=== PATIENT | female | born 1980 | race Two or more races ===

== ENCOUNTER 2021-03-03 12:47 | Outpatient (REF) | payer MEDICAID, SELFPAY ==
--- NOTE | ~2021-03-03 | US_ITS ---
EXAMINATION: US PELVIS CLINICAL INFORMATION: Frequent menses COMPARISON: None TECHNIQUE: Ultrasound of the pelvis is performed using both transabdominal and transvaginal transducers along with Doppler. Transvaginal imaging is performed due to inadequate visualization transabdominally. FINDINGS: The uterus is anteverted and measures 11 x 5.8 x 7.7 cm in dimension. The uterine echotexture is heterogeneous. There is a small hypoechoic lesion in the posterior uterine fundus measuring 1.6 x 1.2 x 1.4 cm suggestive of a fibroid or adenomyoma. No other focal uterine lesion is seen. The endometrium is not well defined. The endometrium does not appear thickened measuring approximately 1.2 cm. There are small nabothian cysts in the cervix. The ovaries are normal. The right ovary measures 2.9 x 2.3 x 1.1 cm. Left ovary measures 2.4 x 2.3 x 1.5 cm. There is no fluid in the pelvis. US/US pelvic and transvaginal IMPRESSION: Prominent heterogeneous uterus with ill-defined endometrium. Findings are questionable for adenomyomatosis. 1.6 x 1.2 x 1.4 cm focal hypoechoic lesion in the posterior uterine fundus questionable for small fibroid versus adenomyoma.
--- NOTE | ~2021-03-03 | MM_ITS ---
EXAMINATION: MM SCREENING DIGITAL BREAST TOMOSYNTHESIS, BILATERAL CLINICAL INFORMATION: Screening. Asymptomatic. The lifetime risk of breast cancer based on the Tyrer-Cuzick Model is 9%. COMPARISON: Mammography: None TECHNIQUE: Digital breast tomosynthesis is performed in both the craniocaudal and mediolateral oblique views along with computer-aided detection (CAD). Synthesized 2D images are generated from the tomosynthesis. Exaggerated right craniocaudal view also performed. FINDINGS: There are scattered areas of fibroglandular density (ACR BI-RADS breast composition Category b). There are no significant masses, abnormal calcifications, or other abnormalities. MM/MM tomosynthesis screening BI IMPRESSION: There are no significant changes from prior study. ASSESSMENT: BI-RADS 1: Negative RECOMMENDATION: Routine annual mammography screening. This patient's information was entered into a reminder system with a target due date for their next mammogram.
== END 2021-03-03 12:48 | disposition home or self-care (01) ==
LOC: HO.MAMMO 12:47
PROVIDERS: Visit Provider Advanced Practice Midwife
DX: Z12.31 Encounter for screening mammogram for malignant neoplasm of breast (principal); N92.0 Excessive and frequent menstruation with regular cycle
CPT/HCPCS: 76830; 76856; 77063; 77067

== ENCOUNTER 2022-01-12 09:55 | Outpatient (REF) | payer MEDICAID, SELFPAY ==
--- NOTE | ~2022-01-12 | XR_ITS ---
EXAMINATION: XR LUMBOSACRAL SPINE WITH OBLIQUES CLINICAL INFORMATION: Low back pain COMPARISON: None TECHNIQUE: AP, both oblique, and lateral views of the lumbar spine. Lateral view of the lumbosacral junction. FINDINGS: There is normal lumbar lordosis. The vertebral heights and alignment is normal. There is mild loss of L4-L5 and L5/S1 disc heights is normal. Rest of the disc heights are normal. No acute fracture, lytic or sclerotic process seen. SI joints are symmetrical. XR/XR lumbar spine 4V min IMPRESSION: Mild degenerative disc changes L4-L5 and L5-S1 disc levels.
[2022-01-12 10:42] LABS: MANUAL DIFF FLAG NO
[2022-01-12 11:32] LABS: Basophils Percent Auto 0.8 % (0-2); Eosinophils Absolute Auto 0.3 X10*3/uL (0.0-0.4); Hematocrit 40.9 % (37.0-47.0); Hemoglobin 13.3 g/dl (12.0-16.0); Imm Gran Abs Auto 0.01 X10*3/uL (0.00-0.03); Imm Gran Pct Auto 0.2 % (0.0-0.4); Lymphocytes Absolute Auto 1.1 X10*3/uL (1.2-4.9); Lymphocytes Percent Auto 22.4 % (20-40); Mean Corpuscular HGB Conc 32.5 g/dl (31.0-35.0); Mean Corpuscular Hemoglobin 26.2 pg (27.0-33.0); Mean Corpuscular Volume 80.5 fL (80.0-98.0); Mean Platelet Volume 11.5 fL (9.4-12.3); Monocytes Absolute Auto 0.4 X10*3/uL (0.1-1.2); Monocytes Percent Auto 6.9 % (2-11); Neutrophils Absolute Auto 3.3 x10*3/uL (2.0-8.3); Neutrophils Percent Auto 64.7 % (45-73); Platelet Count 169 X10*3/uL (160-400); Red Blood Count 5.08 X10*6/uL (4.20-5.50); Red Cell Distribution Width 13.2 % (11.0-16.0)
== END 2022-01-12 09:56 | disposition home or self-care (01) ==
LOC: HO.XRAY 09:55
PROVIDERS: Absent Provider Internal Medicine; PCP Internal Medicine; Visit Provider Internal Medicine Pulmonary Disease
DX: J44.9 Chronic obstructive pulmonary disease, unspecified (principal); M54.50 Low back pain, unspecified; G47.33 Obstructive sleep apnea (adult) (pediatric); Z01.82 Encounter for allergy testing; Z79.899 Other long term (current) drug therapy
CPT/HCPCS: 36415; 72110; 82785; 85025; 86003; 99202

== ENCOUNTER 2022-01-27 08:48 | Outpatient (REF) | payer MEDICAID, SELFPAY ==
--- NOTE | 2022-01-27 14:28 | PFT_ITS ---
FLOWS: FEV1 of 46% of predicted at 1.53 L. FVC 89% of predicted at 3.55 L. FEV1 to FVC ratio of 0.43. Bronchodilator testing was not performed. Patient has used albuterol right before the test. LUNG VOLUMES: Total lung capacity 103% of predicted at 5.68 L. Residual volume 118% of predicted at 2.10 L. Slow vital capacity 96% of predicted at 3.58 L. Expiratory reserve volume 40% of predicted at 0.53 L. Diffusion capacity is normal. In comparison to pulmonary function test from March of 2018, FEV1 has decreased by 0.67 L; FVC has decreased by 0.57 L; total lung capacity has been without significant changes; residual volume has decreased by 1.01 L; slow vital capacity has increased by 0.97 L; expiratory reserve volume has been without significant changes; diffusion capacity has improved by 3.07 mL/minutes per mmHg. IMPRESSION: Severe obstructive ventilatory defect. Bronchodilator testing was not performed as patient used albuterol just prior to testing. Decreased expiratory reserve volume suggests extrathoracic restriction likely secondary to abdominal obesity. MD CEASAR Muller/MODL / [id number]
== END 2022-01-27 08:49 | disposition home or self-care (01) ==
LOC: HO.RESP 08:48
PROVIDERS: PCP Internal Medicine; Visit Provider Internal Medicine Pulmonary Disease
DX: R06.09 Other forms of dyspnea (principal)
CPT/HCPCS: 94010; 94727; 94729

== ENCOUNTER 2022-02-03 08:06 | Outpatient (REF) | payer MEDICAID, SELFPAY | END 2022-02-03 08:07 | disposition home or self-care (01) | LOC: HO.MDS 08:06 | PROVIDERS: Visit Provider Internal Medicine Pulmonary Disease | DX: J45.50 Severe persistent asthma, uncomplicated (principal) | CPT/HCPCS: 96372; J2357 ==

== ENCOUNTER → 2022-02-09 09:54 | Outpatient (REF) | payer MEDICAID, SELFPAY ==
--- NOTE | 2022-02-09 10:08 | CA_ITS ---
Transthoracic Echocardiogram Patient (Last, First, Middle): Christina Gonzalez, Gender: Female Date of : 1980 Age: 41 Procedure Date: 02/09/2022 Procedure Type: Transthoracic Echocardiogram Location: OP Height: 170.18 cm Weight: 93.9 kg BSA: 2.05 m2 Heart Rate: bpm BP: 125 / 90 mmHg Reel Worker: LIZ Referring MD: Yang Dillon MD Symptoms: R06.09 - Other forms of dyspnea Study Quality: Adequate ECG Rhythm: Sinus Conclusions: - The left ventricular systolic function is normal. The calculated ejection fraction is 61% by biplane method. - There is mild tricuspid valve regurgitation. - There is no evidence of pulmonary hypertension. - The inferior vena cava is mildly dilated and collapses less than 50% with inspiration. Findings Left Ventricle Normal left ventricular cavity size. There is normal left ventricular wall thickness. The left ventricular systolic function is normal. The calculated ejection fraction is 61% by biplane method. There is no evidence of regional wall motion abnormalities. Diastolic function is normal for age. LV peak GLS -21.7% (normal). Right Ventricle Normal right ventricular cavity size and systolic function. Atria Both atria are normal in size. Aortic Valve There is a normal trileaflet aortic valve. There is no aortic valve stenosis. There is no aortic valve regurgitation. Mitral Valve The mitral valve appears normal. There is trace mitral valve regurgitation. There is no mitral valve stenosis. Pulmonic Valve The pulmonic valve is likely normal. Tricuspid Valve Normal tricuspid valve structure. There is mild tricuspid valve regurgitation. There is no evidence of pulmonary hypertension. Great Vessels The aortic annulus, sinuses of valsalva, and asc aorta are normal in size. Venous The inferior vena cava is mildly dilated and collapses less than 50% with inspiration. Pericardium/Pleural There is no evidence of pericardial effusion. Prior Study Comparison No prior study available for comparison. Measurements 2D Linear Measurements IVSd: 0.90 0.6-0.9/0.6-1.0 cm LVIDd: 4.46 3.9-5.3/4.2-5.9 cm LVIDd Index: 2.18 2.4-3.2/2.2-3.1 cm/m2 LVIDs: 2.54 2.0-3.6 cm LVPWd: 0.89 0.7-1.1 cm LA Diam: 3.70 2.7-3.8/3.0-4.0 cm LAIDs Index: 1.80 1.5-2.3 cm/m2 LV Mass: 161.40 67-162/88-224 g LV Mass Index: 78.73 43-95/49-115 g/m2 LVOT Diam: 1.90 3.0+(-)1.3 cm 2D Systolic Function EF 4C: 60.20 >55% EF 2C: 58.50 >55% EF BiP: 60.60 >55% Mitral Valve MV Pk E: 0.76 MV PK A: 0.73 MV Decel Time: 283.00 E/A: 1.00 E'Lateral: 10.10 E'Medial: 9.79 E/E' Med: 7.80 E/E' Lat: 7.60 PHT: 83.00 MVA PHT: 2.65 Decel [place]: 2.69 Aortic Valve AoV Pk Ameya: 1.21 AoV Mn Ameya: 0.87 AoV VTI: 0.29 AoV Pk Grad: 6.00 Aov Mn Grad: 3.00 MARGARITO Cont.VTI: 2.46 LVOT LVOT Pk Maeya: 1.17 LVOT Mn Ameya: 0.73 LVOT VTI: 0.25 LVOT Pk Grad: 5.00 LVOT Mn Grad: 3.00 LVOT Diam: 1.90 LVOT Area: 2.84 Diastolic Function MV Pk E: 0.76 MV Pk A: 0.73 E/A: 1.00 E'Medial: 9.79 E/E' Med: 7.80 E' Laterial: 10.10 E/E' Lat: 7.60 Right Ventricle TAPSE (mm): 25.20 TVS' Ameya: 12.30 Tricuspid Valve TR Pk Ameya: 2.42 TR Pk Grad: 23.00 RA Press: 15.00 RVSP: 38.00 Great Vessels Aorta Sinus of Valsalva: 2.92 2.0-3.[address] [place]: 2.54 1.7-3.4 cm Ao Asc: 2.90 2.1-3.4 cm Ao Arch: 2.90 Updated in Other Vendor System with Status of Final Doug Hines MD electronically signed on 02/10/2022 11:53:20 AM with status of Final
== END ==
LOC: HO.SL 09:54
PROVIDERS: PCP Internal Medicine; Visit Provider Internal Medicine Pulmonary Disease
DX: G47.33 Obstructive sleep apnea (adult) (pediatric) (principal); R06.09 Other forms of dyspnea
CPT/HCPCS: 93306; 93356; 95806

== ENCOUNTER 2022-02-17 12:29 | Outpatient (REF) | payer MEDICAID, SELFPAY | END 2022-02-17 12:30 | disposition home or self-care (01) | LOC: HO.MDS 12:29 | PROVIDERS: Visit Provider Internal Medicine Pulmonary Disease | DX: J45.50 Severe persistent asthma, uncomplicated (principal) | CPT/HCPCS: 96372; J2357 ==

== ENCOUNTER → 2022-02-23 11:28 | Outpatient (BNVA) | payer MEDICAID, SELFPAY | PROVIDERS: PCP Internal Medicine; Visit Provider Internal Medicine Pulmonary Disease | DX: J44.9 Chronic obstructive pulmonary disease, unspecified (principal); Z91.09 Other allergy status, other than to drugs and biological substances; R06.09 Other forms of dyspnea; G47.33 Obstructive sleep apnea (adult) (pediatric) | CPT/HCPCS: 99212 ==

== ENCOUNTER 2022-03-03 08:02 | Outpatient (REF) | payer MEDICAID, SELFPAY | END 2022-03-03 08:03 | disposition home or self-care (01) | LOC: HO.MDS 08:02 | PROVIDERS: Visit Provider Internal Medicine Pulmonary Disease | DX: J45.50 Severe persistent asthma, uncomplicated (principal) | CPT/HCPCS: 96372; J2357 ==

== ENCOUNTER 2022-03-16 12:57 | Outpatient (REF) | payer MEDICAID, SELFPAY ==
--- NOTE | ~2022-03-16 | US_ITS ---
EXAMINATION: US PELVIS CLINICAL INFORMATION: Excessive and frequent menses. COMPARISON: Previous pelvic ultrasound February 2021. TECHNIQUE: Ultrasound of the pelvis is performed using both transabdominal and transvaginal transducers along with Doppler. Transvaginal imaging is performed due to inadequate visualization transabdominally. FINDINGS: The uterus is anteverted and measures 9.5 x 5.7 x 7.9 cm in dimension. There is a 2.3 x 2 x 2.5 cm hypoechoic lesion in the uterine fundus. This is increased from 1.6 x 1.2 x 1.4 cm on previous exam. No other focal uterine lesion. Uterine echotexture is heterogeneous in the endometrium is difficult to define and again question for adenomyomatosis. Endometrial thickness is normal appearing 0.7 cm. There are nabothian cysts in the cervix. The ovaries are normal. The right ovary measures 2 x 2.1 x 2.2 cm. Left ovary measures 2.3 x 1.5 x 2 cm. There is no fluid in the pelvis. US/US pelvic and transvaginal IMPRESSION: Heterogeneous uterus and ill-defined endometrium questionable for adenomyosis. Endometrium is normal in thickness measuring 0.7 cm. Interval increase in now 2.3 x 2 x 2.5 cm hypoechoic lesion in the uterine fundus questionable for fibroid versus adenomyoma.
== END 2022-03-16 12:58 | disposition home or self-care (01) ==
LOC: HO.HMGCX 12:57
PROVIDERS: Visit Provider Advanced Practice Midwife
DX: N92.1 Excessive and frequent menstruation with irregular cycle (principal)
CPT/HCPCS: 76830; 76856

== ENCOUNTER 2022-03-17 07:48 | Outpatient (REF) | payer MEDICAID, SELFPAY | END 2022-03-17 07:49 | disposition home or self-care (01) | LOC: HO.MDS 07:48 | PROVIDERS: Visit Provider Internal Medicine Pulmonary Disease | DX: J45.50 Severe persistent asthma, uncomplicated (principal) | CPT/HCPCS: 96372; J2357 ==

== ENCOUNTER 2022-03-30 08:48 | Outpatient (REF) | payer MEDICAID, SELFPAY ==
--- NOTE | ~2022-03-30 | MM_ITS ---
EXAMINATION: MM SCREENING DIGITAL BREAST TOMOSYNTHESIS, BILATERAL CLINICAL INFORMATION: Screening. Asymptomatic. The lifetime risk of breast cancer based on the Tyrer-Cuzick Model is 8.8%. COMPARISON: Mammography: March 03, 2021 TECHNIQUE: Digital breast tomosynthesis is performed in both the craniocaudal and mediolateral oblique views along with computer-aided detection (CAD). Synthesized 2D images are generated from the tomosynthesis. FINDINGS: The breasts are heterogeneously dense, which may obscure small masses (ACR BI-RADS breast composition Category c). There are no significant masses, abnormal calcifications, or other abnormalities. MM/MM tomosynthesis screening BI IMPRESSION: No significant changes from prior exam. ASSESSMENT: BI-RADS 1: Negative RECOMMENDATION: Routine annual mammography screening. This patient's information was entered into a reminder system with a target due date for their next mammogram.
== END 2022-03-30 08:49 | disposition home or self-care (01) ==
LOC: HO.MAMMO 08:48
PROVIDERS: PCP Internal Medicine; Visit Provider Internal Medicine
DX: Z12.31 Encounter for screening mammogram for malignant neoplasm of breast (principal)
CPT/HCPCS: 77063; 77067

== ENCOUNTER 2022-03-31 07:58 | Outpatient (REF) | payer MEDICAID, SELFPAY | END 2022-03-31 07:59 | disposition home or self-care (01) | LOC: HO.MDS 07:58 | PROVIDERS: Visit Provider Internal Medicine Pulmonary Disease | DX: J45.50 Severe persistent asthma, uncomplicated (principal) | CPT/HCPCS: 96372; J2357 ==

== ENCOUNTER 2022-04-14 07:34 | Outpatient (REF) | payer MEDICAID, SELFPAY | END 2022-04-14 07:35 | disposition home or self-care (01) | LOC: HO.MDS 07:34 | PROVIDERS: PCP Internal Medicine; Visit Provider Internal Medicine Pulmonary Disease | DX: J45.50 Severe persistent asthma, uncomplicated (principal) | CPT/HCPCS: 96372; J2357 ==

== ENCOUNTER 2022-04-28 07:57 | Outpatient (REF) | payer MEDICAID, SELFPAY | END 2022-04-28 07:58 | disposition home or self-care (01) | LOC: HO.MDS 07:57 | PROVIDERS: Visit Provider Internal Medicine Pulmonary Disease | DX: J45.50 Severe persistent asthma, uncomplicated (principal) | CPT/HCPCS: 96372; J2357 ==

== ENCOUNTER 2022-05-12 07:49 | Outpatient (REF) | payer MEDICAID, SELFPAY | END 2022-05-12 07:50 | disposition home or self-care (01) | LOC: HO.MDS 07:49 | PROVIDERS: Visit Provider Internal Medicine Pulmonary Disease | DX: J45.50 Severe persistent asthma, uncomplicated (principal) | CPT/HCPCS: 96372; J2357 ==

== ENCOUNTER 2022-05-26 07:59 | Outpatient (REF) | payer MEDICAID, SELFPAY | END 2022-05-26 08:00 | disposition home or self-care (01) | LOC: HO.MDS 07:59 | PROVIDERS: Visit Provider Internal Medicine Pulmonary Disease | DX: J45.50 Severe persistent asthma, uncomplicated (principal) | CPT/HCPCS: 96372; J2357 ==

== ENCOUNTER 2022-06-09 08:54 | Outpatient (REF) | payer MEDICAID, SELFPAY | END 2022-06-09 08:55 | disposition home or self-care (01) | LOC: HO.MDS 08:54 | PROVIDERS: Visit Provider Internal Medicine Pulmonary Disease | DX: J45.50 Severe persistent asthma, uncomplicated (principal) | CPT/HCPCS: 96372; J2357 ==

== ENCOUNTER 2022-06-23 08:57 | Outpatient (REF) | payer MEDICAID, SELFPAY | END 2022-06-23 08:58 | disposition home or self-care (01) | LOC: HO.MDS 08:57 | PROVIDERS: Visit Provider Internal Medicine Pulmonary Disease | DX: J45.50 Severe persistent asthma, uncomplicated (principal) | CPT/HCPCS: 96372; J2357 ==

== ENCOUNTER 2022-07-07 08:33 | Outpatient (REF) | payer MEDICAID, SELFPAY | END 2022-07-07 08:34 | disposition home or self-care (01) | LOC: HO.MDS 08:33 | PROVIDERS: Visit Provider Internal Medicine Pulmonary Disease | DX: J45.50 Severe persistent asthma, uncomplicated (principal) | CPT/HCPCS: 96372; J2357 ==

== ENCOUNTER 2022-07-21 08:54 | Outpatient (REF) | payer MEDICAID, SELFPAY | END 2022-07-21 08:55 | disposition home or self-care (01) | LOC: HO.MDS 08:54 | PROVIDERS: Visit Provider Internal Medicine Pulmonary Disease | DX: J45.50 Severe persistent asthma, uncomplicated (principal) | CPT/HCPCS: 96372; J2357 ==

== ENCOUNTER 2022-08-04 14:45 | Outpatient (REF) | payer MEDICAID, SELFPAY | END 2022-08-04 14:46 | disposition home or self-care (01) | LOC: HO.MDS 14:45 | PROVIDERS: Visit Provider Internal Medicine Pulmonary Disease | DX: J45.50 Severe persistent asthma, uncomplicated (principal) | CPT/HCPCS: 96372; J2357 ==

== ENCOUNTER 2022-08-18 12:37 | Outpatient (REF) | payer MEDICAID, SELFPAY | END 2022-08-18 12:38 | disposition home or self-care (01) | LOC: HO.MDS 12:37 | PROVIDERS: Visit Provider Internal Medicine Pulmonary Disease | DX: J45.50 Severe persistent asthma, uncomplicated (principal) | CPT/HCPCS: 96372; J2357 ==

== ENCOUNTER 2022-09-01 07:54 | Outpatient (REF) | payer MEDICAID, SELFPAY | END 2022-09-01 07:55 | disposition home or self-care (01) | LOC: HO.MDS 07:54 | PROVIDERS: Visit Provider Internal Medicine Pulmonary Disease | DX: J45.50 Severe persistent asthma, uncomplicated (principal) | CPT/HCPCS: 96372; J2357 ==

== ENCOUNTER 2022-09-15 07:51 | Outpatient (REF) | payer MEDICAID, SELFPAY | END 2022-09-15 07:52 | disposition home or self-care (01) | LOC: HO.MDS 07:51 | PROVIDERS: Visit Provider Internal Medicine Pulmonary Disease | DX: J45.50 Severe persistent asthma, uncomplicated (principal) | CPT/HCPCS: 96372; J2357 ==

== ENCOUNTER 2022-09-29 07:58 | Outpatient (REF) | payer MEDICAID, SELFPAY | END 2022-09-29 07:59 | disposition home or self-care (01) | LOC: HO.MDS 07:58 | PROVIDERS: Visit Provider Internal Medicine Pulmonary Disease | DX: J45.50 Severe persistent asthma, uncomplicated (principal) | CPT/HCPCS: 96372; J2357 ==

== ENCOUNTER 2022-10-13 07:45 | Outpatient (REF) | payer MEDICAID, SELFPAY | END 2022-10-13 07:46 | disposition home or self-care (01) | LOC: HO.MDS 07:45 | PROVIDERS: Visit Provider Internal Medicine Pulmonary Disease | DX: J45.50 Severe persistent asthma, uncomplicated (principal) | CPT/HCPCS: 96372; J2357 ==

== ENCOUNTER → 2022-10-26 10:04 | Outpatient (BNVA) | payer MEDICAID, SELFPAY | PROVIDERS: PCP Internal Medicine; Visit Provider Internal Medicine Pulmonary Disease | DX: J44.9 Chronic obstructive pulmonary disease, unspecified (principal); Z91.09 Other allergy status, other than to drugs and biological substances | CPT/HCPCS: 99212 ==

== ENCOUNTER 2022-10-27 07:58 | Outpatient (REF) | payer MEDICAID, SELFPAY | END 2022-10-27 07:59 | disposition home or self-care (01) | LOC: HO.MDS 07:58 | PROVIDERS: Visit Provider Internal Medicine Pulmonary Disease | DX: J45.50 Severe persistent asthma, uncomplicated (principal) | CPT/HCPCS: 96372; J2357 ==

== ENCOUNTER 2022-11-10 07:57 | Outpatient (REF) | payer MEDICAID, SELFPAY | END 2022-11-10 07:58 | disposition home or self-care (01) | LOC: HO.MDS 07:57 | PROVIDERS: Visit Provider Internal Medicine Pulmonary Disease | DX: J45.50 Severe persistent asthma, uncomplicated (principal) | CPT/HCPCS: 96372; J2357 ==

== ENCOUNTER 2022-11-24 07:56 | Outpatient (REF) | payer MEDICAID, SELFPAY | END 2022-11-24 07:57 | disposition home or self-care (01) | LOC: HO.MDS 07:56 | PROVIDERS: Visit Provider Internal Medicine Pulmonary Disease | DX: J45.50 Severe persistent asthma, uncomplicated (principal) | CPT/HCPCS: 96372; J2357 ==

== ENCOUNTER 2022-12-08 07:47 | Outpatient (REF) | payer MEDICAID, SELFPAY | END 2022-12-08 07:48 | disposition home or self-care (01) | LOC: HO.MDS 07:47 | PROVIDERS: Visit Provider Internal Medicine Pulmonary Disease | DX: J45.50 Severe persistent asthma, uncomplicated (principal) | CPT/HCPCS: 96372; J2357 ==

== ENCOUNTER 2022-12-22 07:11 | Outpatient (REF) | payer MEDICAID, SELFPAY | END 2022-12-22 07:12 | disposition home or self-care (01) | LOC: HO.MDS 07:11 | PROVIDERS: Visit Provider Internal Medicine Pulmonary Disease | DX: J45.50 Severe persistent asthma, uncomplicated (principal) | CPT/HCPCS: 96372; J2357 ==

== ENCOUNTER 2023-01-05 14:31 | Outpatient (REF) | payer MEDICAID, SELFPAY | END 2023-01-05 14:32 | disposition home or self-care (01) | LOC: HO.MDS 14:31 | PROVIDERS: Visit Provider Internal Medicine Pulmonary Disease | DX: J45.50 Severe persistent asthma, uncomplicated (principal) | CPT/HCPCS: 96372; J2357 ==

== ENCOUNTER 2023-01-19 07:31 | Outpatient (REF) | payer MEDICAID, SELFPAY | END 2023-01-19 07:32 | disposition home or self-care (01) | LOC: HO.MDS 07:31 | PROVIDERS: Visit Provider Internal Medicine Pulmonary Disease | DX: J45.50 Severe persistent asthma, uncomplicated (principal) | CPT/HCPCS: 96372; J2357 ==

== ENCOUNTER 2023-02-02 07:27 | Outpatient (REF) | payer MEDICAID, SELFPAY | END 2023-02-02 07:28 | disposition home or self-care (01) | LOC: HO.MDS 07:27 | PROVIDERS: Visit Provider Internal Medicine Pulmonary Disease | DX: J45.50 Severe persistent asthma, uncomplicated (principal) | CPT/HCPCS: 96372; J2357 ==

== ENCOUNTER 2023-02-16 07:05 | Outpatient (REF) | payer MEDICAID, SELFPAY | END 2023-02-16 07:06 | disposition home or self-care (01) | LOC: HO.MDS 07:05 | PROVIDERS: Visit Provider Internal Medicine Pulmonary Disease | DX: J45.50 Severe persistent asthma, uncomplicated (principal) | CPT/HCPCS: 96372; J2357 ==

== ENCOUNTER 2023-03-02 07:15 | Outpatient (REF) | payer MEDICAID, SELFPAY | END 2023-03-02 07:16 | disposition home or self-care (01) | LOC: HO.MDS 07:15 | PROVIDERS: Visit Provider Internal Medicine Pulmonary Disease | DX: J45.50 Severe persistent asthma, uncomplicated (principal) | CPT/HCPCS: 96372; J2357 ==

== ENCOUNTER 2023-03-16 07:12 | Outpatient (REF) | payer MEDICAID, SELFPAY | END 2023-03-16 07:13 | disposition home or self-care (01) | LOC: HO.MDS 07:12 | PROVIDERS: Visit Provider Internal Medicine Pulmonary Disease | DX: J45.50 Severe persistent asthma, uncomplicated (principal) | CPT/HCPCS: 96372; J2357 ==

== ENCOUNTER 2023-03-30 07:20 | Outpatient (REF) | payer MEDICAID, SELFPAY | END 2023-03-30 07:21 | disposition home or self-care (01) | LOC: HO.MDS 07:20 | PROVIDERS: Visit Provider Internal Medicine Pulmonary Disease | DX: J45.50 Severe persistent asthma, uncomplicated (principal) | CPT/HCPCS: 96372; J2357 ==

== ENCOUNTER 2023-04-13 08:09 | Outpatient (REF) | payer MEDICAID, SELFPAY | END 2023-04-13 08:10 | disposition home or self-care (01) | LOC: HO.MDS 08:09 | PROVIDERS: PCP Internal Medicine; Visit Provider Internal Medicine Pulmonary Disease | DX: J45.50 Severe persistent asthma, uncomplicated (principal) | CPT/HCPCS: 96372; J2357 ==

== ENCOUNTER 2023-04-27 07:11 | Outpatient (REF) | payer MEDICAID, SELFPAY | END 2023-04-27 07:12 | disposition home or self-care (01) | LOC: HO.MDS 07:11 | PROVIDERS: Visit Provider Internal Medicine Pulmonary Disease | DX: J45.50 Severe persistent asthma, uncomplicated (principal) | CPT/HCPCS: 96372; J2357 ==

== ENCOUNTER → 2023-05-10 07:45 | Outpatient (BNV) | payer MEDICAID, SELFPAY | PROVIDERS: PCP Internal Medicine; Visit Provider Radiology Diagnostic Radiology | DX: Z12.31 Encounter for screening mammogram for malignant neoplasm of breast (principal) | CPT/HCPCS: 77063; 77067 ==

== ENCOUNTER 2023-05-10 07:48 | Outpatient (REF) | payer MEDICAID, SELFPAY | END 2023-05-10 07:49 | disposition home or self-care (01) | LOC: HO.MAMMO 07:48 | PROVIDERS: PCP Internal Medicine; Visit Provider Internal Medicine | DX: Z12.31 Encounter for screening mammogram for malignant neoplasm of breast (principal) | CPT/HCPCS: 77063; 77067; 99212 ==

== ENCOUNTER 2023-05-10 10:12 | Outpatient (AMB) | payer MEDICAID, SELFPAY ==
[2023-05-10 10:15] VITALS: BP 118/67; PULSE 99; O2SAT 98; BMI 32.6
--- NOTE | 2023-05-10 10:15 | MHC.OFFVIS ---
Intake Vital Signs 05/10/23 10:15 Height 5 ft 7 in Weight 208 lb 5.389 oz BMI 32.6 BP 118/67 Blood Pressure Location Rt brachial Position Sitting Pulse 99 Pulse Source Doppler Pulse Oximetry (%) 98 Oxygen Delivery Method Room Air Intake Visit Reasons: asthma Allergies No Known Allergies Allergy (Mild, Verified 10/26/22 10:09) NOT APPLICABLE HPI asthma HPI Details 43-year-old lady followed for underlying asthma/COPD overlap syndrome and environmental allergies.? She has been on Xolair, Advair, Spiriva, and albuterol MDI with excellent control of his symptoms. She denies any recent exacerbations. Patient has tried to titrate herself of Spiriva or Advair, however her symptoms have recurred. Review of Systems Const Denies daytime sleepiness, Denies excessive sweating, Denies fatigue, Denies fever(s), Denies lethargy, Denies malaise, Denies night sweats, Denies snoring and Denies weight loss Eyes Denies blurry vision and Denies itchy eyes ENT Denies nasal congestion, Denies post nasal drip, Denies sinus pain, Denies sinus pressure and Denies other ( Thrush) Card Denies chest pain, Denies pedal edema, Denies dyspnea, Denies orthopnea and Denies paroxysmal nocturnal dyspnea Resp Denies cough, Denies hemoptysis, Denies excessive phlegm production, Denies dyspnea, Denies snoring and Denies wheezing GI Denies abdominal pain and Denies heartburn Musc Denies myalgias, Denies arthralgias and Denies joint swelling Skin/Breast Denies rash Neuro Denies memory loss and Denies seizure-like activity Psych Denies abnormal sleep pattern, Denies anxiety and Denies memory loss Endo Denies excessive sweating, Denies fatigue and Denies heat intolerance Justin/Lymph Denies easy bruising Aller/Immun Denies itchy eyes, Denies seasonal rhinorrhea and Denies wheezing Physical Exam Vital Signs: Last Vital Signs Pulse 99 05/10/23 10:15 BP 118/67 05/10/23 10:15 Pulse Ox 98 05/10/23 10:15 Oxygen Delivery Method Room Air 05/10/23 10:15 BMI result Body Mass Index 32.6 Const General: no acute distress and alert Nutritional Appearance: not obese Orientation/consciousness: Other orientation findings ( oriented) HEENT Head: Yes atraumatic Eyes General: appearance normal, both eyes and all related structures Sclerae: sclerae normal EOM: EOMs intact bilaterally Neck Neck: Yes supple Lymphatic: no lymphadenopathy noted Resp Effort & Inspection: normal respiratory effort and no use of accessory muscles Auscultation: clear to auscultation bilaterally Cardio Rate: regular rate Rhythm: regular rhythm Heart sounds: no gallops, no murmurs and no rubs Skin General skin exam: other ( warm) Extrem General: No clubbing, No cyanosis and No edema Assessment & Plan Assessment & Plan (1) Asthma-COPD overlap syndrome: Code(s): J44.9 - Chronic obstructive pulmonary disease, unspecified Plan: Well controlled current regimen of Xolair, Advair, Spiriva, and albuterol MDI. Continue current regimen. (2) Environmental allergies: Code(s): Z91.09 - Other allergy status, other than to drugs and biological substances Plan: Well controlled on Xolair. Continue current regimen. Coding Level of Care Code Est Pt Level 4 (28443) Diagnoses Asthma-COPD overlap syndrome J44.9 Environmental allergies Z91.09
== END 2023-05-10 10:27 | disposition home or self-care (01) ==
PROVIDERS: PCP Internal Medicine; Referring Provider Internal Medicine; Visit Provider Internal Medicine Pulmonary Disease
DX: J44.9 Chronic obstructive pulmonary disease, unspecified (principal); Z91.09 Other allergy status, other than to drugs and biological substances
CPT/HCPCS: 99214

== ENCOUNTER 2023-05-11 07:28 | Outpatient (REF) | payer MEDICAID, SELFPAY | END 2023-05-11 07:29 | disposition home or self-care (01) | LOC: HO.MDS 07:28 | PROVIDERS: Visit Provider Internal Medicine Pulmonary Disease | DX: J45.50 Severe persistent asthma, uncomplicated (principal) | CPT/HCPCS: 96372; J2357 ==

== ENCOUNTER 2023-05-25 06:57 | Outpatient (REF) | payer MEDICAID, SELFPAY | END 2023-05-25 06:58 | disposition home or self-care (01) | LOC: HO.MDS 06:57 | PROVIDERS: Visit Provider Internal Medicine Pulmonary Disease | DX: J45.50 Severe persistent asthma, uncomplicated (principal) | CPT/HCPCS: 96372; J2357 ==

== ENCOUNTER 2023-06-08 13:59 | Outpatient (REF) | payer MEDICAID, SELFPAY | END 2023-06-08 14:00 | disposition home or self-care (01) | LOC: HO.MDS 13:59 | PROVIDERS: Visit Provider Internal Medicine Pulmonary Disease | DX: J45.50 Severe persistent asthma, uncomplicated (principal) | CPT/HCPCS: 96372; J2357 ==

== ENCOUNTER 2023-06-22 07:24 | Outpatient (REF) | payer MEDICAID, SELFPAY | END 2023-06-22 07:25 | disposition home or self-care (01) | LOC: HO.MDS 07:24 | PROVIDERS: Visit Provider Internal Medicine Pulmonary Disease | DX: J45.50 Severe persistent asthma, uncomplicated (principal) | CPT/HCPCS: 96372; J2357 ==

== ENCOUNTER 2023-07-06 07:25 | Outpatient (REF) | payer MEDICAID, SELFPAY ==
[2023-07-06 07:40] VITALS: BP 133/88; PULSE 73; RESP 16; TEMP 36.4; O2SAT 99
[2023-07-06] MEDS: Omalizumab 300 MG, Omalizumab 75 MG 375 MG SUBCUT (07:42)
--- NOTE | 2023-07-06 07:48 | HO.INF ---
PT UNABLE TO WAIT ALLOTED TIME. EDUCATED ON S/SX OF ALLERGIC REACTION
== END 2023-07-06 07:26 | disposition home or self-care (01) ==
LOC: HO.MDS 07:25
PROVIDERS: Visit Provider Internal Medicine Pulmonary Disease
DX: J45.50 Severe persistent asthma, uncomplicated (principal)
CPT/HCPCS: 96372; J2357

== ENCOUNTER 2023-07-19 13:22 | Outpatient (REF) | payer MEDICAID, SELFPAY ==
[2023-07-19 16:14] LABS: Hematocrit 39.3 % (37.0-47.0); Mean Corpuscular HGB Conc 33.1 g/dl (31.0-35.0); Mean Corpuscular Hemoglobin 26.4 pg (27.0-33.0); Mean Corpuscular Volume 79.9 fL (80.0-98.0); Mean Platelet Volume 11.8 fL (9.4-12.3); Platelet Count 169 X10*3/uL (160-400); Red Blood Count 4.92 X10*6/uL (4.20-5.50); Red Cell Distribution Width 12.3 % (11.0-16.0); White Blood Count 5.6 X10*3/uL (4.8-10.8)
[2023-07-19 16:48] LABS: TSH reflex Free T4 1.91 uIU/mL (0.32-4.0)
[2023-07-20 07:34] LABS: Follicle Stimulating Hormone 7.4 mIU/mL; Prolactin 76.2 ng/mL
[2023-07-27 00:49] LABS: Estradiol Ultra Sensitive 62 pg/mL
== END 2023-07-19 13:23 | disposition home or self-care (01) ==
LOC: HO.HHCL 13:22
PROVIDERS: Visit Provider Advanced Practice Midwife
DX: N93.9 Abnormal uterine and vaginal bleeding, unspecified (principal)
CPT/HCPCS: 36415; 82670; 83001; 84146; 84443; 85027

== ENCOUNTER 2023-07-20 07:15 | Outpatient (REF) | payer MEDICAID, SELFPAY ==
[2023-07-20 07:17] VITALS: BP 127/80; PULSE 76; RESP 20; TEMP 36.1; O2SAT 100
[2023-07-20] MEDS: Omalizumab 300 MG, Omalizumab 75 MG 375 MG SUBCUT (07:21)
== END 2023-07-20 07:16 | disposition home or self-care (01) ==
LOC: HO.MDS 07:15
PROVIDERS: Visit Provider Internal Medicine Pulmonary Disease
DX: J45.50 Severe persistent asthma, uncomplicated (principal)
CPT/HCPCS: 96372; J2357

== ENCOUNTER 2023-07-26 08:53 | Outpatient (REF) | payer MEDICAID, SELFPAY ==
[2023-07-27 08:34] LABS: Prolactin 100.1 ng/mL
== END 2023-07-26 08:54 | disposition home or self-care (01) ==
LOC: HO.HHCL 08:53
PROVIDERS: Visit Provider Advanced Practice Midwife
DX: R79.89 Other specified abnormal findings of blood chemistry (principal)
CPT/HCPCS: 36415; 84146

== ENCOUNTER 2023-08-02 11:06 | Outpatient (REF) | payer MEDICAID, SELFPAY ==
--- NOTE | ~2023-08-02 | US_ITS ---
EXAMINATION: US PELVIS CLINICAL INFORMATION: Menorrhagia LMP 07/07/2023 COMPARISON: Pelvic ultrasound 03/16/2022 and 03/03/2021 TECHNIQUE: Ultrasound of the pelvis is performed using both transabdominal and transvaginal transducers along with Doppler. Transvaginal imaging is performed due to inadequate visualization transabdominally. Technically limited study due to overlying bowel gas and body habitus. FINDINGS: Uterus: The uterus is anteverted and measures 12.3 x 5.9 x 7.1 cm. Previously noted 2.5 hypoechoic lesion in the uterine fundus is not appreciated on the current study. 2.6 x 2.0 x 1.7 cm ill-defined isoechoic focus in the left anterior body has slightly vascular flow, probable submucosal component. The endometrial thickness is 1.8 cm. Upper limits of normal is 1.6 cm. Adnexa: Both ovaries are visualized. There is normal color flow to the adnexa. There is no ovarian torsion. There is no pelvic ascites or fluid collection. Right ovary measures 3.6 x 2.4 x 2.4 cm. Volume 10.8 mL. Left ovary measures 2.9 x 1.6 x 1.4 cm. Volume 3.4 mL. US/US pelvic and transvaginal IMPRESSION: 1. 2.6 cm ill-defined isoechoic focus in the left anterior body is slight vascular flow, probable submucosal component. 2. Normal ovaries. 3. Thickening of the endometrial stripe.
== END 2023-08-02 11:07 | disposition home or self-care (01) ==
LOC: HO.US 11:06
PROVIDERS: PCP Internal Medicine; Visit Provider Internal Medicine
DX: N93.9 Abnormal uterine and vaginal bleeding, unspecified (principal)
CPT/HCPCS: 76830; 76856

== ENCOUNTER 2023-10-10 10:51 | Outpatient (AMB) | payer MEDICAID, SELFPAY ==
[2023-10-10 11:15] VITALS: BP 124/76; BMI 33.6
--- NOTE | 2023-10-10 11:15 | MHC.OFFVIS ---
Vital Signs 10/10/23 11:15 Height 5 ft 6 in Weight 208 lb BMI 33.6 BP 124/76 Intake Visit Reasons: New patient AUB Business Rules Developer Required: No Information Interpreted: non-clinical & clinical Features Reporter: Features Reporter Present (Toma BOYD) Accompanied by: Self / Same As Patient Allergies No Known Allergies Allergy (Mild, Verified 10/10/23 11:17) NOT APPLICABLE HPI Comments Details: The patient is presenting c/o irregular bleeding associated with passage of blood clots and abdominal cramping. it started a years ago and is getting worse no other associated symptoms. Last mammogram was in 05/23 was BI-RADS 1 PFSH Medical History Asthma Family History Mother Diabetes Social History Household Members: Children Housing: Apartment Alcohol intake: never Patient Tobacco Use Status: Former Tobacco user Tobacco use type: Cigarette Years Smoked: 10 Use of substances other than those prescribed or required for medical reasons: Yes Substance Use Type: Marijuana Current occupational status: employed Current occupation: [employer] Sexually active: No Sexual orientation: Straight/Heterosexual Gender identity: Female Female Reproductive History Menstrual Total pregnancies: 5 Full term: 4 Number of Living Children: 4 Ab induced: 1 Date of Mammogram: 05/10/23 Review of Systems Const All systems reviewed & are unremarkable except as noted in HPI and below Card Reports as per HPI Resp Reports as per HPI GI Reports as per HPI and Reports no additional complaints Reports as per HPI Physical Exam Vital Signs: Last Vital Signs BP 124/76 10/10/23 11:15 BMI result Body Mass Index 33.6 Const General: cooperative, healthy appearing and comfortable Chest Chest palpation & inspection: normal inspection of the chest and normal palpation of entire chest wall Breast/axilla inspection: normal inspection of the breasts and normal inspection of the axillae Breast/axilla palpation: normal palpation of the breasts, normal palpation of the axillae and no axillary lymphadenopathy Resp Effort & Inspection: normal respiratory effort Auscultation: clear to auscultation bilaterally Percussion: percussion normal Cardio Palpation: normal PMI Rate: regular rate Rhythm: regular rhythm Heart sounds: no murmurs and no rubs Peripheral pulses: Peripheral pulses 2+ throughout GI Inspection: Yes normal to inspection Palpation (GI): Soft to palpation, nontender, no guarding, not rigid and No hepatosplenomegaly present Percussion: Yes normal to percussion Auscultation: normal bowel sounds Rectal Exam - Female: deferred General: Yes bladder normal to palpation External Female Exam: No lesion Speculum Exam - Vagina: normal appearance of the vagina, normal palpation, normal vaginal discharge and not erythematous Speculum Exam - Cervix: normal appearance of the cervix and normal palpation Bimanual exam- vagina & uterus: normal bimanual exam, normal palpation, uterine size normal, bladder normal to palpation, consistency normal and normal palpation Bimanual Exam- Adnexa, other: normal adnexae, no masses and no tenderness Results AMB Test Urine AMB Test Urine Negative Last Edit by Toma Peña CMA on 10/10/23 11:25 Results Reviewed Results Reviewed: Laboratory Last Values Tst Clinic Negative 10/10/23 11:25 Assessment & Plan Assessment & Plan (1) Abnormal uterine bleeding: Code(s): N93.9 - Abnormal uterine and vaginal bleeding, unspecified Category: Medical Plan: Co testing done, GC and chlamydia taken CBC, TSH, prolactin, HCG, and pelvic ultrasound ordered. Discussed with the patient the different causes of abnormal bleeding including thyroid disorders, uterine and ovarian pathology, endometrial hyperplasia, carcinoma and other potential causes. Discussed with the patient the work up including CBC (to r/o anemia), TSH, prolactin, pelvic Ultrasound, endometrial biopsy to r/o endometrial pathology. All questions answered and the patient verbalized understanding. Instructed the patient to schedule an appointment for an endometrial biopsy in 2 weeks. Orders: Orders US pelvic and transvaginal Today N93.9 - Abnormal uterine and vaginal bleeding, unspecified Complete Blood Count no Diff Today N93.9 - Abnormal uterine and vaginal bleeding, unspecified TSH reflex Free T4 Today N93.9 - Abnormal uterine and vaginal bleeding, unspecified AMB HCG Urine Test Today Z32.02 - Encounter for test, result negative Prolactin Today N93.9 - Abnormal uterine and vaginal bleeding, unspecified HCG Quantitative Today N93.9 - Abnormal uterine and vaginal bleeding, unspecified Coding Level of Care Code New Pt Level 3 (02691) Diagnoses Abnormal uterine bleeding N93.9
== END 2023-10-10 13:23 | disposition home or self-care (01) ==
PROVIDERS: PCP Internal Medicine; Visit Provider Obstetrics & Gynecology
DX: N93.9 Abnormal uterine and vaginal bleeding, unspecified (principal); Z32.02 Encounter for pregnancy test, result negative
CPT/HCPCS: 99203

== ENCOUNTER 2023-10-10 10:51 | Outpatient (REF) | payer MEDICAID, SELFPAY ==
[2023-10-17 20:44] LABS: HPV mRNA E6/E7 rflx Not Detected (Not Detected)
== END 2023-10-10 10:52 | disposition home or self-care (01) ==
LOC: HO.LNP 10:51
PROVIDERS: PCP Internal Medicine; Visit Provider Obstetrics & Gynecology
DX: N93.9 Abnormal uterine and vaginal bleeding, unspecified (principal); R10.9 Unspecified abdominal pain
CPT/HCPCS: 81025; 87624; 88142; 99202

== ENCOUNTER 2023-10-10 11:44 | Outpatient (REF) | payer MEDICAID, SELFPAY ==
[2023-10-10 12:19] LABS: Hematocrit 37.6 % (37.0-47.0); Hemoglobin 12.9 g/dl (12.0-16.0); Mean Corpuscular HGB Conc 34.3 g/dl (31.0-35.0); Mean Corpuscular Hemoglobin 26.9 pg (27.0-33.0); Mean Corpuscular Volume 78.3 fL (80.0-98.0); Mean Platelet Volume 10.7 fL (9.4-12.3); Platelet Count 159 X10*3/uL (160-400); Red Cell Distribution Width 12.4 % (11.0-16.0); White Blood Count 5.8 X10*3/uL (4.8-10.8)
[2023-10-10 12:56] LABS: HCG Quantitative < 2 mIU/mL; TSH reflex Free T4 3.11 uIU/mL (0.32-4.0)
[2023-10-10 16:38] LABS: CT PCR NOT DETECTED (Not Detect.); NG PCR NOT DETECTED (Not Detect.)
[2023-10-12 01:22] LABS: Prolactin 53.5 ng/mL
== END 2023-10-10 11:45 | disposition home or self-care (01) ==
LOC: HO.LAB 11:44
PROVIDERS: PCP Internal Medicine; Visit Provider Obstetrics & Gynecology
DX: N93.9 Abnormal uterine and vaginal bleeding, unspecified (principal)
CPT/HCPCS: 0353U; 36415; 81025; 84146; 84443; 84702; 85027; 87624; 88142; 99202

== ENCOUNTER 2023-10-15 08:55 | Outpatient (REF) | payer MEDICAID, SELFPAY ==
[2023-10-16 13:03] LABS: Prolactin 54.6 ng/mL
== END 2023-10-15 08:56 | disposition home or self-care (01) ==
LOC: HO.LAB 08:55
PROVIDERS: PCP Internal Medicine; Visit Provider Obstetrics & Gynecology
DX: R79.89 Other specified abnormal findings of blood chemistry (principal)
CPT/HCPCS: 36415; 84146

== ENCOUNTER 2023-10-18 11:18 | Outpatient (REF) | payer MEDICAID, SELFPAY ==
--- NOTE | ~2023-10-18 | US_ITS ---
EXAMINATION: US PELVIS CLINICAL INFORMATION: Abnormal uterine and vaginal bleeding, last menstrual period 10/05/2023. COMPARISON: 08/22/2023. TECHNIQUE: Ultrasound of the pelvis is performed using both transabdominal and transvaginal transducers along with Doppler. Transvaginal imaging is performed due to inadequate visualization transabdominally. FINDINGS: The uterus is anteverted and measures 10.2 x 5.5 x 7.6 cm. Previously identified 2.5 cm and 2.6 cm fibroids are not clearly visualized, although evaluation limited due to substantially heterogeneous uterus and, therefore, it was difficult to confirm discrete fibroid margins. Endometrial thickness is 9 mm. No significant free fluid. Right ovary measures 2.8 x 1.5 x 1.6 cm, volume 3.5 mL. Left ovary measures 2.4 x 1.4 x 1.4 cm, volume 2.5 mL. Bilateral ovaries are unremarkable, although visualization is limited due to bowel gas. US/US pelvic and transvaginal IMPRESSION: 1. Endometrial thickening of 9 mm with heterogeneous appearance of endometrium. Correlation with clinical exam recommended to determine further management for this patient with abnormal uterine and vaginal bleeding. 2. Previously identified 2.5 cm and 2.6 cm fibroids are not clearly visualized, although evaluation limited due to substantially heterogeneous uterus and, therefore, it was difficult to confirm discrete fibroid margins.
== END 2023-10-18 11:19 | disposition home or self-care (01) ==
LOC: HO.US 11:18
PROVIDERS: PCP Internal Medicine; Visit Provider Obstetrics & Gynecology
DX: N93.9 Abnormal uterine and vaginal bleeding, unspecified (principal)
CPT/HCPCS: 76830; 76856

== ENCOUNTER 2023-10-31 07:30 | Outpatient (REF) | payer MEDICAID, SELFPAY | END 2023-10-31 07:31 | disposition home or self-care (01) | LOC: HO.LNP 07:30 | PROVIDERS: PCP Internal Medicine; Visit Provider Obstetrics & Gynecology | DX: Z32.02 Encounter for pregnancy test, result negative (principal); N93.9 Abnormal uterine and vaginal bleeding, unspecified | CPT/HCPCS: 58100; 81025; 88305 ==

== ENCOUNTER 2023-10-31 07:30 | Outpatient (AMB) | payer MEDICAID, SELFPAY ==
[2023-10-31 07:36] VITALS: BP 118/70; BMI 33.4
--- NOTE | 2023-10-31 07:36 | MHC.OFFVIS ---
Vital Signs 10/31/23 07:36 Height 5 ft 6 in Weight 207 lb 3.752 oz BMI 33.4 BP 118/70 Intake Visit Reasons: EMB Barrel Endshake Adjuster Required: No Information Interpreted: non-clinical & clinical Financial Assistant: Financial Assistant Present (Toma BOYD) Accompanied by: Self / Same As Patient Allergies No Known Allergies Allergy (Mild, Verified 10/31/23 07:44) NOT APPLICABLE HPI Comments Details: Presenting for EMB [facility] Medical History Asthma Family History Mother Diabetes Social History Household Members: Children Housing: Apartment Alcohol intake: never Patient Tobacco Use Status: Former Tobacco user Tobacco use type: Cigarette Years Smoked: 10 Substance Use Type: Marijuana Current occupational status: employed Current occupation: [employer] Sexual orientation: Straight/Heterosexual Gender identity: Female Review of Systems Const All systems reviewed & are unremarkable except as noted in HPI and below Reports as per HPI and Reports no additional complaints GI Reports no additional complaints Reports no additional complaints Physical Exam Vital Signs: Last Vital Signs BP 118/70 10/31/23 07:36 BMI result Body Mass Index 33.4 Office Procedures Endometrial Biopsy Details: The patient was counseled regarding the indication and benefits of endometrial sampling to rule out endometrial pathology including not limited to endometrial hyperplasia or endometrial cancer and others; The alternatives (Either do nothing vs. hysteroscopy D&C) & the risks were discussed with the patient including but not limited: pain, uterine perforation, bleeding, infection, possible injury to bladder, bowel, ureter, possible need for blood transfusion with all its possible risks. The patient verbalized understanding all questions answered and signed consent. Urine test done in the office was negative The patient was placed into the dorsal lithotomy position; a speculum was inserted in the vagina. Using aseptic technique for the procedure, the cervix was cleansed with Betadine. The anterior lip of the cervix was grasped with a single tooth tenaculum. The uterus was sounded to 7 cm with a 4 mm Pipelle was used. Tissues samples were obtained and placed in formalin, in a patient labeled container and sent to the pathology department. At the end of the procedure, there was minimal bleeding noted The patient tolerated the procedure well and was discharged in good condition with the following instructions: Nothing in the vagina until the bleeding stops. No sex until the bleeding stops, to call if any of the following occurs: fever (>100.4), flu-like symptoms, abdominal pain, heavy bleeding, four smelling vaginal discharge. The patient was instructed to schedule a Follow up appointment in 2 weeks to discuss pathology results of the biopsy and treatment options. This note was generated with a voice recognition program. Some errors may have been overlooked during the review of this note. Sometimes these errors may affect the content or meaning of a given sentence. [id number] Biopsy Results AMB Test Urine AMB Test Urine Negative Last Edit by Toma Peña CMA on 10/31/23 07:45 Assessment & Plan Assessment & Plan (1) Abnormal uterine bleeding: Code(s): N93.9 - Abnormal uterine and vaginal bleeding, unspecified Category: Medical Plan: Endometrial biopsy done, see procedure note Orders: Orders AMB HCG Urine Test Today Z32.02 - Encounter for test, result negative AMB Endometrial Biopsy Today N93.9 - Abnormal uterine and vaginal bleeding, unspecified Coding Level of Care Code Procedure Only Diagnoses Abnormal uterine bleeding N93.9 CPT Codes Endometrial Biopsy - CPT: 65543-Bfsrfsknwbz Biopsy ([id number])
== END 2023-10-31 07:58 | disposition home or self-care (01) ==
PROVIDERS: PCP Internal Medicine; Visit Provider Obstetrics & Gynecology
DX: N93.9 Abnormal uterine and vaginal bleeding, unspecified (principal); Z32.02 Encounter for pregnancy test, result negative
CPT/HCPCS: 58100

== ENCOUNTER → 2023-11-16 11:01 | Outpatient (BNV) | payer MEDICAID, SELFPAY | PROVIDERS: PCP Internal Medicine; Referring Provider Obstetrics & Gynecology; Visit Provider Internal Medicine | DX: D69.6 Thrombocytopenia, unspecified (principal) | CPT/HCPCS: 99204 ==

== ENCOUNTER 2023-12-06 07:52 | Outpatient (REF) | payer MEDICAID, SELFPAY | END 2023-12-06 07:53 | disposition home or self-care (01) | LOC: HO.LNP 07:52 | PROVIDERS: PCP Internal Medicine; Visit Provider Obstetrics & Gynecology | DX: Z12.4 Encounter for screening for malignant neoplasm of cervix (principal); R87.615 Unsatisfactory cytologic smear of cervix | CPT/HCPCS: 88175; 99212 ==

== ENCOUNTER 2023-12-06 07:52 | Outpatient (AMB) | payer MEDICAID, SELFPAY ==
[2023-12-06 07:57] VITALS: BMI 37.9
--- NOTE | 2023-12-06 07:57 | MHC.OFFVIS ---
Vital Signs 12/06/23 07:57 Height 5 ft 2 in Weight 207 lb 3.752 oz BMI 37.9 Intake Visit Reasons: EMB follow up/repeat pap Soa Integration Developer Required: No Information Interpreted: non-clinical & clinical Conservation Science Officer: Conservation Science Officer Present (Toma BOYD) Accompanied by: Self / Same As Patient Allergies No Known Allergies Allergy (Mild, Verified 12/06/23 08:04) NOT APPLICABLE Is last menstrual period known: Yes Last menstrual period: 12/05/23 HPI Comments Details: The patient is presenting for follow-up to discuss the results of her abnormal uterine bleeding workup and options of treatment. The following workup was done.: H&H= 12.9/37.6 TSH, hCG, GC and chlamydia were negative. Prolactin 54.6 FSH in the premenopausal range Endometrial biopsy pathology showed disordered proliferative endometrium with breakdown with no evidence of hyperplasia and/or malignancy. Pap smear was unsatisfactory due to insufficient squamous cellularity/HPV negative Mammogram was done in 05/23 was BI-RADS 1 Pelvic ultrasound showed the following: The uterus is anteverted and measures 10.2 x 5.5 x 7.6 cm. Previously identified 2.5 cm and 2.6 cm fibroids are not clearly visualized, although evaluation limited due to substantially heterogeneous uterus and, therefore, it was difficult to confirm discrete fibroid margins. Endometrial thickness is 9 mm. No significant free fluid. Right ovary measures 2.8 x 1.5 x 1.6 cm, volume 3.5 mL. Left ovary measures 2.4 x 1.4 x 1.4 cm, volume 2.5 mL. Bilateral ovaries are unremarkable, although visualization is limited due to bowel gas. [facility] Medical History Asthma Family History Mother Diabetes Social History Household Members: Children Housing: Apartment Alcohol intake: never Patient Tobacco Use Status: Former Tobacco user Tobacco use type: Cigarette Years Smoked: 10 Substance Use Type: Marijuana service: No Current occupational status: employed Current occupation: [employer] Sexual orientation: Straight/Heterosexual Gender identity: Female Female Reproductive History Menstrual Date of last menstrual period: 12/05/23 Review of Systems Const All systems reviewed & are unremarkable except as noted in HPI and below Reports as per HPI and Reports no additional complaints GI Reports no additional complaints Reports no additional complaints Physical Exam Vital Signs: BMI result Body Mass Index 37.9 Assessment & Plan Assessment & Plan (1) Unsatisfactory cervical Papanicolaou smear: Code(s): R87.615 - Unsatisfactory cytologic smear of cervix Category: Medical Plan: Pap smear repeated (2) Elevated prolactin level: Code(s): R79.89 - Other specified abnormal findings of blood chemistry Category: Medical Plan: Discussed with the patient the elevated prolactin, Will refer to endocrinology for further management. Instructed the patient to call our office back in case a referral appointment is not scheduled, missed or canceled so that we will assist on rescheduling another appointment, the patient verbalized understanding agreed with the plan. (3) Abnormal uterine bleeding: Code(s): N93.9 - Abnormal uterine and vaginal bleeding, unspecified Category: Medical Plan: Discussed with the patient the results of the work up done and options of treatment including Lysteda, control pills, Mirena IUD, endometrial ablation and hysterectomy. All pros, cons, risks and benefits if each option was discussed with the patient and the patient decided to go ahead with Mirena IUD so a more detailed discussion about it was conducted including mechanism of action, risks (uterine perforation, infection, injury to bladder, bowel, displacement, and others) benefits (hypo menorrhea, amenorrhea, ...). GC/CT were recent taken and the patient was instructed to schedule Mirena IUD insertion on day 1-5 of next cycle . All questions answered, the patient verbalized understanding (4) Uterine myoma: Code(s): D25.9 - Leiomyoma of uterus, unspecified Category: Medical Plan: Discussed with the patient the findings on pelvic ultrasound & the risk of myosarcoma; discussed with the patient the options of treatment including expectant management versus hysterectomy; the pros and cons, risks benefits of each approach were discussed with the patient including the fact that in cases of myosarcoma, surgical treatment can lead to early diagnosis and positively affects the prognosis; after further discussion, the patient decided to proceed with expectant management. Will repeat pelvic ultrasound periodically. Instructions given to patient to call in case any of the following occurs: pressure symptoms, abnormal uterine bleeding, pelvic pain; and to schedule a six-months pelvic ultrasound and a follow-up appointment . All questions answered, the patient verbalized understanding and agreed with the plan . Orders: Orders US pelvic and transvaginal 6 Months D25.9 - Leiomyoma of uterus, unspecified PAP Smear Today R87.615 - Unsatisfactory cytologic smear of cervix Referrals Endocrinology Referral R79.89 - Other specified abnormal findings of blood chemistry Coding Level of Care Code Est Pt Level 3 (55075) Diagnoses Unsatisfactory cervical Papanicolaou smear R87.615 Elevated prolactin level R79.89 Abnormal uterine bleeding N93.9 Uterine myoma D25.9
== END 2023-12-06 08:28 | disposition home or self-care (01) ==
PROVIDERS: PCP Internal Medicine; Referring Provider Internal Medicine; Visit Provider Obstetrics & Gynecology
DX: R87.615 Unsatisfactory cytologic smear of cervix (principal); R79.89 Other specified abnormal findings of blood chemistry; N93.9 Abnormal uterine and vaginal bleeding, unspecified; D25.9 Leiomyoma of uterus, unspecified
CPT/HCPCS: 99213

== ENCOUNTER 2023-12-07 08:57 | Outpatient (AMB) | payer MEDICAID, SELFPAY ==
--- NOTE | 2023-12-07 09:25 | A.OFFVIS_ITS ---
Intake Visit Reasons: Mirena insertion Allergies No Known Allergies Allergy (Mild, Verified 12/06/23 08:04) NOT APPLICABLE HPI Comments Details: Presenting for Mirena IUD insertion [facility] Medical History Asthma Family History Mother Diabetes Social History Household Members: Children Housing: Apartment Alcohol intake: never Patient Tobacco Use Status: Former Tobacco user Tobacco use type: Cigarette Years Smoked: 10 Substance Use Type: Marijuana service: No Current occupational status: employed Current occupation: [employer] Sexual orientation: Straight/Heterosexual Gender identity: Female Office Procedures IUD Insert/Removal Details Details: The patient is presenting for Mirena IUD insertion Urine test was done in the office and was negative; All the contraindications were excluded. The following possible complications were discussed with the patient: Intrauterine , Ectopic , Sepsis, Pelvic Infection, Irregular Bleeding and Amenorrhea, Perforation, Expulsion, Ovarian Cysts, Breast Cancer, The following adverse effects were discussed with the patient: alteration of menstrual bleeding pattern, including: unscheduled uterine bleeding decreased u terine bleeding increased scheduled uterine bleeding female genital tract bleeding ,amenorrhea , genital discharge , vulvovaginitis , breast pain , benign ovarian cyst and associated complications , dysmenorrhea , Gastrointestinal disorders abdominal/pelvic pain, headache/migraine , back pain , acne , depression Alternative options were discussed with the patient including but not limited: control pills, patch, NuvaRing, Depo-medroxyprogesterone acetate, Nexplanon, copper IUD, sterilization, vasectomy, others The procedure was explained in detail to patient , at the end patient signed the informed consent obtained. A no touch technique was used throughout the procedure. A speculum was placed into vagina and cervix was cleaned with betadine). A tenaculum was placed. A plastic sound was advanced through the external and internal os until it reached the fundus of the uterus, the depth was 8 cm. The sound was then withdrawn. The IUD was loaded in a sterile manner and advanced into position. The string was visualized and cut to 3 cm. Tenaculum site hemostatic. All instruments removed from vagina. Patient tolerated the procedure well. NO complications were noted. Patient was instructed to call for fever over 100.4, significant pain unrelieved by Motrin, IUD expulsion, heavy bleeding, or abnormal discharge. In addition, the following clinical considerations were discussed with the patient to call for removal: A stroke or heart attack ,Very severe or migraine headaches ,Unexplained fever ,Yellowing of the skin or whites of the eyes, as these may be signs of serious liver problems , or suspected , Pelvic pain or pain during sex ,HIV positive seroconversion in herself or her partner , Possible exposure to sexually transmitted infections Unusual vaginal discharge or genital sores , severe vaginal bleeding or bleeding that lasts a long time, or if she misses a menstrual period, Inability to feel Mirena's threads Counseled the patient that the IUD does not protect against STI's, recommended use of condoms for the first 7 days post insertion and explained to the patient that condoms are recommended for patients at risk for sexually transmitted infections. Informed the patient that Mirena IUD is FDA approved for 8 years for contraception for 5 years for the treatment of heavy menses Instructed the patient to schedule a Follow up appointment in 4 to 6 weeks following insertion. This note was generated with a voice recognition program. Some errors may have been overlooked during the review of this note. Sometimes these errors may affe ct the content or meaning of a given sentence. [id number] Insertion Procedure code (CPT) selection complete Office Meds Mirena 21 mcg/24 hr (up to 8 years) 52 mg intrauterine device Performing Provider: Kunal Bales MD Performing Location: [facility] [place] [facility] Documented (not given) by: Kunal Bales MD on 12/07/23 09:27 Dose Route Admin Location Dispensed Lot Number Expiration Date [facility] Program Trainer 1 device intrauterine ea Assessment & Plan Assessment & Plan (1) Encounter for insertion of Mirena IUD: Code(s): Z30.430 - Encounter for insertion of intrauterine contraceptive device Category: Medical Plan: Mirena IUD inserted, see procedure Orders: Orders AMB IUD Insertion/Removal - Practice Supplied Today Z30.430 - Encounter for insertion of intrauterine contraceptive device Medications: New Mirena (levonorgestrel) 1 device intrauterine ONCE 1 ea 0RF Mirena IUD insertion NS Z30.430 - Encounter for insertion of intrauterine contraceptive device Coding Level of Care Code Procedure Only Diagnoses Encounter for insertion of Mirena IUD Z30.430 CPT Codes Details - CPT: 61011-GPB Insertion ([id number])
== END 2023-12-07 09:28 | disposition home or self-care (01) ==
LOC: HO.HWS 08:57
PROVIDERS: PCP Internal Medicine; Referring Provider Internal Medicine; Visit Provider Obstetrics & Gynecology
DX: Z30.430 Encounter for insertion of intrauterine contraceptive device (principal)
CPT/HCPCS: 58300

== ENCOUNTER → 2023-12-07 08:57 | Outpatient (BNVA) | payer MEDICAID, SELFPAY | PROVIDERS: PCP Internal Medicine; Visit Provider Obstetrics & Gynecology | DX: Z30.430 Encounter for insertion of intrauterine contraceptive device (principal) | CPT/HCPCS: 58300 ==

== ENCOUNTER 2024-01-24 09:18 | Outpatient (AMB) | payer MEDICAID, SELFPAY ==
[2024-01-24 09:22] VITALS: BP 109/77; PULSE 86; O2SAT 97; BMI 31.0
--- NOTE | 2024-01-24 09:22 | MHC.OFFVIS ---
Vital Signs 01/24/24 09:22 Height 5 ft 6 in Weight 192 lb BMI 31.0 BP 109/77 Blood Pressure Location Rt brachial Position Sitting Pulse 86 Pulse Source Doppler Pulse Oximetry (%) 97 Oxygen Delivery Method Room Air Intake Visit Reasons: asthma Allergies No Known Allergies Allergy (Mild, Verified 12/06/23 08:04) NOT APPLICABLE HPI HPI asthma: Details: 43-year-old lady followed for underlying asthma/COPD overlap syndrome and environmental allergies.? She has been on Xolair, Advair, Spiriva, and albuterol MDI with excellent control of his symptoms. She denies any recent exacerbations. Patient has tried to titrate herself of Spiriva or Advair, however her symptoms have recurred, so she continues to require her inhaled bronchodilators together with Xolair to maintain good symptom control. [facility] Medical History Asthma Family History Mother Diabetes Social History Household Members: Children Housing: Apartment Alcohol intake: never Patient Tobacco Use Status: Former Tobacco user Tobacco use type: Cigarette Years Smoked: 10 Substance Use Type: Marijuana service: No Current occupational status: employed Current occupation: [employer] Sexual orientation: Straight/Heterosexual Gender identity: Female Review of Systems Const Denies daytime sleepiness, Denies excessive sweating, Denies fatigue, Denies fever(s), Denies lethargy, Denies malaise, Denies night sweats, Denies snoring and Denies weight loss Eyes Denies blurry vision and Denies itchy eyes ENT Denies nasal congestion, Denies post nasal drip, Denies sinus pain, Denies sinus pressure and Denies other ( Thrush) Card Denies chest pain, Denies pedal edema, Denies dyspnea, Denies orthopnea and Denies paroxysmal nocturnal dyspnea Resp Denies cough, Denies hemoptysis, Denies excessive phlegm production, Denies dyspnea, Denies snoring and Denies wheezing GI Denies abdominal pain and Denies heartburn Musc Denies myalgias, Denies arthralgias and Denies joint swelling Skin/Breast Denies rash Neuro Denies memory loss and Denies seizure-like activity Psych Denies abnormal sleep pattern, Denies anxiety and Denies memory loss Endo Denies excessive sweating, Denies fatigue and Denies heat intolerance Justin/Lymph Denies easy bruising Aller/Immun Denies itchy eyes, Denies seasonal rhinorrhea and Denies wheezing Physical Exam Vital Signs: Last Vital Signs Pulse 86 01/24/24 09:22 BP 109/77 01/24/24 09:22 Pulse Ox 97 01/24/24 09:22 Oxygen Delivery Method Room Air 01/24/24 09:22 BMI result Body Mass Index 31.0 Const General: no acute distress and alert Nutritional Appearance: not obese Orientation/consciousness: Other orientation findings ( oriented) HEENT Head: Yes atraumatic Eyes General: appearance normal, both eyes and all related structures Sclerae: sclerae normal EOM: EOMs intact bilaterally Neck Neck: Yes supple Lymphatic: no lymphadenopathy noted Resp Effort & Inspection: normal respiratory effort and no use of accessory muscles Auscultation: clear to auscultation bilaterally Cardio Rate: regular rate Rhythm: regular rhythm Heart sounds: no gallops, no murmurs and no rubs Skin General skin exam: other ( warm) Extrem General: No clubbing, No cyanosis and No edema Assessment & Plan Assessment & Plan (1) Asthma-COPD overlap syndrome: Code(s): J44.9 - Chronic obstructive pulmonary disease, unspecified Category: Medical Plan: Well controlled on current regimen of Xolair, Advair, Spiriva, and albuterol MDI. Continue current regimen. (2) Environmental allergies: Code(s): Z91.09 - Other allergy status, other than to drugs and biological substances Category: Medical Plan: Well controlled on Xolair. Continue current regimen. Coding Level of Care Code Est Pt Level 4 (33631) Diagnoses Asthma-COPD overlap syndrome J44.9 Environmental allergies Z91.09
== END 2024-01-24 09:36 | disposition home or self-care (01) ==
PROVIDERS: PCP Internal Medicine; Referring Provider Internal Medicine; Visit Provider Internal Medicine Pulmonary Disease
DX: J44.9 Chronic obstructive pulmonary disease, unspecified (principal); Z91.09 Other allergy status, other than to drugs and biological substances
CPT/HCPCS: 99214

== ENCOUNTER → 2024-01-24 09:18 | Outpatient (BNVA) | payer MEDICAID, SELFPAY | PROVIDERS: PCP Internal Medicine; Visit Provider Internal Medicine Pulmonary Disease | DX: J44.9 Chronic obstructive pulmonary disease, unspecified (principal); Z91.09 Other allergy status, other than to drugs and biological substances | CPT/HCPCS: 99212 ==

== ENCOUNTER 2024-02-28 11:01 | Outpatient (AMB) | payer MEDICAID, SELFPAY ==
--- NOTE | 2024-02-28 11:05 | MHC.OFFVIS ---
Vital Signs 02/28/24 11:05 Height 5 ft 6 in Intake Visit Reasons: iud check Allergies No Known Allergies Allergy (Mild, Verified 12/06/23 08:04) NOT APPLICABLE HPI Comments Details: The patient is presenting for IUD check after 1 st period following IUD insertion. The patient has no complaints periods are normal, not painful, and flow is normal. COUNTS INCLUDE 234 BEDS AT THE [facility] Medical History Asthma Family History Mother Diabetes Social History Household Members: Children Housing: Apartment Alcohol intake: never Patient Tobacco Use Status: Former Tobacco user Tobacco use type: Cigarette Years Smoked: 10 Substance Use Type: Marijuana service: No Current occupational status: employed Current occupation: [employer] Sexual orientation: Straight/Heterosexual Gender identity: Female Female Reproductive History Menstrual control method: progestin IUCD Review of Systems Const All systems reviewed & are unremarkable except as noted in HPI and below Physical Exam General: Yes no CVA tenderness External Female Exam: normal external appearance and normal appearance of the urethra Speculum Exam - Vagina: normal appearance of the vagina, normal palpation, no lesions and no masses Speculum Exam - Cervix: normal appearance of the cervix, normal palpation, no lesions, no masses, nontender and Other cervical findings present (IUD string in place) Bimanual exam- vagina & uterus: normal bimanual exam, normal palpation, uterine size normal, normal palpation, uterine shape normal, No Cervical tenderness present and non-tender Bimanual Exam- Adnexa, other: normal adnexae Back/Spine/Pelvis Back: no CVA tenderness Results AMB Test Urine AMB Test Urine Negative Last Edit by Renetta Argueta LPN on 02/28/24 11:11 Results Reviewed Results Reviewed: Laboratory Last Values [facility] Clinic Negative 02/28/24 11:11 Assessment & Plan Assessment & Plan (1) IUD check up: Code(s): Z30.431 - Encounter for routine checking of intrauterine contraceptive device Category: Medical Plan: UPT done in the office was negative. Discussed with the patient the finding on physical exam, IUD string in place, the patient was reassured. Instructions given to patient to call in case of temperature above 100.4, severe cramping/pelvic pain, abnormal discharge or abnormal uterine bleeding or if she misses her menstrual cycle. Otherwise follow-up at her annual exam appointment. All questions answered, the patient verbalized understanding. Coding Level of Care Code Est Pt Level 3 (36502) Diagnoses IUD check up Z30.298
== END 2024-02-28 11:35 | disposition home or self-care (01) ==
LOC: HO.HWS 11:02
PROVIDERS: PCP Internal Medicine; Visit Provider Obstetrics & Gynecology
DX: Z30.431 Encounter for routine checking of intrauterine contraceptive device (principal)
CPT/HCPCS: 99213

== ENCOUNTER → 2024-02-28 11:01 | Outpatient (BNVA) | payer MEDICAID, SELFPAY | PROVIDERS: PCP Internal Medicine; Visit Provider Obstetrics & Gynecology | DX: Z30.431 Encounter for routine checking of intrauterine contraceptive device (principal) | CPT/HCPCS: 99212 ==

== ENCOUNTER 2024-10-02 10:23 | Outpatient (AMB) | payer MEDICAID, SELFPAY ==
--- NOTE | 2024-10-02 10:28 | MHC.OFFVIS ---
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 Pt states she is getting some discoloration/bruising recently. States she is always standing. but started to worsen about a month ago. 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 Complaints include pain in her calves/posterior ankle area, swelling of lower extremities, cramping, fatigue, and heaviness of the lower extremities. It has been affecting their daily activities including working, walking, and standing. It is noted in bilateral legs, slightly more in the right. She is a former smoker, quitting over 4y ago. She is not a diabetic. There is no hx of blood clots or clotting disorders in her family. She does stand all day for work. Patient denies any previous venous surgery or injections. Patient denies any history of DVT/ PE. Patient denies any history of phlebitis. Trial of compression includes - compression socks and elevation, which only help a little They now present for vascular evaluation regarding their varicose veins. [facility] [place] [place] Medical History Asthma Family History Mother Diabetes Social History Household Members: Children Housing: Apartment Alcohol intake: never Patient Tobacco Use Status: Former Tobacco user Tobacco use type: Cigarette Years Smoked: 10 Substance Use Type: Marijuana service: No Current occupational status: employed Current occupation: [employer] Sexual orientation: Straight/Heterosexual Gender identity: Female Review of Systems Const Reports as per HPI and Denies weakness ENT Reports Normal hearing present and Denies dizziness Card Reports as per HPI, Denies chest pain, Denies chest pain at rest, Denies chest pain with activity, Denies dyspnea and Denies dyspnea on exertion Resp Reports as per HPI, Denies cough, Denies dyspnea and Denies dyspnea on exertion GI Reports as per HPI, Denies abdominal pain, Denies nausea and Denies vomiting Musc Denies numbness Skin/Breast Reports as per HPI, Denies erythema and Denies wounds Neuro Reports Normal hearing present, Denies dizziness, Denies numbness, Denies Sensory deficit (Neuro) and Denies weakness Psych Reports no additional complaints Endo Reports no additional complaints Physical Exam Vital Signs: BMI result Body Mass Index 29.7 Const General: healthy appearing and no acute distress Orientation/consciousness: patient oriented x3 HEENT Head: Yes normal to inspection Ears: hearing grossly normal bilaterally Mouth: Normal oral and palatal mucosa present Resp Effort & Inspection: normal respiratory effort and able to speak in complete sentences Auscultation: clear to auscultation bilaterally Cardio Jugular venous distension: no JVD Rate: regular rate Rhythm: regular rhythm Heart sounds: S1 normal heart sound present and S2 normal heart sound present Bruits: no abdominal aortic bruits, no carotid bruits, no femoral bruits and no renal bruits Peripheral pulses: Peripheral pulses 2+ throughout GI Inspection: Yes normal to inspection Palpation (GI): No Abdominal aortic bruit present Skin General skin exam: no rashes or lesions noted Wounds: no wounds Hair: normal Neuro General: patient oriented x3 Cranial nerves: Yes Normal hearing present Cognition (Neuro): normal cognition Gait exam (Neuro): Normal gait present Motor exam (neuro): 5/5 motor strength present throughout Sensory Exam: No Sensory deficit (Neuro) Extrem Other: Bilateral lower extremities: +1/2 pitting edema noted. Deep erythematous discoloration noted around both ankles. Palpable DP pulses noted. CEAP: C - 4 E - primary A - superficial P - reflux General: Yes normal to inspection, Yes full ROM, Yes capillary refill normal and Yes normal gait Assessment & Plan Assessment & Plan (1) Varicose veins of both lower extremities with inflammation: Code(s): I83.11 - Varicose veins of right lower extremity with inflammation; I83.12 - Varicose veins of left lower extremity with inflammation Category: Medical Plan: Christina is presenting today on a referral from her PCP for ongoing and worsening bilateral lower extremity swelling, discomfort/pain, and discoloration. In short, the patient has evidence of venous insufficiency. I have discussed the pathophysiology with the patient. In addition I have provided informational material regarding venous disease to the patient. We have discussed conservative measures including compression, elevation, and exercise. We discussed continued use of the compression socks, particularly when working/standing for long periods of time. I have taken the liberty of ordering venous insufficiency testing with the patient. They will follow up with me after testing. The patient had an opportunity to ask questions regarding the treatment plan. All questions were answered. Imaging studies, laboratory studies and physical exam results were discussed and reviewed in detail. No major barriers to understanding were identified. The patient expressed understanding and agreement with the above treatment plan. The patient is aware they should contact our office by phone for worsening of the current condition or the appearance of new symptoms. Thank you for allowing me to participate in the vascular care of this patient. If you have any questions or concerns regarding the treatment for the above condition please do not hesitate to contact me. The office telephone contact is [phone]. This note is constructed using voice recognition software. While every effort has been made to ensure accuracy, traffic circuit engineer errors may have been included. Thank you for allowing me to participate in the care of your patient. Yours sincerely, FÉLIX Baig Orders: Orders US venous duplex LE BI 1 Week I83.11 - Varicose veins of right lower extremity with inflammation, I83.12 - Varicose veins of left lower extremity with inflammation Coding Level of Care Code New Pt Level 4 (07576) Diagnoses Varicose veins of both lower extremities with inflammation I83.11; I83.12
[2024-10-02 10:29] VITALS: BMI 29.7
--- OUTSIDE RECORDS SUMMARY | 2024-10-02 12:13 | XMS_ITS | Encounter Summary ---
Author Organization [employer] Address [address] [place] [address] Care Team Providers Care Shipping Services Sales Representative Name Role Phone Perlita Garza MD Primary Care Provider [phone] Reason for Visit * Reason Comments Med Refill Encounter Details Date Type Department Care Team ([facility] st Contact Info) Description 06/05/2023 Refill [facility] [address] [place] [address] Alessio Rasheed MD [address] [place] [address] Acute otitis externa of right ear, unspecified type Social History Tobacco Use Types Packs/Day Years Used Date Smoking Tobacco: Former Cigarettes Smokeless Tobacco: Never Housing Stability Answer Date Recorded What is your housing situation today? I have emani june 06/07/[address] you li ve. Do you have problems with any of the following? None of the above 06/07/2023 Food Insecurity Answer Date Recorded Within the past 12 months, y ou worried that your food would run out before you got money to buy more: Never True 06/07/2023 Within the past 12 months,th e food you bought just didn't last and you didn't have enough money to get more: Never True 11/2023 Transportation Answer Date Recorded In the past 12 months, has l ack of transportation kept you from medical appts, meetings, work or from getting things needed for daily living? No 06/07/2023 Utilities Answer Date Recorded In the past 12 months, has t he electric, gas, oil or water company threatened to shut off services in your home? No 06/07/2023 Comments Unknown Sex and Gender Information Value Date Recorded Sex Assigned at Female 02/27/2022 10:34 AM EDT Legal Sex Female 10:34 AM EDT Gender Identity Female 02/27/2022 10:34 AM EDT Sexual Orientation Straight 02/27/2022 10 :34 AM EDT documented as of this encounter Miscellaneous Notes * Telephone Encounter - Perlita Garza MD - 06/06/2023 8:11 PM EST Please have Ms Gonzalez schedule an appointment. documented in this encounter Plan of Treatment Upcoming Encounters Date Type Department Care Team (Late st Contact Info) Description 10/23/2024 9:45 AM EDT Office Visit [facility] MEDICINE [address] [place] [address] Dominga Simons CNM [address] [place] [address] 10/23/2024 10:45 AM EDT Office Visit [facility] CHC MED & PEDS [address] [place] [address] Perlita Garza MD [address] [place] [address] documented as of this encounter Visit Diagnoses Diagnosis Acute otitis externa of right ear, unspecified type documented in this encounter Care Teams Shipping Services Sales Representative Relationship Specialty Start Date End Date Perlita Garza MD [address] [place] [address] PCP - General Internal Medicine 03/04/18 documented as of this encounter
== END 2024-10-02 11:25 | disposition home or self-care (01) ==
LOC: HO.HVS 10:24
PROVIDERS: PCP Internal Medicine; Visit Provider Physician Assistant Surgical
DX: I83.11 Varicose veins of right lower extremity with inflammation (principal); I83.12 Varicose veins of left lower extremity with inflammation
CPT/HCPCS: 99204

== ENCOUNTER → 2024-10-02 10:23 | Outpatient (BNVA) | payer MEDICAID, SELFPAY | PROVIDERS: PCP Internal Medicine; Visit Provider Physician Assistant Surgical | DX: I83.11 Varicose veins of right lower extremity with inflammation (principal); I83.12 Varicose veins of left lower extremity with inflammation | CPT/HCPCS: 99202 ==

== ENCOUNTER 2024-10-06 15:18 | Outpatient (REF) | payer MEDICAID, SELFPAY ==
--- NOTE | ~2024-10-06 | US_ITS ---
EXAMINATION: US PELVIS CLINICAL INFORMATION: Uterine leiomyoma COMPARISON: October 18 2023 TECHNIQUE: Ultrasound of the pelvis is performed using both transabdominal and transvaginal transducers along with Doppler. Transvaginal imaging is performed due to inadequate visualization transabdominally. FINDINGS: Uterus: The uterus measures 11.2 x 7.0 x 8.8 cm cm. It has a coarse echotexture. Nabothian cysts are present in the cervix. The endometrial stripe is 14 mm. There is a linear echogenic shadowing device within the uterus consistent with an IUD located 18 mm from the apex region of the endometrial canal. The uterus is smooth in contour and has normal myometrial echogenicity. No visible fibroid. Adnexa: Both ovaries are visualized. There is normal color flow to the adnexa. There is no ovarian torsion. There is no pelvic ascites or fluid collection. Right ovary measures 3.8 x 2.1 x 3.8 cm. cm. There is an anechoic 2.0 cm cyst with posterior acoustic enhancement most consistent with a maturing follicle. Left ovary measures 5.9 x 3.7 x 5.6 cm. cm. There is a complex cyst measuring 5.4 x 3.1 x 5.0 cm. There is a peripheral secondary cyst protruding into the lumen of the aforementioned cyst with a 2 cm diameter. US/US pelvic and transvaginal IMPRESSION: Left ovarian cyst measuring 5.4 cm long axis with a daughter cyst. This favors a nonaggressive etiology of this cyst, however recommend follow-up ultrasound in 6-12 weeks. IUD is in the mid to upper endometrial canal, 18 mm below the cephalad margin of the canal. The uterus has an echogenic coarsened echotexture without well-defined uterine leiomyomas which could indicate underlying adenomyosis. Endometrial stripe thickness is at the upper limits of normal. Electronically signed by: Kam Ingram MD 10/06/2024 04:30 PM EDT
--- OUTSIDE RECORDS SUMMARY | 2024-10-06 17:02 | XMS_ITS | Encounter Summary ---
Author Organization [employer] Address [address] [place] [address] Care Team Providers Care Car Rental Manager Name Role Phone Perlita Garza MD Primary Care Provider [phone] Reason for Visit * Reason Comments Med Refill Encounter Details Date Type Department Care Team ([facility] st Contact Info) Description 06/05/2023 Refill [facility] W[facility] [address] [place] [address] Alessio Rasheed MD [address] [place] [address] Acute otitis externa of right ear, unspecified [...] Description 10/23/2024 9:45 AM EDT Office Visit [facility] MEDICINE [address] [place] [address] Dominga Simons CNM [address] [place] [address] 10/23/2024 10:45 AM EDT Office Visit [facility] MED & PEDS [address] [place] [address] Perlita Garza MD [address] [place] [address] documented as of this encounter Visit Diagnoses Diagnosis Acute otitis externa of right ear, unspecified type documented in this encounter Care Teams Car Rental Manager Relationship Specialty Start Date End Date Perlita Garza MD [address] [place] [address] PCP - General Internal Medicine 03/04/18 documented as of this encounter
== END 2024-10-06 15:19 | disposition home or self-care (01) ==
LOC: HO.HMGCX 15:18
PROVIDERS: PCP Internal Medicine; Visit Provider Obstetrics & Gynecology
DX: D25.9 Leiomyoma of uterus, unspecified (principal)
CPT/HCPCS: 76830; 76856

== ENCOUNTER → 2024-10-06 15:21 | Outpatient (BNV) | payer MEDICAID, SELFPAY | PROVIDERS: PCP Internal Medicine; Visit Provider Radiology Diagnostic Radiology | DX: N83.292 Other ovarian cyst, left side (principal); D25.9 Leiomyoma of uterus, unspecified | CPT/HCPCS: 76830; 76856 ==

== ENCOUNTER 2024-10-07 14:54 | Outpatient (AMB) | payer MEDICAID, SELFPAY ==
[2024-10-07 14:56] VITALS: BP 128/77; BMI 29.7
--- NOTE | 2024-10-07 14:56 | A.OFFVIS_ITS ---
Vital Signs 10/07/24 14:56 Height 5 ft 6 in Weight 184 lb BMI 29.7 BP 128/77 Intake Visit Reasons: ultrasound /IUD removal and insertion Allergies No Known Allergies Allergy (Mild, Verified 10/02/24 10:31) NOT APPLICABLE HPI Comments Details: Presenting for ultrasound follow-up. Complaining of irregular menstrual cycles over the last few weeks Pelvic Ultrasound done showed the following: Uterus: The uterus measures 11.2 x 7.0 x 8.8 cm cm. It has a coarse echotexture. Nabothian cysts are present in the cervix. The endometrial stripe is 14 mm. There is a linear echogenic shadowing device within the uterus consistent with an IUD located 18 mm from the apex region of the endometrial canal. The uterus is smooth in contour and has normal myometrial echogenicity. No visible fibroid. Adnexa: Both ovaries are visualized. There is normal color flow to the adnexa. There is no ovarian torsion. There is no pelvic ascites or fluid collection. Right ovary measures 3.8 x 2.1 x 3.8 cm. cm. There is an anechoic 2.0 cm cyst with posterior acoustic enhancement most consistent with a maturing follicle. Left ovary measures 5.9 x 3.7 x 5.6 cm. cm. There is a complex cyst measuring 5.4 x 3.1 x 5.0 cm. There is a peripheral secondary cyst protruding into the lumen of the aforementioned cyst with a 2 cm diameter. Last co testing was in 12/21 was negative Last mammogram was in 05/23 was BI-RADS 1 [facility] Medical History Asthma Family History Mother Diabetes Social History Household Members: Children Housing: Apartment Alcohol intake: never Patient Tobacco Use Status: Former Tobacco user Tobacco use type: Cigarette Years Smoked: 10 Substance Use Type: Marijuana service: No Current occupational status: employed Current occupation: [employer] Sexual orientation: Straight/Heterosexual Gender identity: Female Review of Systems Const All systems reviewed & are unremarkable except as noted in HPI and below Physical Exam Vital Signs: Last Vital Signs BP 128/77 10/07/24 14:56 BMI result Body Mass Index 29.7 General: Yes no CVA tenderness External Female Exam: normal external appearance and normal appearance of the urethra Speculum Exam - Vagina: normal appearance of the vagina, normal palpation, no lesions and no masses Speculum Exam - Cervix: normal appearance of the cervix, normal palpation, no lesions, no masses, nontender and Other cervical findings present (IUD string in place) Bimanual exam- vagina & uterus: normal bimanual exam, normal palpation, uterine size normal, normal palpation, uterine shape normal, No Cervical tenderness present and non-tender Bimanual Exam- Adnexa, other: normal adnexae Back/Spine/Pelvis Back: no CVA tenderness Office Procedures Endometrial Biopsy Details: The patient was counseled regarding the indication and benefits of endometrial sampling to rule out endometrial pathology including not limited to endometrial hyperplasia or endometrial cancer and others; The alternatives (Either do nothing vs. hysteroscopy D&C) & the risks were discussed with the patient including but not limited: pain, uterine perforation, bleeding, infection, possible injury to bladder, bowel, ureter, possible need for blood transfusion with all its possible risks. The patient verbalized understanding all questions answered and signed consent. Urine test done in the office was negative The patient was placed into the dorsal lithotomy position; a speculum was inserted in the vagina. Using aseptic technique for the procedure, the cervix was cleansed with Betadine. The anterior lip of the cervix was grasped with a single tooth tenaculum. The uterus was sounded to 7 cm with a 4 mm Pipelle was used. Tissues samples w ere obtained and placed in formalin, in a patient labeled container and sent to the pathology department. At the end of the procedure, there was minimal bleeding noted The patient tolerated the procedure well and was discharged in good condition with the following instructions: Nothing in the vagina until the bleeding stops. No sex until the bleeding stops, to call if any of the following occurs: fever (>100.4), flu-like symptoms, abdominal pain, heavy bleeding, four smelling vaginal discharge. The patient was instructed to schedule a Follow up appointment in 2 weeks to discuss pathology results of the biopsy and treatment options. This note was generated with a voice recognition program. Some errors may have been overlooked during the review of this note. Sometimes these errors may af fect the content or meaning of a given sentence. 50945-Ahaelkjegel Biopsy IUD Insert/Removal Details Additional procedure code (CPT) needed IUD Insert/Removal Details Details: The patient is presenting for IUD removal and IUD reinsertion. Her last menstrual period was within the last 5 days, Urine test was done in the office and was negative; All the contraindications were excluded. The following possible complications were discussed with the patient: Intrauterine , Ectopic , Sepsis, Pelvic Infection, Irregular Bleeding and Amenorrhea, Perforation, Expulsion, Ovarian Cysts, Breast Cancer. The following adverse effects were discussed with the patient: alteration of menstrual bleeding pattern, including: unscheduled uterine bleeding decreased uterine bleeding increased scheduled uterine bleeding female genital tract bleeding ,amenorrhea , genital discharge , vulvovaginitis , breast pain , benign ovarian cyst and associated complications , dysmenorrhea , Gastrointestinal disorders abdominal/pelvic pain, headache/migraine , back pain , acne , depression Alternative options were discussed with the patient including but not limited: control pills, patch, NuvaRing, Depo-medroxyprogesterone acetate, Nexplanon, copper IUD, sterilization, vasectomy, others The procedure was explained in detail to patient , at the end patient signed the informed consent obtained. Alternative options were discussed with the patient The patient signed the consent and agreed with the plan; all questions answered. Urine test was done in the office and was negative Preop dx: Malpositioned IUD Op: IUD removal and Mirena insertion Post op dx: same EBL= 10 cc Procedure: The patient was put in the dorsal lithotomy position a speculum was inserted in the vagina the IUD thread identified. Using a Nkechi clamp the thread was grasped and the IUD pulled out with no complications. A no touch technique was used throughout the procedure. A speculum was placed into vagina and cervix was cleaned with betadine). A tenaculum was placed. A plastic sound was advanced through the external and internal os until it reached the fundus of the uterus, the depth was 8 cm. The sound was then withdrawn. The IUD was loaded in a sterile manner and advanced into position. The string was visualized and cut to 3 cm. Tenaculum site hemostatic. All instruments removed from vagina. Patient tolerated the procedure well. NO complications were noted. Patient was instructed to call for fever over 100.4, significant pain unrelieved by Motrin, IUD expulsion, heavy bleeding, or abnormal discharge. In addition, the following clinical considerations were discussed with the patient to call for removal: A stroke or heart attack ,Very severe or migraine headaches ,Unexplained fever ,Yellowing of the skin or whites of the eyes, as these may be signs of serious liver problems , or suspected , Pelvic pain or pain during sex ,HIV positive seroconversion in herself or her partner , Possible exposure to sexually transmitted infections Unusual vaginal discharge or genital sores , severe vaginal bleeding or bleeding that lasts a long time, or if she misses a menstrual period, Inability to feel Mirena's threads Counseled the patient that the IUD does not protect against STI's, recommended use of condoms for the first 7 days post insertion and explained to the patient that condoms are recommended for patients at risk for sexually transmitted infections. Follow up appointment made for 4 weeks following insertion. Date of removal in no more than five years for DUB treatment and 8 years for contraception from today?s date was d/w patient. This note was generated with a voice recognition program. Some errors may have been overlooked during the review of this note. Sometimes these errors may affect the content or meaning of a given sentence. 80916-EMI Insertion 81953-SQM Removal Procedure code (CPT) selection complete Office Meds Kyleena 17.5 mcg/24 hr (up to 5 years) 19.5 mg intrauterine device Performing Provider: Kunal Bales MD Performing Location: [facility] Documented (not given) on 10/07/24 01:00 Reason Not Given: No Longer Necessary Mirena 21 mcg/24 hr (up to 8 years) 52 mg intrauterine device Performing Provider: Kunal Bales MD Performing Location: [facility] Documented (not given) by: Kunal Bales MD on 10/07/24 15:39 Dose Route Admin Location Dispensed Lot Number Expiration Date N[employer] [address] Maint[employer] 1 device intrauterine ea Results AMB Test Urine AMB Test Urine Negative Last Edit by Toma Peña CMA on 15:05 Results Reviewed Results Reviewed: Laboratory Last Values [facility] Negative 10/07/24 15:04 Assessment & Plan Assessment & Plan (1) Uterine myoma: Code(s): D25.9 - Leiomyoma of uterus, unspecified Category: Medical Plan: Discussed with the patient the finding on ultrasound showing no myomas (2) Complex ovarian cyst: Code(s): N83.299 - Other ovarian cyst, unspecified side Category: Medical Plan: Discussed with the patient the complex ovarian cyst by ultrasound. Discussed with the patient the Ultrasound findings, the main limitation of transvaginal ultrasonography alone as a diagnostic tool to distinguish benign from malignant masses relates to its lack of specificity and low positive predictive value for cancer. The differential diagnosis discussed with the patient includes the following but not limited to: benign and malignant gynecological and non-gynecological causes. Laboratory evaluation include UPT and GC/CT , serum tumor marker CA 125 . Discussed with the patient's CA 125 sensitivity, specificity, false-positive false-negative raising detecting ovarian cancer Discussed with the patient options of treatment , in case CA 125 is not elevated, including laparoscopy ovarian cystectomy/oophorectomy vs. expectant management with repeat US in repeating pelvic US in 6-12 weeks from previous US. If the ovarian complex cyst is persistent larger and / or more complex looking, or higher CA 125 will refer to gynecologic Oncology. All pros, cons, risks and benefits of each approach were discussed with the patient including but not limited to a delay in the diagnosis and treatment of ovarian cancer affecting the prognosis; The patient decided to go ahead with expectant management. Instructions given the patient to schedule a 3 months follow-up ultrasound appointment. All questions were answered & the patient verbalized understanding and agreed with the plan. (3) Malpositioned IUD: Code(s): T83.32XA - Displacement of intrauterine contraceptive device, initial encounter Category: Medical Plan: Discussed with the patient the results of ultrasound showing a malpositioned IUD, recommended IUD removal/reinsertion (4) Abnormal uterine bleeding: Code(s): N93.9 - Abnormal uterine and vaginal bleeding, unspecified Category: Medical Plan: GC and chlamydia taken CBC, TSH, HCG ordered. Discussed with the patient the different causes of abnormal bleeding including thyroid disorders, uterine and ovarian pathology, endometrial hyperplasia, carcinoma and other potential causes. Discussed with the patient the work up including CBC (to r/o anemia), TSH, endometrial biopsy to r/o endometrial pathology. EMB done, see procedure All questions answered and the patient verbalized understanding. Instructed the patient to schedule follow-up appointment 2 weeks Orders: Orders AMB HCG Urine Test Today Z32.02 - Encounter for test, result negative HCG Quantitative Today N93.9 - Abnormal uterine and vaginal bleeding, unspecified US pelvic and transvaginal 3 Months N83.299 - Other ovarian cyst, unspecified side MM screening mammo BI Today Z12.31 - Encounter for screening mammogram for malignant neoplasm of breast AMB IUD Insertion/Removal - Practice Supplied Today Z30.433 - Encounter for removal and reinsertion of intrauterine contraceptive device CT NG by PCR Today N93.9 - Abnormal uterine and vaginal bleeding, unspecified, T83.32XA - Displacement of intrauterine contraceptive device, initial encounter AMB IUD Insertion/Removal - Practice Supplied Today Z30.433 - Encounter for removal and reinsertion of intrauterine contraceptive device Complete Blood Count no Diff Today N93.9 - Abnormal uterine and vaginal bleeding, unspecified TSH reflex Free T4 Today N93.9 - Abnormal uterine and vaginal bleeding, unspecified CA-125 Today N83.299 - Other ovarian cyst, unspecified side AMB Endometrial Biopsy Today N93.9 - Abnormal uterine and vaginal bleeding, unspecified Surgical Today N93.9 - Abnormal uterine and vaginal bleeding, unspecified, T83.32XA - Displacement of intrauterine contraceptive device, initial encounter Medications: New Mirena (levonorgestrel) 1 device intrauterine ONCE 1 ea 0RF IUD malpositioned NS Z30.433 - Encounter for removal and reinsertion of intrauterine contraceptive device Coding Level of Care Code Est Pt Level 3 (74961) Procedure Only Diagnoses Uterine myoma D25.9 Complex ovarian cyst N83.299 Malpositioned IUD T83.32XA Abnormal uterine bleeding N93.9 CPT Codes Endometrial Biopsy - CPT: 82870-Mmrixkcbypb Biopsy ([id number]) Details - CPT: 58827-KMQ Insertion ([id number]) Details - CPT: 54978-EWK Removal ([id number])
--- OUTSIDE RECORDS SUMMARY | 2024-10-07 17:58 | XMS_ITS | Encounter Summary ---
Author Organization [email or web address] Address [address] [facility] [address] [place] [address] Care Team Providers Care Radio Frequency Design Engineer Name Role Phone Perlita Garza MD Primary Care Provider [phone] Encounter Details Date Type Department Care Team (Late st Contact Info) Description 10/07/2024 Orders Only GENERIC EXTERNAL DATA DEPARTMENT Provider, Generic External Data Social History Tobacco Use Types Packs/Day Years Used Date Smoking Tobacco: Former Smokeless Tobacco: Never Alcohol Use Standard Drinks/Week Comments Never 0 (1 standard drink = 0.6 oz pur e alcohol) Depression Answer Date Recorded Patient Health Questionnaire-9 Score 0 07/26/2023 Patient Health Questionnaire-9 Score 0 07/26/2023 Last PHQ-9: Questionnaire Data Not on file 0 07/26/2023 Housing Stability Answer Date Recorded What is your housing situation today? I have emani slade 07/18/[address] you li ve. Do you have problems with any of the following? None of the above 07/18/2024 Food Insecurity Answer Date Recorded Within the past 12 months, y ou worried that your food would run out before you got money to buy more: Never True 07/18/2024 Within the past 12 months,th e food you bought just didn't last and you didn't have enough money to get more: Never True Transportation Answer Date Recorded In the past 12 months, has l ack of transportation kept you from medical appts, meetings, work or from getting things needed for daily living? No 07/18/2024 Utilities Answer Date Recorded In the past 12 months, has t he electric, gas, oil or water [employer] threatened to shut off services in your home? No 07/18/2024 Depression Answer Date Recorded Patient Health Questionnaire-2 Score 0 07/26/2023 Internet Access Answer Date Recorded Internet Access Q1 Yes 07/18/2024 Internet Access Q2 Not on file 07/18/2024 Comments No Sex and Gender Information Value Date Recorded Sex Assigned at Female 02/27/2022 10:34 AM EDT Legal Sex Female 10:34 AM EDT Gender Identity Female 02/27/2022 10:34 AM EDT Sexual Orientation Straight 02/27/2022 10 :34 AM EDT documented as of this encounter Plan of Treatment Upcoming Encounters Date Type Department Care Team (Late st Contact Info) Description 10/23/2024 9:45 AM EDT Office Visit [facility] [address] [place] [address] Dominga Simons CNM [address] [place] [address] 10/23/2024 10:45 AM EDT Office Visit [facility] [address] [place], [place] [phone] Perlita Garza MD [address] [place], [place] [phone] documented as of this encounter Procedures Procedure Name Priority Date/Time Associated Diagnosis Comments TSH W/REFLEX TO FT4 Routine 10/07/2024 3 :39 PM EDT CBC Routine 10/07/2024 3:39 PM EDT HCG, TOTAL, QN Routine 10/07/2024 3:39 PM EDT documented in this encounter Results * hCG, Total, Quantitative (10/07/2024 3:39 PM EDT) HCG Quantitative <2 mIU/mL [facility] Comment:Weeks post LMP Appro ximate hCG(Last Menstrual Period) Range (mIU/ml)3 - 4 weeks 9 - 1304 - 5 weeks 75 - 2,6005 - 6 weeks 850 - 20,8006 - 7 weeks 4000 - 100,2007 - 12 weeks 11,500 - 289,71491 - 16 weeks 18,300 - 137,15922 - 29 weeks (2nd trimester) 1,400 - 53,95529 - 41 weeks (3rd trimester) 940 - 60,000The Dalal B- hCG assay is used for the early detection ofpregnancy; it cannot be used to diagnose any conditionunrelated to . If a B-hCG level is not supportedby the clinical evidence, results should be confirmed by analternative method (qualitative urine hCG, for example). 10/07/2024 3:39 PM EDT 10/07/2024 3:39 PM EDT Generic External Data Provider LAB BLOOD ORDERAB LES Final Result Performing Organization Address [facility]/ZIP Co de Phone Number [facility] [address] [place] [address] [phone] * TSH with Reflex to Free T4 (10/07/2024 3:39 PM EDT) TSH reflex Free T4 2.34 0.32 - 4.0 uIU/mL [facility] 10/07/2024 3:39 PM EDT 10/07/2024 3:39 PM EDT Generic External Data Provider LAB BLOOD ORDERAB LES Final Result Performing Organization Address [facility]/ZIP Co de Phone Number [facility] [address] [place] [phone] * (ABNORMAL) CBC (10/07/2024 3:39 PM EDT) White Blood Count 6.5 4.8 - 10.8 X10*3/uL [facility] Red Blood Count 4.64 4.20 - 5.50 X10*6/uL [facility] Hemoglobin 11.8(L) 12.0 - 16.0 g/dl [facility] Hematocrit 36.3(L) 37.0 - 47.0 % [facility] Mean Corpuscular Volume 78.2(L) 80.0 - 98.0 fL [facility] Mean Corpuscular Hemoglobin 25.4(L) 27.0 - 33.0 pg [facility] Mean Corpuscular HGB Conc 32.5 31.0 - 35.0 g/dl [facility] Red Cell Distribution Width 13.7 11.0 - 16.0 % [facility] Platelet Count 161 160 - 400 X10*3/uL [facility] Mean Platelet Volume 11.0 9.4 - 12.3 fL [facility] NRBC Pct Auto 0.0 0.0 - 0.2 /100WBC [facility] NRBC Abs Auto 0.000 0.0 - 0.012 X10*3/uL [facility] 10/07/2024 3:39 PM EDT 10/07/2024 3:39 PM EDT us Generic External Data Provider LAB BLOOD ORDERAB LES Final Result [facility] [address] [place] [phone] [phone] documented in this encounter Visit Diagnoses Not on filedocumented in this encounter Additional Health Concerns Assessment Noted Time PHQ-9 Depression Total Score: 0 07/26/19 24 1:55 PM EDT documented as of this encounter Care Teams Radio Frequency Design Engineer Relationship Specialty Start Date End Date Perlita Garza MD [address] [place] [phone] PCP - General Internal Medicine 03/04/18 documented as of this encounter
== END 2024-10-07 15:22 | disposition home or self-care (01) ==
LOC: HO.HWS 14:54
PROVIDERS: PCP Internal Medicine; Visit Provider Obstetrics & Gynecology
DX: D25.9 Leiomyoma of uterus, unspecified (principal); N83.291 Other ovarian cyst, right side; N83.292 Other ovarian cyst, left side; N93.9 Abnormal uterine and vaginal bleeding, unspecified; T83.32XA Displacement of intrauterine contraceptive device, initial encounter; Z30.433 Encounter for removal and reinsertion of intrauterine contraceptive device; Z32.02 Encounter for pregnancy test, result negative
CPT/HCPCS: 58100; 58300; 58301; 99213

== ENCOUNTER 2024-10-07 14:54 | Outpatient (REF) | payer MEDICAID, SELFPAY ==
[2024-10-07 15:47] LABS: Hematocrit 36.3 % (37.0-47.0); Hemoglobin 11.8 g/dl (12.0-16.0); Mean Corpuscular HGB Conc 32.5 g/dl (31.0-35.0); Mean Corpuscular Hemoglobin 25.4 pg (27.0-33.0); Mean Corpuscular Volume 78.2 fL (80.0-98.0); Platelet Count 161 X10*3/uL (160-400); Red Blood Count 4.64 X10*6/uL (4.20-5.50); Red Cell Distribution Width 13.7 % (11.0-16.0); White Blood Count 6.5 X10*3/uL (4.8-10.8)
[2024-10-07 16:32] LABS: HCG Quantitative < 2 mIU/mL; TSH reflex Free T4 2.34 uIU/mL (0.32-4.0)
[2024-10-08 08:48] LABS: CA-125 10 U/mL (<35)
== END 2024-10-07 14:55 | disposition home or self-care (01) ==
LOC: HO.LAB 14:54
PROVIDERS: PCP Internal Medicine; Visit Provider Obstetrics & Gynecology
DX: Z30.433 Encounter for removal and reinsertion of intrauterine contraceptive device (principal); T83.32XA Displacement of intrauterine contraceptive device, initial encounter; N93.9 Abnormal uterine and vaginal bleeding, unspecified; N83.299 Other ovarian cyst, unspecified side
CPT/HCPCS: 36415; 58100; 58300; 58301; 81025; 84443; 84702; 85027; 86304; 99212; J7298

== ENCOUNTER 2024-10-07 15:27 | Outpatient (REF) | payer MEDICAID, SELFPAY ==
[2024-10-08 03:59] LABS: CT PCR NOT DETECTED (Not Detect.); NG PCR NOT DETECTED (Not Detect.)
== END 2024-10-07 15:28 | disposition home or self-care (01) ==
LOC: HO.LNP 15:27
PROVIDERS: Visit Provider Obstetrics & Gynecology
DX: T83.32XA Displacement of intrauterine contraceptive device, initial encounter (principal); N93.9 Abnormal uterine and vaginal bleeding, unspecified; X58.XXXA Exposure to other specified factors, initial encounter; Y93.9 Activity, unspecified; Y92.9 Unspecified place or not applicable; Y99.9 Unspecified external cause status
CPT/HCPCS: 87491; 87591; 88305

== ENCOUNTER 2024-10-23 11:48 | Outpatient (REF) | payer MEDICAID, SELFPAY ==
--- OUTSIDE RECORDS SUMMARY | 2024-10-23 14:11 | XMS_ITS | Encounter Summary ---
Author Organization [employer] Address [address] [facility] [address] [place] [address] Care Team Providers Care Contract Modeler Name Role Phone Perlita Garza MD Primary Care Provider [phone] Reason for Visit * Reason Comments Med Refill Encounter Details Date Type Department Care Team ([facility] st Contact Info) Description 06/05/2023 Refill [facility] [address] [place] [address] Alessio Rasheed MD [address] [place] [address] Acute otitis externa of right ear, unspecified [...] Upcoming Encounters Date Type Department Care Team ([facility] st Contact Info) Description 12/26/2024 10:15 AM EDT Nurse Only [facility] [address] [place] [address] documented as of this encounter Visit Diagnoses Diagnosis Acute otitis externa of right ear, unspecified type documented in this encounter Care Teams Contract Modeler Relationship Specialty Start Date End Date Perlita Garza MD [address] [place] [address] PCP - General Internal Medicine 03/04/18 documented as of this encounter
[2024-10-23 15:20] LABS: Cholesterol 173 mg/dL (<200); HDL Cholesterol 54 mg/dL (>40); LDL Cholesterol Calculated 103 mg/dL (<100); TSH reflex Free T4 2.08 uIU/mL (0.32-4.0); Triglycerides 81 mg/dL (<150)
[2024-10-24 08:47] LABS: HIV AB/AG Nonreactive (Nonreactive); HIV Num 1 0.05 S/CO (0.00-0.99); ~HepC Num1 0.16 S/CO (0.00-0.79); ~Hepatitis C Antibody Nonreactive (Nonreactive)
== END 2024-10-23 11:49 | disposition home or self-care (01) ==
LOC: HO.CHCLDS 11:48
PROVIDERS: Visit Provider Internal Medicine
DX: Z00.00 Encounter for general adult medical examination without abnormal findings (principal); E66.9 Obesity, unspecified
CPT/HCPCS: 36415; 80061; 84443; 86803; 87389

== ENCOUNTER 2024-10-30 08:17 | Outpatient (REF) | payer OTHER, SELFPAY ==
--- NOTE | ~2024-10-30 | US_ITS ---
EXAMINATION: US LOWER EXTREMITY VENOUS (REFLUX EXAM), BILATERAL CLINICAL INFORMATION: Margins. COMPARISON: None. TECHNIQUE: Color flow triplex imaging and compression Doppler was performed to evaluate both the deep and the superficial systems bilaterally. To evaluate the superficial system, the examination was performed in the upright position. Color-flow Doppler ultrasound and compression ultrasound were utilized. In addition, maneuvers were utilized to demonstrate reflux. FINDINGS: 1. DEEP VENOUS ULTRASOUND OF THE RIGHT LOWER EXTREMITY: Common Femoral Vein: Compressible, normal respiratory variation and augmented flow. Femoral Vein: Compressible, normal color flow and augmentation. Popliteal Vein: Compressible, normal augmentation. Deep Reflux: There is no evidence of reflux in the deep system in either the common femoral vein, superficial femoral or the popliteal vein. There is no evidence of a Robledo's cyst. 2. SUPERFICIAL ULTRASOUND WITH DOPPLER OF RIGHT LOWER EXTREMITY: GREAT SAPHENOUS VEIN: Saphenofemoral Junction: 0.5 cm; Reflux: 0 ms Proximal Thigh: 0.4 cm; Reflux: 0 ms Mid Thigh: 0.3 cm; Reflux: 0 ms Distal Thigh: 0.3 cm; Reflux: 0 ms At Knee: 0.3 cm; Reflux: 0 ms Proximal Calf: 0.3 cm; Reflux: 0 ms Mid Calf: 0.2 cm; Reflux: 0 ms Distal Calf: 0.2 cm; Reflux: 0 ms DUPLICATED MEDIAL GREAT SAPHENOUS VEIN: Diameter: None imaged Reflux: NA DUPLICATED LATERAL GREAT SAPHENOUS VEIN: Diameter: 0.2 cm. Reflux: NA SMALL SAPHENOUS VEIN: Saphenopopliteal Junction: 0.2 cm; Reflux: 0 ms Proximal: 0.1 cm; Reflux: 0 ms Distal: 0.2 cm; Reflux: 0 ms VEIN OF GIACOMINI: Size: NA Reflux: NA PERFORATORS: Location: Mid thigh and midcalf. Size: 0.1-0.2 cm. Reflux: NA VARICOSITIES: Location: None imaged. Size: NA Reflux: NA 3. DEEP VENOUS ULTRASOUND OF THE LEFT LOWER EXTREMITY: Common Femoral Vein: Compressible, normal respiratory variation and augmented flow. Femoral Vein: Compressible, normal color flow and augmentation. Popliteal Vein: Compressible, normal augmentation. Deep Reflux: There is no evidence of reflux in the deep system in either the common femoral vein, superficial femoral or the popliteal vein. There is no evidence of a Robledo's cyst. 4. SUPERFICIAL ULTRASOUND WITH DOPPLER OF LEFT LOWER EXTREMITY: GREAT SAPHENOUS VEIN: Saphenofemoral Junction: 0.5 cm; Reflux: 0 ms Proximal Thigh: 0.3 cm; Reflux: 0 ms Mid Thigh: 0.2 cm; Reflux: 0 ms Distal Thigh: 0.2 cm; Reflux: 0 ms At Knee: 0.2 cm; Reflux: 0 ms Proximal Calf: 0.2 cm; Reflux: 0 ms Mid Calf: 0.2 cm; Reflux: 0 ms Distal Calf: 0.2 cm; Reflux: 0 ms DUPLICATED MEDIAL GREAT SAPHENOUS VEIN: Diameter: None imaged Reflux: NA DUPLICATED LATERAL GREAT SAPHENOUS VEIN: Diameter: 0.3 cm. Reflux: NA SMALL SAPHENOUS VEIN: Saphenopopliteal Junction: 0.2 cm; Reflux: 0 ms Proximal: 0.1 cm; Reflux: 0 ms Distal: 0.2 cm; Reflux: 0 ms VEIN OF GIACOMINI: Size: NA Reflux: NA PERFORATORS: Location: Proximal to mid calf. Size: 0.1-0.2 cm. Reflux: NA VARICOSITIES: Location: None Imaged Size: NA Reflux: NA US/US venous duplex LE BI IMPRESSION: Right: No venous insufficiency. Perforators without reflux.. Left: No venous insufficiency. Perforators without reflux. Electronically signed by: Everardo Larose MD 10/30/2024 09:42 AM EDT
--- OUTSIDE RECORDS SUMMARY | 2024-10-30 08:21 | XMS_ITS | Encounter Summary ---
Author Organization [employer] Address [address] [facility] [address] [place] [address] Care Team Providers Care Plastics Tooling Engineer Name Role Phone Perlita Garza MD Primary Care Provider [phone] Reason for Visit * Reason Comments Med Refill Encounter Details Date Type Department Care Team ([facility] st Contact Info) Description 06/05/2023 Refill [facility] [address] [place] [address] Alessio Rasheed MD [address] [place] [address] Acute otitis externa of right ear, unspecified [...] Care Team (Late st Contact Info) Description 12/26/2024 10:15 AM EDT Nurse Only [facility] [address] [place] [address] 01/22/2025 9:45 AM EDT Office Visit [facility] [address] [place] [address] Perlita Garza MD [address] [place] [address] documented as of this encounter Visit Diagnoses Diagnosis Acute otitis externa of right ear, unspecified type documented in this encounter Care Teams Plastics Tooling Engineer Relationship Specialty Start Date End Date Perlita Garza MD [address] [place] [address] PCP - General Internal Medicine 03/04/18 documented as of this encounter
== END 2024-10-30 08:18 | disposition home or self-care (01) ==
LOC: HO.US 08:17
PROVIDERS: PCP Internal Medicine; Visit Provider Physician Assistant Surgical
DX: I83.11 Varicose veins of right lower extremity with inflammation (principal); I83.12 Varicose veins of left lower extremity with inflammation
CPT/HCPCS: 93970

== ENCOUNTER → 2024-10-30 08:22 | Outpatient (BNV) | payer OTHER, SELFPAY | PROVIDERS: PCP Internal Medicine; Visit Provider Radiology Diagnostic Radiology | DX: I83.813 Varicose veins of bilateral lower extremities with pain (principal) | CPT/HCPCS: 93970 ==

== ENCOUNTER 2024-11-06 08:45 | Outpatient (REF) | payer OTHER, SELFPAY ==
--- OUTSIDE RECORDS SUMMARY | 2024-11-06 09:00 | XMS_ITS | Data Portability ---
Author Organization [facility], [address] Address [address] [place] [address] Care Team Providers Care Harness And Bag Inspector Name Role Phone [facility] Primary Care Provider [phone] Assessment No assessment recorded. Plan of Treatment Reminders Order Date Submit Date Provider Last Modified By Organization Details Last Modified Time Details Appointments None recorded. Lab None recorded. Referral None recorded. Procedures None recorded. Surgeries None recorded. Imaging None recorded. Medication Orders cyclobenzap rine 10 mg tablet 2022 023 Physician Practice [facility] #[id number], [address] [facility] [place], [place], [id number], 10:03:09 Patient TargetsNo targets recorded. Patient Instructions Encounter Date Encounter Id Patient Instructions Last Modified By Organization Details Last Modified Time 11/12/2022 [id number] getting back to normal after low back pain: care instructions [email or web address] Not available 11/12/2022 10:03:00 Reason for Referral None Reported. Problems Name Problem SNOMED Code Status Onset Date Resolution Date Notes Provider Name and Address Organization Details Recorded Time Asthma 070108348 Active [facility] 11/12/2022 09:48:11 Problem Notes None recorded. Medical Equipment None Reported. Allergies No known drug allergies Medications Name Sig Start Date Stop Date Status Note LastModified by Organization Details LastModified Time cyclobenzap rine 10 mg tablet TAKE 1 TABLET BY MOUTH ONCE NIGHTLY NEEDED FOR BACK PAIN active Not Available Not Available No t Available ibuprofen 800 mg tablet TAKE 1 TABLET BY MOUTH THREE TIMES DAILY DURING MENSES WITH FOOD FOR 5 DAYS 11/12 completed Not Available Not Available Not Available prednisone 20 mg tablet 11/12 completed Not Available Not Available Not Available ibuprofen 400 mg tablet 11/12 completed Not Available Not Available Not Available Advair Diskus 500 mcg-50 mcg/dose powder for inhalation INHALE 1 PUFF BY MOUTH EVERY 12 HOURS active Not Available Not Available No t Available montelukast 10 mg tablet TAKE 1 TABLET BY MOUTH EVERY DAY IN THE EVENING 11/12 completed Not Available Not Available Not Available Cipro HC 0.2 %-1 % ear drops,suspe nsion INSTILL 3 DROPS INTO EACH EAR TWICE DAILY FOR 7 DAYS 11/12 completed Not Available Not Available Not Available Cortisporin -TC 3.3 mg-3 mg-10 mg-0.5 mg/mL ear drops,suspe nsion 11/12 completed Not Available Not Available Not Available amoxicillin 875 mg-potassiu m clavulanate 125 mg tablet TAKE 1 TABLET BY MOUTH IN THE MORNING AND AT BEDTIME FOR 7 DAYS 11/12 completed Not Available Not Available Not Available Ventolin HFA 90 mcg/actuati on aerosol inhaler INHALE 2 PUFFS INTO THE LUNGS EVERY 4 HOURS 11/12 completed Not Available Not Available Not Available Spiriva with HandiHaler 18 mcg and inhalation capsules INHALE THE CONTENTS OF 1 CAPSULE VIA INHALATIO N DEVICE 1 TIME active Not Available Not Available No t Available erythromyci n with ethanol 2 % topical solution APPLY THIN LAYER TOPICALLY TO THE AFFECTED AREA EVERY DAY IN THE MORNING AND IN THE EVENING 11/12 completed Not Available Not Available Not Available blood pressure test kit-large cuff USE TO CHECK BLOOD PRESSURE DIRECTED TWICE DAILY 11/12 completed Not Available Not Available Not Available BinaxNOW COVID-19 Ag Self Test kit TEST DIRECTED TODAY 11/12 completed Not Available Not Available Not Available Vitals Date Recorded Body height Body mass index (BMI) Body weight Oxygen saturation Oxygen saturation in Arterial blood by Pulse oximetry Heart rate Respiratory rate Body temperature Systolic And Diastolic Provider Name and Address Organization Details Last Updated DateTime 3 167.64 cm 32.3 kg/m2 16474.4 7 g 100 % 100 % 63 /min 16 /min 97.5 [degF] 121/80 mm[Hg] Marcy Lopez PA - [facility] 3 09:50:59 Social History Question Answer Notes LastModified by Organizat ion Details LastModified Time Tobacco Smoking Status Never Smoker Marcy Schaferla null, PA - [facility] 11/12/2022 09:48:23 Have You Had Direct Contact, Or Contact During Intimacy, With Monkeypox Rash, Scabs, Or Body Fluids From A Person With Monkeypox? No Information not available 11/12/2022 Have You Recently Traveled Abroad? No Information not available 11/12/2022 Sex: Unknown Functional Status Question Answer Note LastModified by Organizat ion Details LastModified Time Do you use any illicit or recreational drugs? No Information not available 11/12/2022 What is your level of alcohol consumption? None Information not available 11/12/2022 Mental Status None recorded. Family History Relationship Description Onset Age of this Age Resolved Age Notes LastModified by Organization Details LastModified Time Father No current problems or disability [email or web address] Not available 11/12 09:48:15 Mother No current problems or disability [email or web address] Not available 11/12 09:48:15 Medical History No medical history recorded. Gynecological History Statement/Question Response Date of LMP 09/18/2022 Is there any chance of ? No Obstetrics History GPAL:G 0 P 0 0 0 0 Immunizations Vaccine Type Date Status Note Provider Nam e and Address Organization Details Recorded Time Influenza, split virus, quadrivalent, preservative 8 completed Marcy Ruszala null, PA - [facility] 11/12/2022 09:46:33 Influenza, split virus, quadrivalent, preservative 9 completed Marcy Ruszala null, PA - [facility] 11/12/2022 09:46:33 COVID-19, mRNA, LNP-S, PF, 30 mcg/0.3 mL dose 2 completed Marcy Ruszala null, PA - [facility] 11/12/2022 09:46:33 COVID-19, mRNA, LNP-S, PF, 30 mcg/0.3 mL dose 1 completed Marcy Ruszala null, PA - [facility] 11/12/2022 09:46:33 COVID-19, mRNA, LNP-S, PF, 30 mcg/0.3 mL dose 1 completed Marcy Ruszala null, PA - [facility] 11/12/2022 09:46:33 Influenza, split virus, trivalent, preservative 0 completed Marcy Ruszala null, PA - [facility] 11/12/2022 09:46:33 Influenza, split virus, quadrivalent, PF 2 completed Marcy Ruszala null, PA - [facility] 11/12/2022 09:46:33 Influenza, split virus, quadrivalent, PF 1 completed Marcy Ruszala null, PA - [facility] 11/12/2022 09:46:33 Past Encounters Encounter ID Performer Location Encounter Start Date Encounter Closed Date Diagnosis/Indication Diagnosis SNOMED-CT Code Diagnosis ICD10 Code Diagnosis Note [id number] [address] [place] [address] 03/02/2020 09:25:16 03/02/2020 10:46:50 [id number] [address] [place] [address] 01/22/2017 10:56:01 01/22/2017 12:05:50 [id number] Surendra Pitts DO [address] [place] [address] 11/12/2022 08:21:16 11/12/2022 10:05:32 Low back pain 614513297 M54.50 Likely muscular originc/w NSAID. recommend alternate with tyelnolRx muscle relaxerRev iewed with patient potential adverse side effects of the medication .Topical analgesicE xercise/st retching, massage, heat applicatio n, support, proper lifting techniqueS x may last for 4-6 weeksRTC if persistent sx or onset neurologic al sx like motor weakness/l oss of sensationF urther evaluation if sx persists or worsen Health Concerns Section Related Observation LastModified by Organization Detai ls LastModified Time None Recorded Concern Status LastModified by Organization Details LastModified Time None Recorded Advance Directives Directive None Recorded Payers Insurance Date Sequence Insurance Name Policy Number Policy Pineda Covered Member ID Pineda Member ID Guarantor Name 12/16/2022 1 [place]: [facility] Chirstina Gonzalez [id number] Christina Gonzalez Notes Date Note Type Note Provider Name and Address Organization Details Recorded Time 11/12/2022 text/html Back Pain/Injury UCReported bypatient.Notes:42 yo female c/o LBP x 2 days started after bending over No numbness/tinglingNo weaknessNo foot dropNo saddle anesthesiaNo incontinenceNo traumaNo rash Surendra Pitts, DO [address] [place], [address], PA - [facility] 11/12/2022 10:04:16 OBGyn Episode No OBEpisode recorded.
--- OUTSIDE RECORDS SUMMARY | 2024-11-06 09:00 | XMS_ITS | Encounter Summary ---
Author Organization [employer] Address [address] [facility] [address] [place] [address] Care Team Providers Care Dowel Pin Worker Name Role Phone Perlita Garza MD Primary Care Provider [phone] Reason for Visit * Reason Comments Med Refill Encounter Details Date Type Department Care Team ([facility] st Contact Info) Description 06/05/2023 Refill [facility] [address] [place] [address] Alessio Rasheed MD [address] [place] [address] Acute otitis externa of right ear, unspecified [...] Description 12/26/2024 10:15 AM EDT Nurse Only [facility] [address] [place] [address] 01/22/2025 9:45 AM EDT Office Visit [facility] [address] [place] [address] Perlita Garza MD [address] [place] [address] documented as of this encounter Visit Diagnoses Diagnosis Acute otitis externa of right ear, unspecified type documented in this encounter Care Teams Dowel Pin Worker Relationship Specialty Start Date End Date Perlita Garza MD [address] [place] [address] PCP - General Internal Medicine 03/04/18 documented as of this encounter
== END 2024-11-06 08:46 | disposition home or self-care (01) ==
LOC: HO.MAMMO 08:45
PROVIDERS: PCP Internal Medicine; Visit Provider Obstetrics & Gynecology
DX: Z12.31 Encounter for screening mammogram for malignant neoplasm of breast (principal)
CPT/HCPCS: 77063; 77067

== ENCOUNTER → 2024-11-06 08:45 | Outpatient (BNV) | payer OTHER, SELFPAY | PROVIDERS: PCP Internal Medicine; Visit Provider Radiology Body Imaging | DX: Z12.31 Encounter for screening mammogram for malignant neoplasm of breast (principal) | CPT/HCPCS: 77063; 77067 ==

== ENCOUNTER 2024-11-20 14:27 | Outpatient (AMB) | payer OTHER, SELFPAY ==
[2024-11-20 14:31] VITALS: BP 100/62; PULSE 87; O2SAT 98; BMI 29.2
--- NOTE | 2024-11-20 14:31 | MHC.OFFVIS ---
Vital Signs 11/20/24 14:31 Height 5 ft 6 in Weight 181 lb BMI 29.2 BP 100/62 Blood Pressure Location Rt brachial Position Sitting Pulse 87 Pulse Source Pulse Oximeter Pulse Oximetry (%) 98 Oxygen Delivery Method Room Air Intake Visit Reasons: asthma Allergies No Known Allergies Allergy (Mild, Verified 10/02/24 10:31) NOT APPLICABLE HPI HPI asthma: Details: 44-year-old lady followed for underlying asthma/COPD overlap syndrome and environmental allergies.? She has been previous on Xolair, Advair, Spiriva, and albuterol MDI with excellent control of his symptoms. Recently her insurance has changed and she was not a longer able to get Advair and Xolair and now his symptoms are not as well controlled as she has been relying heavily on albuterol MDI, though she denies acute exacerbations. [facility] Medical History Asthma Family History Mother Diabetes Social History Household Members: Children Housing: Apartment Alcohol intake: never Patient Tobacco Use Status: Former Tobacco user Tobacco use type: Cigarette Years Smoked: 10 Substance Use Type: Marijuana service: No Current occupational status: employed Current occupation: [employer] Sexual orientation: Straight/Heterosexual Gender identity: Female Review of Systems Const Denies daytime sleepiness, Denies excessive sweating, Denies fatigue, Denies fever(s), Denies lethargy, Denies malaise, Denies night sweats, Denies snoring and Denies weight loss Eyes Denies blurry vision and Denies itchy eyes ENT Denies nasal congestion, Denies post nasal drip, Denies sinus pain, Denies sinus pressure and Denies other ( Thrush) Card Denies chest pain, Denies pedal edema, Denies dyspnea, Denies orthopnea and Denies paroxysmal nocturnal dyspnea Resp Denies cough, Denies hemoptysis, Denies excessive phlegm production, Denies dyspnea, Denies snoring and Denies wheezing GI Denies abdominal pain and Denies heartburn Musc Denies myalgias, Denies arthralgias and Denies joint swelling Skin/Breast Denies rash Neuro Denies memory loss and Denies seizure-like activity Psych Denies abnormal sleep pattern, Denies anxiety and Denies memory loss Endo Denies excessive sweating, Denies fatigue and Denies heat intolerance Justin/Lymph Denies easy bruising Aller/Immun Denies itchy eyes, Denies seasonal rhinorrhea and Denies wheezing Physical Exam Vital Signs: Last Vital Signs Pulse 87 11/20/24 14:31 BP 100/62 11/20/24 14:31 Pulse Ox 98 11/20/24 14:31 Oxygen Delivery Method Room Air 11/20/24 14:31 BMI result Body Mass Index 29.2 Const General: no acute distress and alert Nutritional Appearance: not obese Orientation/consciousness: Other orientation findings ( oriented) HEENT Head: Yes atraumatic Eyes General: appearance normal, both eyes and all related structures Sclerae: sclerae normal EOM: EOMs intact bilaterally Neck Neck: Yes supple Lymphatic: no lymphadenopathy noted Resp Effort & Inspection: normal respiratory effort and no use of accessory muscles Auscultation: clear to auscultation bilaterally Cardio Rate: regular rate Rhythm: regular rhythm Heart sounds: no gallops, no murmurs and no rubs Skin General skin exam: other ( warm) Extrem General: No clubbing, No cyanosis and No edema Assessment & Plan Assessment & Plan (1) Asthma-COPD overlap syndrome: Code(s): J44.9 - Chronic obstructive pulmonary disease, unspecified Category: Medical Plan: Suboptimal control off Xolair and Advair. Restart Xolair and Advair. Continue albuterol MDI. (2) Environmental allergies: Code(s): Z91.09 - Other allergy status, other than to drugs and biological substances Category: Medical Plan: Uncontrolled off Xolair, expect to improve after restarting Xolair. Medications: New fluticasone propion-salmeterol 500-50 mcg/dose (Advair Diskus) 1 ea inhalation Q12H 60 ea 6RF Coding Level of Care Code Est Pt Level 4 (60787) Diagnoses Asthma-COPD overlap syndrome J44.9 Environmental allergies Z91.09
--- OUTSIDE RECORDS SUMMARY | 2024-11-20 14:36 | XMS_ITS | Data Portability ---
Author Organization [facility], [address] Address [address] [place] [address] Care Team Providers Care Disc Inspector Name Role Phone [facility] Primary Care Provider [phone] Assessment No assessment recorded. Plan of Treatment Reminders Order Date Submit Date Provider Last Modified By Organization Details Last Modified Time Details Appointments None recorded. Lab None recorded. Referral None recorded. Procedures None recorded. Surgeries None recorded. Imaging None recorded. Medication Orders cyclobenzap rine 10 mg tablet 2022 023 [facility][id number], [address] [facility] [place], [place], [id number], 10:03:09 Patient TargetsNo targets recorded. Patient Instructions Encounter Date Encounter Id Patient Instructions Last Modified By Organization Details Last Modified Time 11/12/2022 [id number] getting back to normal after low back pain: care instructions [email or web address] Not available 11/12/2022 10:03:00 Reason for Referral None Reported. Problems Name Problem SNOMED Code Status Onset Date Resolution Date Notes Provider Name and Address Organization Details Recorded Time Asthma 327009106 Active [facility] 11/12/2022 09:48:11 Problem [...] height Body mass index (BMI) Body weight Pain severity - 0-10 verbal numeric rating [Score] - Reported Oxygen saturation Oxygen saturation in Arterial blood by Pulse oximetry Heart rate Respiratory rate Body temperature Systolic And Diastolic Provider Name and Address Organization Details Last Updated DateTime 3 167.64 cm 32.3 kg/m2 90640.4 7 g 8 100 % 100 % 63 /min 16 /min 97.5 [degF] 121/80 mm[Hg] Marcy Lopez PA - [facility] 09:50:59 Social History Question Answer Notes LastModified by Organizat ion Details LastModified Time Tobacco Smoking Status Never Smoker Marcy pickens, PA - [facility] 11/12/2022 09:48:23 Have [...] split virus, quadrivalent, preservative 8 completed Marcy Lopez null, PA - [facility] 11/12/2022 09:46:33 Influenza, split virus, quadrivalent, preservative 9 completed Marcylaquita Schaferla null, PA - [facility] 11/12/2022 09:46:33 COVID-19, mRNA, LNP-S, PF, 30 mcg/0.3 mL dose 2 completed Marcy Bolivarzala null, PA - [facility] 11/12/2022 09:46:33 [...] SNOMED-CT Code Diagnosis ICD10 Code Diagnosis Note [id number] [address] [place] [address] 03/02/2020 09:25:16 03/02/2020 10:46:50 [id number] [address] [place] [address] 01/22/2017 10:56:01 01/22/2017 12:05:50 [id number] Surendra Pitts DO [address] [place] [address] 11/12/2022 08:21:16 11/12/2022 10:05:32 Low back pain 479908788 M54.50 Likely muscular originc/w NSAID. recommend alternate [...] Pineda Member ID Guarantor Name 12/16/2022 1 [place]: [facility] Christina Gonzalez [id number] Christina Gonzalez Notes Date Note Type Note Provider Name and Address Organization Details Recorded Time 11/12/2022 text/html Back Pain/Injury UCReported by [email or web address] yo female c/o LBP x 2 days started after bending over No numbness/tinglingNo weaknessNo foot dropNo saddle anesthesiaNo incontinenceNo traumaNo rash ROS as noted in the HPI Surendra Pitts DO [address] [place], [address], PA - [facility] 11/12/2022 10:04:16 OBGyn Episode No OBEpisode recorded.
--- OUTSIDE RECORDS SUMMARY | 2024-11-20 14:36 | XMS_ITS | Encounter Summary ---
Author Organization [facility] Address [address] [facility] [address] [place] [address] Care Team Providers Care Log Turner Name Role Phone Perlita Garza MD Primary Care Provider [phone] Reason for Visit * Reason Comments Med Refill Encounter Details Date Type Department Care Team ([facility] st Contact Info) Description 06/05/2023 Refill [facility] [address] [place] [address] Alessio Rasheed MD [address] [place] [address] Acute otitis externa of right ear, unspecified [...] Description 12/26/2024 10:15 AM EDT Nurse Only [facility] [address] [place] [address] 01/22/2025 9:45 AM EDT Office Visit [facility] [address] [place] [address] Perlita Garza MD [address] [place] [address] documented as of this encounter Visit Diagnoses Diagnosis Acute otitis externa of right ear, unspecified type documented in this encounter Care Teams Log Turner Relationship Specialty Start Date End Date Perlita Garza MD [address] [place] [address] PCP - General Internal Medicine 03/04/18 documented as of this encounter
== END 2024-11-20 14:52 | disposition home or self-care (01) ==
LOC: HO.HPS 14:28
PROVIDERS: PCP Internal Medicine; Visit Provider Internal Medicine Pulmonary Disease
DX: J44.9 Chronic obstructive pulmonary disease, unspecified (principal); Z91.09 Other allergy status, other than to drugs and biological substances
CPT/HCPCS: 99214

== ENCOUNTER → 2024-11-20 14:27 | Outpatient (BNVA) | payer OTHER, SELFPAY | PROVIDERS: PCP Internal Medicine; Visit Provider Internal Medicine Pulmonary Disease | DX: Z01.419 Encounter for gynecological examination (general) (routine) without abnormal findings (principal); J44.89 Other specified chronic obstructive pulmonary disease; Z91.09 Other allergy status, other than to drugs and biological substances | CPT/HCPCS: 99212; 99396 ==

== ENCOUNTER 2024-11-20 14:59 | Outpatient (AMB) | payer OTHER, SELFPAY ==
--- NOTE | 2024-11-20 15:01 | A.OFFVIS_ITS ---
Vital Signs 11/20/24 15:10 11/20/24 15:11 Height 5 ft 6 in Weight 180 lb BMI 29.0 BP 100/68 Intake Visit Reasons: annual/IUD check Bottoming Room Supervisor Required: No Accompanied by: Daughter Allergies No Known Allergies Allergy (Mild, Verified 11/20/24 15:07) NOT APPLICABLE HPI Comments Details: Presenting for annual exam. Since IUD insertion, the patient has no complaints periods are normal, not painful, and flow is normal. Last Pap/HPV was negative in 10/21 Last Mammogram was BI-RADS 1 in 11/21 [facility] Medical History Asthma Family History Mother Diabetes Social History Household Members: Spouse and Children Housing: House Alcohol intake: former Comment: social Patient Tobacco Use Status: Former Tobacco user Tobacco use type: Cigarette Years Smoked: 10 Substance Use Type: Marijuana service: No Current occupational status: employed Current occupation: [employer] Sexual orientation: Straight/Heterosexual Gender identity: Female Female Reproductive History Menstrual Age of Menarche: 9 Duration of menses: 6-7 days control method: progestin IUCD Total pregnancies: 5 Full term: 4 Ab spontaneous: 1 History of abnormal pap smear: No Date of Mammogram: 11/06/24 History of abnormal mammogram: No Review of Systems Const All systems reviewed & are unremarkable except as noted in HPI and below Card Reports as per HPI Resp Reports as per HPI GI Reports as per HPI and Reports no additional complaints Reports as per HPI Physical Exam Const General: cooperative, healthy appearing and comfortable Chest Chest palpation & inspection: normal inspection of the chest and normal palpation of entire chest wall Breast/axilla inspection: normal inspection of the breasts and normal inspection of the axillae Breast/axilla palpation: normal palpation of the breasts, normal palpation of the axillae and no axillary lymphadenopathy Resp Effort & Inspection: normal respiratory effort Auscultation: clear to auscultation bilaterally Percussion: percussion normal Cardio Palpation: normal PMI Rate: regular rate Rhythm: regular rhythm Heart sounds: no murmurs and no rubs Peripheral pulses: Peripheral pulses 2+ throughout GI Inspection: Yes normal to inspection Palpation (GI): Soft to palpation, nontender, no guarding, not rigid and No hepatosplenomegaly present Percussion: Yes normal to percussion Auscultation: normal bowel sounds Rectal Exam - Female: deferred General: Yes bladder normal to palpation External Female Exam: No lesion Speculum Exam - Vagina: normal appearance of the vagina, normal palpation, nor mal vaginal discharge and not erythematous Speculum Exam - Cervix: normal appearance of the cervix, normal palpation and Other cervical findings present (IUD string seen in place) Bimanual exam- vagina & uterus: normal bimanual exam, normal palpation, uterine size normal, bladder normal to palpation, consistency normal and normal palpation Bimanual Exam- Adnexa, other: normal adnexae, no masses and no tenderness Assessment & Plan Assessment & Plan (1) Well woman exam: Code(s): Z01.419 - Encounter for gynecological examination (general) (routine) without abnormal findings Category: Medical Plan: Cotesting not indicated this year. Instructions given the patient to schedule next screening Mammogram in 11/22. Counseled the patient about the recommended dietary allowance of 1000 mg of Calcium & 600 IU of vitamin D. The patient was instructed to perform monthly self-breast exams and to schedule an annual exam in a year; All questions answered and the patient verbalized understanding. Instructed the patient to schedule annual exam in a year (2) IUD check up: Code(s): Z30.431 - Encounter for routine checking of intrauterine contraceptive device Category: Medical Plan: UPT done in the office was negative. Discussed with the patient the finding on physical exam, IUD string in place, the patient was reassured. Instructions given to patient to call in case of temperature above 100.4, severe cramping/pelvic pain, abnormal discharge or abnormal uterine bleeding or if she misses her menstrual cycle. Otherwise follow-up at her annual exam appointment. All questions answered, the patient verbalized understanding. Coding Level of Care Code Est Pt Level 3 (23266) Est Pt Prev Care 40-64y(15494) Diagnoses Well woman exam Z01.419 IUD check up Z30.431
[2024-11-20 15:10] VITALS: BMI 29.0
[2024-11-20 15:11] VITALS: BP 100/68
== END 2024-11-20 15:23 | disposition home or self-care (01) ==
PROVIDERS: PCP Internal Medicine; Visit Provider Obstetrics & Gynecology
DX: Z01.419 Encounter for gynecological examination (general) (routine) without abnormal findings (principal); Z30.431 Encounter for routine checking of intrauterine contraceptive device
CPT/HCPCS: 99396; 99459

== ENCOUNTER 2025-04-24 16:09 | Outpatient (REF) | payer OTHER, SELFPAY ==
--- NOTE | ~2025-04-24 | US_ITS ---
EXAMINATION: US PELVIS TRANSABDOMINAL AND TRANSVAGINAL HISTORY: N83.299 - Other ovarian cyst, unspecified side COMPARISON: Comparison is made with the prior examination dated 10/06/2024. TECHNIQUE: Transabdominal and endovaginal real-time 2D garcia-scale ultrasound was performed. FINDINGS: Uterus: The uterus is normal in size, measuring 10.7 x 6.3 x 7.5 cm. Myometrium has a normal echotexture. No fibroids are identified. Endometrium: The endometrial stripe measures 12 mm in thickness. An IUD is seen in appropriate position in the endometrial cavity. Right ovary: The right ovary measures 3.4 x 2.9 x 2.3 cm. The right ovary is normal in size and echotexture. There is a 10 x 17 x 9 mm dominant follicle. Left ovary: The left ovary is not visualized. Pelvic fluid: none. US/US pelvic and transvaginal IMPRESSION: IUD in appropriate position in the endometrial canal. The left ovary is not visualized. Otherwise unremarkable pelvic ultrasound. Electronically signed by: Brandon Cunningham MD 04/27/2025 06:57 AM [facility]
--- OUTSIDE RECORDS SUMMARY | 2025-04-24 16:12 | XMS_ITS | Encounter Summary ---
Author Organization [employer] Address [address] [place] [address] [address], [place] [address] Care Team Providers Care Records Management Clerk Name Role Phone Perlita Garza MD Primary Care Provider [phone] Reason for Referral * Imaging (Routine) - Canceled Specialty Diagnoses / Procedures Referred By Danny jaeger Referred To Contact Radiology Diagnoses Hyperprolactinemia (CMS/HCC) Procedures MR PITUITARY AND BRAIN, WITH AND WITHOUT Perlita Garza MD [address] [place] [address] Phone: tel: fax: [address] [phone] Phone: tel: fax: Referral ID Status Reason Start Date Expiration Date V isits Requested Visits Authorized [id number] Canceled 08/01/2023 07/31/2024 1 1 * Consultation (Routine) - Closed Specialty Diagnoses / Procedures Referred By Danny jaeger Referred To Contact Endocrinology Diagnoses Hyperprolactinemia (CMS/HCC) Perlita Garza MD [address] [place] [address] Phone: tel: fax: [facility]ology [address] [place], [place] Phone: tel: fax: Referral ID Status Reason Start Date Expiration Date V isits Requested Visits Authorized [id number] Closed Specialty Services Required 07/27/2023 07/26/2024 1 1 Encounter Details Date Type Department Care Team (Latest Contact Info) Description 07/27/2023 Orders Only [facility] MED & PEDS [address] [place] [address] Perlita Garza MD [address] [place] [address] Hyperprolactinemia (CMS/HCC) (Primary Dx) Social History Tobacco Use Types Packs/Day Years [...] off services in your home? No 06/07/2023 Depression Answer Date Recorded Patient Health Questionnaire-2 Score 0 07/26/2023 Comments No Sex and Gender Information Value Date Recorded Sex Assigned at Female 02/27/2022 10:34 AM EDT Legal Sex Female 10:34 AM EDT Gender Identity Female 02/27/2022 10:34 AM EDT Sexual Orientation Straight 02/27/2022 10 :34 AM EDT documented as of this encounter Plan of Treatment Scheduled Orders Name Type Priority Associated Diagnoses Orde r Schedule MR PITUITARY AND BRAIN, WITH AND WITHOUT Imaging Routine Hyperprolactinemia ([facility]/HCC) Expected: 08/01/2023, Expires: 07/31/2024 Scheduled Referrals Name Type Priority Associated Diagnoses Order Schedule Referral to Endocrinology Outpatient Referral Routine Hyperprolactinemia (CMS/HCC) Expected: 07/27/2023 (Approximate), Expires: 07/26/2024 documented as of this encounter Visit Diagnoses Diagnosis Hyperprolactinemia (CMS/[facility])- Primary Other and unspecified anterior pituitary hyperfunction documented in this encounter Additional Health Concerns Assessment Noted Time PHQ-9 Depression Total Score: 0 07/26/19 24 1:55 PM EDT documented as of this encounter Care Teams Records Management Clerk Relationship Specialty Start Date End Date Perlita Garza MD [address] [place] [id number] PCP - General Internal Medicine 03/04/18 documented as of this encounter
--- OUTSIDE RECORDS SUMMARY | 2025-04-24 16:12 | XMS_ITS | Encounter Summary ---
Author Organization [employer] Address [address] [place] [address] [address] [place] [address] Care Team Providers Care Podiatry Doctor Name Role Phone Perlita Garza MD Primary Care Provider [phone] Encounter Details Date Type Department Care Team ([facility] st Contact Info) Description 03/10/2024 Orders Only [facility] CH[facility] MED & PEDS [address] [place] [address] Perlita Garza MD [address] [place] [address] Social History Tobacco Use Types Packs/Day Years [...] as of this encounter Plan of Treatment Not on file documented as of this encounter Visit Diagnoses Not on filedocumented in this encounter Additional Health Concerns Assessment Noted Time PHQ-9 Depression Total Score: 0 07/26/19 24 1:55 PM EDT documented as of this encounter Care Teams Podiatry Doctor Relationship Specialty Start Date End Date Perlita Garza MD [address] [place] [id number] PCP - General Internal Medicine 03/04/18 documented as of this encounter
--- OUTSIDE RECORDS SUMMARY | 2025-04-24 16:12 | XMS_ITS | Encounter Summary ---
Author Organization [employer] Address [address] [place] [address] [address] [place] [address] Care Team Providers Care Search Engine Marketing Manager Name Role Phone Perlita Garza MD Primary Care Provider [phone] Encounter Details Date Type Department Care Team ([facility] st Contact Info) Description 10/11/2023 Orders Only [facility] CHC MED & PEDS [address] [facility] [place], [place] [id number] Perlita Garza MD [address] [place] [address] Obesity (BMI 30-39.9) (Primary Dx) Social History Tobacco Use Types [...] as of this encounter Visit Diagnoses Diagnosis Obesity (BMI 30-39.9)- Primary documented in this encounter Additional Health Concerns Assessment Noted Time PHQ-9 Depression Total Score: 0 07/26/19 24 1:55 PM EDT documented as of this encounter Care Teams Search Engine Marketing Manager Relationship Specialty Start Date End Date Perlita Garza MD [address] [place] [id number] PCP - General Internal Medicine 03/04/18 documented as of this encounter
--- OUTSIDE RECORDS SUMMARY | 2025-04-24 16:12 | XMS_ITS | Clinical Summary ---
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 Knee high. To wear daily prior to getting out of bed. 1 each 4 Active Advair Diskus 500-50 MCG/ACT aerosol powder INHALE 1 PUFF BY MOUTH EVERY 12 HOURS 60 each 3 4 Active cetirizine (ZyrTEC) 10 MG tabletIndications: Environmental allergies Take 1 tablet (10 mg) by mouth Once per day. 30 tablet 11 5 Active albuterol 108 (90 Base) MCG/ACT inhalerIndications :Other emphysema (HCC) INHALE 2 PUFFS INTO THE LUNGS EVERY 4 HOURS 18 g 1 5 Active topiramate 50 MG tablet TAKE 1 TABLET(50 MG) BY MOUTH AT BEDTIME 90 tablet 5 Active phentermine 15 MG capsule TAKE 1 CAPSULE(15 MG) BY MOUTH BEFORE BREAKFAST 28 capsule 2 5 Active Active Problems Problem Noted Date Diagnosed Date Obesity (BMI 30-39.9) 02/07/2024 Nicotine dependence 10/28/2020 Chronic obstructive lung disease 04/06/2018 Encounters Date Type Department Care Team Description 04/17/2025 9:30 AM EST Clinical Support [facility] [address] [place] [address] Audrey Parker RN Encounter for immunization 04/17/2025 Travel 04/10/2025 Travel 01/29/2025 Refill [facility] [address] [place] [address] Mini Shrestha MD from Last 3 Months Immunizations Immunization Administration Dates Next Due Hep B, adult 04/17/2025,12/26/2024,10/23/2024 Influenza injectable quadriv alent IIV4 with preservative 04/09/2019,03/04/2018 Influenza injectable quadriv alent preservative free 05/08/2023,02/09/2022,04/28/2021 Influenza, IIV3, injectable 01/10/2010 Pfizer Covid-19 Vaccine 12+ 01/22/2025,,08/16/2020 Pneumococcal Conjugate PCV 20 10/23/2024 Tdap 10/23/2024 Family History Medical History Relation Name Comments Hypertension Father Diabetes type II Mother Relation Name Status Comments Father Mother Social History Tobacco Use Types Packs/Day Years Used Date Smoking Tobacco: Former Smokeless Tobacco: Never Alcohol Use Standard Drinks/Week Comments Never 0 (1 standard drink = 0.6 oz pur e alcohol) Alcohol Answer Date Recorded Q1: How often do you have a drink containing alc ohol? 2 10/23/2024 Q2: How many drinks containi ng alcohol do you have on a typical day when you are drinking? 0 10/23/2024 Q3: How often do you have six or more drinks on one occasion? 2 10/23/2024 Depression Answer Date Recorded Patient Health Questionnaire-9 Score 0 10/23/2024 Patient Health Questionnaire-9 Score 0 10/23/2024 Last PHQ-9: Questionnaire Data Not on file 0 10/23/2024 Housing Stability Answer Date Recorded What is your housing situation today? I have emanikristin june 07/18/[address] you li [...] Date Recorded Patient Health Questionnaire-2 Score 0 10/23/2024 Internet Access Answer Date Recorded Internet Access Q1 Yes 07/18/2024 Internet Access Q2 Not on file 07/18/2024 Comments No Sex and Gender Information Value Date Recorded Sex Assigned at Female 02/27/2022 10:34 AM EDT Legal Sex Female 10:34 AM EDT Gender Identity Female 02/27/2022 10:34 AM EDT Sexual Orientation Straight 02/27/2022 10 :34 AM EDT Last Filed Vital Signs Vital Sign Reading Time Taken Comments Blood Pressure 125/73 01/22/2025 9:57 AM EDT Pulse 73 01/22/2025 9:57 AM EDT Temperature 36.3 C (97.3 F) 10/23/2024 11:00 AM EDT Respiratory Rate 20 01/22/2025 9:57 AM EDT Oxygen Saturation 96% 01/22/2025 9:57 AM EDT Inhaled Oxygen Concentration - - Weight 82.1 kg (181 lb) 01/22/2025 9:57 AM EDT Height 165.1 cm (5' 5 ) 01/22/2025 9:57 AM EDT Body Mass Index 30.12 01/22/2025 9:57 AM EDT Plan of Treatment Health Maintenance Due Date Last Done Comments Family Planning (PISQ) 1995 HPV Vaccines (1 - 3-dose series) 1995 Influenza Vaccine (#1) 2024 , 02/09/2022, 04/28/2021, Additional history exists Alcohol/Substance Use Screening 10/23/2025 10/23/2024 Depression Screening 10/23/2025 10/23/2024, 10/24/19 SDOH Screening 10/23/2025 10/23/2024 Mammogram 11/06/2025 11/06/2024, 04/30, 03/30/2022 Disability Screening 12/19/2025 12/19/2024 Tobacco Screening 01/22/2026 01/22/2025 Cervical Cancer Screening 12/05/2028 HPV/Cotest 12/05/2028 10/10/2023, 01/04/2021 Pap Smear 12/05/2028 12/06/2023, 09/28, 01/04/2021 Lipid Panel 10/23/2029 10/23/2024 Zoster Vaccines (1 of 2) 2030 DTaP/Tdap/Td Vaccines (2 - Td or Tdap) 10/23/2034 10/23/2024 RSV Patients and Patients Aged 60 years or older (1 - 1-dose 75+ series) 2055 HIV Screening Completed 10/23/2024 Hepatitis C Screening Completed 10/23/2024 Pneumococcal Vaccine: Pediatrics (0 to 5 Years) and At-Risk Patients (6 to 49) Years Completed 10/23/2024 COVID-19 Vaccine Completed 01/22/2025, 12/2023, 05/05/2021, Additional history exists Hepatitis B Vaccines Completed 04/17/2025, 12/26/2024, 10/23/2024 HIB Vaccines Aged Out No longer eligi ble based on patient's age to complete this topic Hepatitis A Vaccines Aged Out No long er eligible based on patient's age to complete this topic IPV Vaccines Aged Out No longer eligi ble based on patient's age to complete this topic Meningococcal B Vaccine Aged Out No l onger eligible based on patient's age to complete this topic Meningococcal Vaccine Aged Out No todd caty eligible based on patient's age to complete this topic RSV under 20 months Aged Out No longe r eligible based on patient's age to complete this topic Rotavirus Vaccines Aged Out No longer eligible based on patient's age to complete this topic Procedures Procedure Name Priority Date/Time Associated Diagnosis Comments BI MAMMOGRAM SCREENING TOMOSYNTHESIS BILATERAL Routine 11/06/2024 8:47 AM EDT HEPATITIS C AB W/REFL TO HCV RNA, QN, PCR Routine 10/23/2024 11:50 AM EDT Annual physical exam HIV 1/2 ANTIGEN/ANTIBODY, FOURTH GENERATION W/RFL Routine 10/23/2024 11:50 AM EDT Annual physical exam LIPID PANEL, STANDARD Routine 10/23/2024 11:50 AM EDT Annual physical exam THINPREP IMAGING SYSTEM PAP Routine 12/06/2023 7:52 AM EDT HPV MRNA E6/E7 REFLEX TO HPV 16, 18/45 Routine 10/10/2023 11:39 AM EDT from Last 3 Months or Most Recently Relevant to Health Maintenance Results * BI Mammogram Screening Tomosynthesis Bilateral (11/06/2024 8:47 AM EDT) Anatomical Region Laterality Modality Breast Bilateral Mammography 11/06/2024 8:47 AM EDT Narrative 11/18/2024 8:47 PM EDT [facility] [address] [place] [address] Mammography Report Signed Patient: Christina Gonzalez MR#: [id number] 2 : 1980 Acct:[id number] Age/Sex: 44 / F ADM Date: 11/06/24 Loc: HO.MAMMO Attending Dr: Kunal Bales MD Ordering Physician: Kunal Bales MD Results: 1Negativ e Date of Service: 11/06/24 Follow Up: 1 Year From Orig ina Mammogram Procedure(s): MM tomosynthesis screening BI Accession Number(s): [id number] cc: Perlita Garza MD; Kunal Bales MD EXAMINATION: MM SCREENING DIGITAL BREAST TOMOSYNTHESIS, BILATERAL CLINICAL INFORMATION: Screening. Asymptomatic. COMPARISON: Comparison made to multiple prior, most recent May 10, 2023, and most remote March 03, 2021. TECHNIQUE: Digital breast tomosynthesis is performed in both the craniocaudal and mediolateral oblique views along with computer-aided detection (CAD). Synthesized 2D images are generated from the tomosynthesis. FINDINGS: BREAST COMPOSITION: There are scattered areas of fibroglandular density (ACR BI-RADS breast composition Category b). BILATERAL BREASTS: No significant masses, suspicious calcifications or other abnormalities are seen in either breast. MM/MM tomosynthesis screening BI IMPRESSION: BILATERAL BREASTS: Negative, no mammographic evidence of malignancy. Normal interval follow-up is recommended in 12 months. ASSESSMENT: BI-RADS 1 - Negative RECOMMENDATION: Routine annual mammography screening. FOLLOW-UP: 1 year F/U This examination should not preclude the clinical evaluation of a suspicious palpable abnormality. This patient's information was entered into a reminder system with a target due date for their next mammogram. Electronically signed by: Vijay Pathak MD 11/18/2024 08:44 PM EDT Dictated By: Vijay Pathak MD Signed By: <Electronically signed by Vijay Pathak MD in OV> 11/18/242043 DD/ 0847 TD/TT: 11/06/24 0906 Jumpbasting Facing Baster: Procedure Note Donotuseinterpreter, Image - 11/18/2024 [facility] [address] [place] [address] Mammography Report Signed Patient: Radha Gonzalez#: [id number] 2 : 1980Acct:[id number] Age/Sex: 44 / FADM Date: 11/06/24 Loc: HO.MAMMO Attending Dr: Kunal Bales MD Ordering Physician: Kunal Bales MDResults: 1Negativ e Date of Service: 11/06/24Follow Up: 1 Year From Orig inal Mammogram Procedure(s): MM tomosynthesis screening BI Accession Number(s): [id number] cc: Perlita Garza MD; Kunal Bales MD EXAMINATION: MM SCREENING DIGITAL BREAST TOMOSYNTHESIS, BILATERAL CLINICAL INFORMATION: Screening. Asymptomatic. COMPARISON: Comparison made to multiple prior, most recent May 10, 2023, and most remote March 03, 2021. TECHNIQUE: Digital breast tomosynthesis is performed in both the craniocaudal and mediolateral oblique views along with computer-aided detection (CAD). Synthesized 2D images are generated from the tomosynthesis. FINDINGS: BREAST COMPOSITION: There are scattered areas of fibroglandular density (ACR BI-RADS breast composition Category b). BILATERAL BREASTS: No significant masses, suspicious calcifications or other abnormalities are seen in either breast. MM/MM tomosynthesis screening BI IMPRESSION: BILATERAL BREASTS: Negative, no mammographic evidence of malignancy. Normal interval follow-up is recommended in 12 months. ASSESSMENT: BI-RADS 1 - Negative RECOMMENDATION: Routine annual mammography screening. FOLLOW-UP: 1 year F/U This examination should not preclude the clinical evaluation of a suspicious palpable abnormality. This patient's information was entered into a reminder system with a target due date for their next mammogram. Electronically signed by: Vijay Pathak MD 11/18/2024 08:44 PM EDT Workstation: [employer] Dictated By: Vijay Pathak MD Signed By: <Electronically signed by Vijay Pathak MD in OV> 11/18/242043 DD/ 0847 TD/TT: 11/06/24 0906 Jumpbasting Facing Baster: [facility] External Provider IMG BI PROCEDURES Final Result * Hepatitis C Antibody with Reflex to HCV, RNA, Quantitative, Real-Time PCR (10/23/2024 11:50 AM EDT) Hepatitis C Antibody Nonreactive Nonreactive [facility] Comment:Antibodies to HCV no t detected; does not exclude early acuteHCV infection. Blood Venous blood specimen / Unknown 10/23/2024 11:50 AM EDT 10/23/2024 2:24 PM EDT Perlita Garza MD LAB BLOOD ORDERABLES Final Result [facility] [address] [place] [phone] [phone] * HIV-1/2 Antigen and Antibodies, Fourth Generation, with Reflexes (10/23/2024 11:50 AM EDT) HIV AB/AG Nonreactive Nonreactive [facility] Comment:HIV-1 p24 Ag and/or HIV-1/HIV-2 Ab not detected.A test result that is nonreactive does not exclude thepossibility of exposure to or infection with HIV-1 and/orHIV-2. Nonreactive results in this assay for individualswith prior exposure to HIV-1 and/or HIV-2 may be due toantigen and antibody levels that are below the limit ofdetection of this assay.The [employer] HIV Ag/Ab Combo assay result andsupplemental assay results should be interpreted inconjunction with the patient's clinical presentation,history and other laboratory results. If the results areinconsistent with clinical evidence, additional testing issuggested to confirm the result. Blood Venous blood specimen / Unknown 10/23/2024 11:50 AM EDT 10/23/2024 2:24 PM EDT us Perlita Garza MD LAB BLOOD ORDERABLES Final Result Performing Organization Address [facility] Co de Phone Number [facility] [address] [place] [address] [phone] * (ABNORMAL) Lipid Panel, Standard (10/23/2024 11:50 AM EDT) Triglycerides 81 <150 mg/dL [facility] Comment:Desirable Triglyceri de: less than 150 mg/dLBorderline High Triglyceride 150-199 mg/dLHigh Triglyceride: 200-499 mg/dLVery High Triglyceride: greater than or equal to 5OO mg/dL Cholesterol 173 <200 mg/dL [facility] Comment:Desirable Cholestero l: less than 200 mg/dLBorderline High Cholesterol: 200-239 mg/dLHigh Cholesterol: greater than 239 mg/dL LDL Cholesterol Calculated 103(H) <100 mg/dL [facility] Comment:Desirable LDL: less than 100 mg/dLNear Optimal/Above Optimal LDL: 110- 129 mg/dLBorderline High LDL: 130-159 mg/dLHigh LDL: 160-189 mg/dLVery High LDL: greater than or equal to 190 mg/dL HDL Cholesterol 54 >40 mg/dL [facility] Comment:Desirable HDL: great er than 40 mg/dL Note: This HDL assay may give artificially low results in patients with liver disease. Blood Venous blood specimen / Unknown 10/23/2024 11:50 AM EDT 10/23/2024 2:24 PM EDT us Perlita Garza MD LAB BLOOD ORDERABLES Final Result [facility] [address] [place] [address] [phone] * ThinPrep Imaging System Pap (12/06/2023 7:52 AM EDT) SOURCE: SEE NOTE [facility] Comment:None given Report Status: TNP [facility] Clinical Information: SEE NOTE [facility] Comment:None given LMP: SEE NOTE [facility] Comment:NONE GIVEN Prev. PAP: SEE NOTE [facility] Comment:NONE GIVEN Prev. BX: SEE NOTE [facility] Comment:NONE GIVEN Statement Of Adequacy: SEE NOTE [facility] Comment:Satisfactory for felicia luation.Endocervical/transformation zone componentpresent. General Categorization: WYP [facility] Interpretation/Result: SEE NOTE [facility] Comment:Cytology Results: Ne gative for intraepitheliallesion or malignancy. Cytology Comment SEE NOTE [facility] Comment:This Pap test has be en evaluated with computerassisted technology. Ep Specialist: SEE NOTE [facility] Comment:DMK, CT(ASCP)CT scre ening location: [facility] [id number] preparation performed at: [facility] [address] CLIA No. [id number] Review Ep Specialist: WYP [facility] Pathologist [facility] PAP Infection [facility] See Note SEE NOTE [facility] Comment:EXPLANATORY NOTE:The Pap is a screening test for cervical cancer. It isnot a diagnostic test and is subject to false negativeand false positive results. It is most reliable when asatisfactory sample, regularly obtained, is submittedwith relevant clinical findings and history, and whenthe Pap result is evaluated along with historic andcurrent clinical information.THIS TEST WAS PERFORMED AT:[facility] [address] [id number] MERATI,MD 12/06/2023 7:52 AM EDT 12/06/2023 3:40 PM EDT Narrative [facility] - 12/11/2023 1:37 PM EDT SEE SCANNED RESULTS IN EMRWas previous PAP abnormal? UnknownClinical Information: routineCollection Date: 12/06/23igh risk HPV with 16 18 genotyping? NReflex HPV any abnormal diagnosis? NReflex HPV if ASCUS only? NHigh Risk HPV (any diagnosis)? [facility]: 12/05/23Date of previous PAP [id number] by: : cervical us Generic External Data Provider LAB PATHOLOGY ORD ERABLES Final Result [facility] [address] [place] [phone] * HPV mRNA E6/E7 w/Reflex to HPV Genotypes 16, 18/45 (10/10/2023 11:39 AM EDT) HPV nRNA E6/E7 Not Detected Not Detected [facility] Comment:Methodology: Transcr iption-Mediated AmplificationThis assay detects E6/E7 viral messenger RNA (mRNA) from 14high-risk HPV types (16,18,31,33,35,39,45,51,52,56,58,59,66,68).Cervical sources are required for HPV testing.If a vaginal source from a patient who has had atotal hysterectomy with removal of cervix wassubmitted, please contact the testing laboratoryfor alternative testing options.For additional information, please refer [email or web address].[employer]/faq/ZGC875k7(This link if provided for information/educational purposes only.)THIS TEST WAS PERFORMED AT:[facility] [place] [phone] SANCHEZ MD HPV mRNA E6/E7 [facility] HPV 16 RNA [facility] HPV 18/45 RNA [facility] 10/10/2023 11:3 9 AM EDT 10/11/2023 8:00 AM EDT us Perlita Garza MD LAB CYTOLOGY ORDERABLES Fin al Result [facility] [address] [place] [phone] from Last 3 Months or Most Recently Relevant to Health Maintenance Insurance [facility] Care Teams Night Court Magistrate Relationship Specialty Start Date End Date Perlita Garza MD [address] [place] [address] DAVID [place]13 PCP - General Internal Medicine 03/04/18
--- OUTSIDE RECORDS SUMMARY | 2025-04-24 16:12 | XMS_ITS | Encounter Summary ---
Author Organization [employer] Address [address] [facility] 7t [place] [address] Care Team Providers Care Senior Mechanical Engineer Name Role Phone Perlita Garza MD Primary Care Provider [phone] Reason for Visit * Reason Comments Med Refill Encounter Details Date Type Department Care Team ([facility] st Contact Info) Description 06/05/2023 Refill [facility] [address] [place] [address] Alessio Rasheed MD [address] [place] [address] Acute otitis externa of right ear, unspecified [...] documented in this encounter Plan of Treatment Not on file documented as of this encounter Visit Diagnoses Diagnosis Acute otitis externa of right ear, unspecified type documented in this encounter Care Teams Senior Mechanical Engineer Relationship Specialty Start Date End Date Perlita Garza MD [address] [place] [phone] PCP - General Internal Medicine 03/04/18 documented as of this encounter
--- OUTSIDE RECORDS SUMMARY | 2025-04-24 16:12 | XMS_ITS | Encounter Summary ---
Author Organization [employer] Address [address] [place] [address] [address] [place] [address] Care Team Providers Care Level Vial Marker Name Role Phone Perlita Garza MD Primary Care Provider [phone]- [phone] Encounter Details Date Type Department Care Team ([facility] st Contact Info) Description 01/22/2024 Orders Only [facility] [address] [facility] [place], [place] [phone] Perlita Garza MD [address] [place] [address] Obesity (BMI 30-39.9) (Primary Dx) Social History [...] documented as of this encounter Care Teams Level Vial Marker Relationship Specialty Start Date End Date Perlita Garza MD [address] [place] [phone] PCP - General Internal Medicine 03/04/18 documented as of this encounter
--- OUTSIDE RECORDS SUMMARY | 2025-04-24 16:12 | XMS_ITS | Encounter Summary ---
Author Organization [employer] Address [address] [place] [address] 7 [place] [address] Care Team Providers Care Bean Sprout Grower Name Role Phone Perlita Garza MD Primary Care Provider [phone]- [phone] Reason for Visit * Reason Onset Date Comments Med Refill 03/03/2024 Encounter Details Date Type Department Care Team ([facility] st Contact Info) Description 03/03/2024 Refill [facility] [address] [facility] [place] [address] Perlita Garza MD [address] [place] [address] Chronic obstructive pulmonary disease, unspecified COPD type (CMS/HCC); Obesity (BMI 30-39.9) Social History Tobacco Use Types Packs/Day Years [...] as of this encounter Visit Diagnoses Diagnosis Chronic obstructive pulmonary disease, unspecified COPD type (CMS/HCC) ([facility]) Obesity (BMI 30-39.9) documented in this encounter Additional Health Concerns Assessment Noted Time PHQ-9 Depression Total Score: 0 07/26/19 24 1:55 PM EDT documented as of this encounter Care Teams Bean Sprout Grower Relationship Specialty Start Date End Date Perlita Garza MD [address] [place] [address] PCP - General Internal Medicine 03/04/18 documented as of this encounter
--- OUTSIDE RECORDS SUMMARY | 2025-04-24 16:12 | XMS_ITS | Encounter Summary ---
Author Organization [employer] Address [address] [place] [address] [address] [place] [address] Care Team Providers Care Forestry Worker Name Role Phone Perlita Garza MD Primary Care Provider [phone]- [phone] Encounter Details Date Type Department Care Team ([facility] st Contact Info) Description 12/10/2023 Orders Only [facility] 505 [facility] [place], [place] [phone] Perlita Garza MD [address] [place] [address] Obesity (BMI 30-39.9) (Primary Dx) Social History [...] documented as of this encounter Care Teams Forestry Worker Relationship Specialty Start Date End Date Perlita Garza MD [address] [place] [phone] PCP - General Internal Medicine 03/04/18 documented as of this encounter
--- OUTSIDE RECORDS SUMMARY | 2025-04-24 16:12 | XMS_ITS | Encounter Summary ---
Author Organization [employer] Address [address] [place] [address] [address] [place] [address] Care Team Providers Care Language Asst Name Role Phone Perlita Garza MD Primary Care Provider [phone]- [phone] Reason for Referral * Imaging (Routine) - Closed Specialty Diagnoses / Procedures Referred By Contac t Referred To Contact Radiology Diagnoses Elevated prolactin level Procedures Mr Brain w/ and w/o Contrast Perlita Garza MD [address] [place] [address] Phone: tel: fax: [address] [address] Phone: tel: fax: Referral ID Status Reason Start Date Expiration Date Visits Re quested Visits Authorized [id number] Closed 08/17/2023 08/16/2024 1 1 Encounter Details Date Type Department Care Team (Late st Contact Info) Description 08/17/2023 Orders Only [facility] [address] [place], [place] [phone] Perlita Garza MD [address] [place] [phone] Elevated prolactin level (Primary Dx) Social History Tobacco Use Types [...] Type Priority Associated Diagnoses Orde r Schedule Mr Brain w/ and w/o Contrast Imaging Routine Elevated prolactin level Expected: 08/17/2023, Expires: 08/16/2024 documented as of this encounter Visit Diagnoses Diagnosis Elevated prolactin level- Primary documented in this encounter Additional Health Concerns Assessment Noted Time PHQ-9 Depression Total Score: 0 07/26/19 24 1:55 PM EDT documented as of this encounter Care Teams Language Asst Relationship Specialty Start Date End Date Perlita Garza MD [address] [place] [phone] PCP - General Internal Medicine 03/04/18 documented as of this encounter
--- OUTSIDE RECORDS SUMMARY | 2025-04-24 16:12 | XMS_ITS | Data Portability ---
Author Organization [facility], [address] Address [address] [place] [address] Care Team Providers Care Manager Neonatal Name Role Phone [facility] Primary Care Provider [phone] Assessment No assessment recorded. Plan of Treatment Reminders Order Date Submit Date Provider Last Modified By Organization Details Last Modified Time Details Appointments None recorded. Lab None recorded. Referral None recorded. Procedures None recorded. Surgeries None recorded. Imaging None recorded. Medication Orders cyclobenzap rine 10 mg tablet 2022 023 [id number], [address] [facility] [place], [place], [id number], 10:03:09 Patient TargetsNo targets recorded. Patient Instructions Encounter Date Encounter Id Patient Instructions Last Modified By Organization Details Last Modified Time 11/12/2022 [id number] getting back to normal after low back pain: care instructions [email or web address] Not available 11/12/2022 10:03:00 Reason for Referral None Reported. Problems Name Problem SNOMED Code Status Onset Date Resolution Date Notes Provider Name and Address Organization Details Recorded Time Asthma 009080562 Active [facility] 11/12/2022 09:48:11 Problem [...] numeric rating [Score] - Reported Oxygen saturation Heart rate Respiratory rate Body temperature Systolic And Diastolic Provider Name and Address Organization Details Last Updated DateTime 3 167.64 cm 32.3 kg/m2 87230.4 7 g 8 100 % 63 /min 16 /min 97.5 [...] Influenza, split virus, quadrivalent, PF 2 completed Macry Ruszala null, [place] - [facility] 11/12/2022 09:46:33 Influenza, split virus, quadrivalent, PF 1 completed Marcy Ruszala null, [place] - [facility] 11/12/2022 09:46:33 Past Encounters Encounter ID Performer Location Encounter Start Date Encounter Closed Date Diagnosis/Indication Diagnosis SNOMED-CT Code Diagnosis ICD10 Code Diagnosis IMO Codes Diagnosis Note [id number] [address] [place] [address] 03/02/2020 09:25:16 03/02/2020 10:46:50 [id number] [address] [place] [address] 01/22/2017 10:56:01 01/22/2017 12:05:50 [id number] Surendra Pitts DO [address] [place] [address] 11/12/2022 08:21:16 11/12/2022 10:05:32 Low back pain 864223256 M54.50 Likely muscular originc/w NSAID. recommend alternate [...] Pineda Member ID Guarantor Name 12/16/2022 1 [place]: [facility] Christina Gonzalez [id number] Christina Gonzalez Notes Date Note Type Note Provider Name and Address Organization Details Recorded Time 11/12/2022 text/html Back Pain/Injury UCReported by [id number] yo female c/o LBP x 2 days started after bending over No numbness/tinglingNo weaknessNo foot dropNo saddle anesthesiaNo incontinenceNo traumaNo rash ROS as noted in the HPI Surendra Pitts DO [address] [place], [address], [place] - [facility] 11/12/2022 10:04:16 OBGyn Episode No OBEpisode recorded.
--- OUTSIDE RECORDS SUMMARY | 2025-04-24 16:12 | XMS_ITS | Encounter Summary ---
Author Organization [employer] Address [address] [place] [address] 7 [place] [address] Care Team Providers Care College Tutor Name Role Phone Perlita Garza MD Primary Care Provider [phone]- [phone] Reason for Visit * Reason Comments Med Refill Encounter Details Date Type Department Care Team ([facility] Contact Info) Description 04/05/2024 Refill [facility] CH[facility] MED & PEDS [address] [facility] [place] [address] Perlita Garza MD [address] [place] [address] Chronic obstructive pulmonary disease, unspecified COPD type [...] obstructive pulmonary disease, unspecified COPD type (CMS/HCC) ([facility]) Obesity (BMI 30-39.9) documented in this encounter Additional Health Concerns Assessment Noted Time PHQ-9 Depression Total Score: 0 07/26/19 24 1:55 PM EDT documented as of this encounter Care Teams College Tutor Relationship Specialty Start Date End Date Perlita Garza MD [address] [place] [address] PCP - General Internal Medicine 03/04/18 documented as of this encounter
--- OUTSIDE RECORDS SUMMARY | 2025-04-24 16:12 | XMS_ITS | Encounter Summary ---
Author Organization [employer] Address [address] [place] [address] 7 [place] [address] Care Team Providers Care Etcher Apprentice Photoengraving Name Role Phone Perlita Garza MD Primary Care Provider [phone]- [phone] Reason for Visit * Reason Comments Med Refill Encounter Details Date Type Department Care Team ([facility] Contact Info) Description 11/06/2023 Refill [facility] CHC MED & PEDS 505 [facility] [place] [address] Perlita Garza MD [address] [place] [address] Obesity (BMI 30-39.9) Social History Tobacco Use [...] this encounter Visit Diagnoses Diagnosis Obesity (BMI 30-39.9) documented in this encounter Additional Health Concerns Assessment Noted Time PHQ-9 Depression Total Score: 0 07/26/19 24 1:55 PM EDT documented as of this encounter Care Teams Etcher Apprentice Photoengraving Relationship Specialty Start Date End Date Perlita Garza MD [address] [place] [address] PCP - General Internal Medicine 03/04/18 documented as of this encounter
== END 2025-04-24 16:10 | disposition home or self-care (01) ==
LOC: HO.US 16:09
PROVIDERS: PCP Internal Medicine; Visit Provider Obstetrics & Gynecology
DX: N83.299 Other ovarian cyst, unspecified side (principal)
CPT/HCPCS: 76830; 76856

== ENCOUNTER → 2025-04-24 16:11 | Outpatient (BNV) | payer OTHER, SELFPAY | PROVIDERS: PCP Internal Medicine; Visit Provider Radiology Diagnostic Radiology | DX: N83.01 Follicular cyst of right ovary (principal) | CPT/HCPCS: 76830; 76856 ==

== ENCOUNTER 2025-04-26 17:24 | Emergency (ER) | payer OTHER, SELFPAY ==
--- NOTE | ~2025-04-26 | CT_ITS ---
CLINICAL HISTORY: Right lower quadrant right hip pain vomiting CT abdomen and pelvis with contrast Comparison: Ultrasound of the pelvis from 10/06/2024 Findings: Mild bibasilar atelectasis and scarring. Borderline cardiomegaly. Fat deposition noted in the liver. Gallbladder wall thickening, pericholecystic fluid, and cholelithiasis are concerning for cholecystitis. Adrenal glands and pancreas partly obscured and otherwise unremarkable. Splenomegaly with spleen measuring 14 cm. Mild to moderate right-sided hydroureteronephrosis with 6 mm stone in the midportion of the right ureter. No left-sided hydronephrosis. Bilateral perinephric stranding, right worse than left. Additional fluid noted including adjacent to right ureter. Mild wall thickening of the mildly distended urinary bladder. Small retroperitoneal lymph nodes likely reactive. No small bowel obstruction. Small hiatal hernia. Severe stool burden present, including the cecum. Imaged appendix within normal limits (61 of series 3). Uterus is anteverted with intrauterine device in place. No adnexal soft tissue mass by CT. Mild free fluid in the pelvis nonspecific and may be reactive. Degenerative changes of the pubic symphysis, hips, SI joints, and spine. Facet arthropathy is multifocal. Vacuum disc phenomenon including L4-L5 and L5-S1. IMPRESSION: 1. 6 mm stone in the midportion of the right ureter with mild-moderate right-sided hydroureteronephrosis. 2. Gallbladder wall thickening, pericholecystic fluid, and cholelithiasis are concerning for cholecystitis. This document has been electronically signed by: Royce Selby MD on 04/26/2025 21:04:28
[2025-04-26 17:28] VITALS: BP 142/78; PULSE 64; O2SAT 100
[2025-04-26 17:34] VITALS: BP 133/70; PULSE 64; RESP 18; TEMP 34.6; O2SAT 100; BMI 28.2
--- OUTSIDE RECORDS SUMMARY | 2025-04-26 17:55 | XMS_ITS | Encounter Summary ---
Author Organization [employer] Address [address] [facility] 7t [place] [address] Care Team Providers Care Mechanical Integrity Specialist Name Role Phone Perlita Garza MD Primary Care Provider [phone] Reason for Visit * Reason Comments Med Refill Encounter Details Date Type Department Care Team ([facility] st Contact Info) Description 06/05/2023 Refill [facility] [address] [place] [address] Alessio Rasheed MD [address] [place] [address] Acute otitis externa of right ear, unspecified [...] 06/06/2023 8:11 PM EST Please have Ms Gonzalze schedule an appointment. documented in this encounter Plan of Treatment Not on file documented as of this encounter Visit Diagnoses Diagnosis Acute otitis externa of right ear, unspecified type documented in this encounter Care Teams Mechanical Integrity Specialist Relationship Specialty Start Date End Date Perlita Garza MD [address] [place] [address] PCP - General Internal Medicine 03/04/18 documented as of this encounter
--- OUTSIDE RECORDS SUMMARY | 2025-04-26 17:55 | XMS_ITS | Encounter Summary ---
Author Organization [employer] Address [address] [place] [address] [place] [address] Care Team Providers Care Ship'S Engineer Name Role Phone Perlita Garza MD Primary Care Provider [phone] Reason for Referral * Imaging (Routine) - Canceled Specialty Diagnoses / Procedures Referred By Danny jaeger Referred To Contact Radiology Diagnoses Hyperprolactinemia (CMS/HCC) Procedures MR PITUITARY AND BRAIN, WITH AND WITHOUT Perlita Garza MD [address] [place] [address] Phone: tel: fax: [address] [address] Phone: tel: fax: Referral ID Status Reason Start Date Expiration Date V isits Requested Visits Authorized [id number] Canceled 08/01/2023 07/31/2024 1 1 * Consultation (Routine) - Closed Specialty Diagnoses / Procedures Referred By Danny jaeger Referred To Contact Endocrinology Diagnoses Hyperprolactinemia (CMS/HCC) Perlita Garza MD [address] [place] [address] Phone: tel: fax: [facility] Endocrinology [address] [place], [place] Phone: tel: fax: Referral ID Status Reason Start Date Expiration Date V isits Requested Visits Authorized [id number] Closed Specialty Services Required 07/27/2023 07/26/2024 1 1 Encounter Details Date Type Department Care Team (Latest Contact Info) Description 07/27/2023 Orders Only [facility] CHC MED & PEDS [address] [place] [address] Perlita Garza MD [address] [place] [address] Hyperprolactinemia (CMS/HCC) (Primary Dx) Social History Tobacco [...] BRAIN, WITH AND WITHOUT Imaging Routine Hyperprolactinemia ([facility]/HCC) Expected: 08/01/2023, Expires: 07/31/2024 Scheduled Referrals Name Type Priority Associated Diagnoses Order Schedule Referral to Endocrinology Outpatient Referral Routine Hyperprolactinemia (CMS/HCC) Expected: 07/27/2023 (Approximate), Expires: 07/26/2024 documented as of this encounter Visit Diagnoses Diagnosis Hyperprolactinemia (CMS/[facility])- Primary Other and unspecified anterior pituitary hyperfunction documented in this encounter Additional Health Concerns Assessment Noted Time PHQ-9 Depression Total Score: 0 07/26/19 24 1:55 PM EDT documented as of this encounter Care Teams Ship'S Engineer Relationship Specialty Start Date End Date Perlita Garza MD [address] [place] [address] PCP - General Internal Medicine 03/04/18 documented as of this encounter
--- OUTSIDE RECORDS SUMMARY | 2025-04-26 17:55 | XMS_ITS | Encounter Summary ---
Author Organization [employer] Address [address] [place] [address] 7 [place] [address] Care Team Providers Care Interactive Developer Name Role Phone Perlita Garza MD Primary Care Provider [phone] Reason for Visit * Reason Onset Date Comments Med Refill 03/03/2024 Encounter Details Date Type Department Care Team ([facility] st Contact Info) Description 03/03/2024 Refill [facility] CHC MED & PEDS [address] [facility] [place] [address] Perlita Garza MD [address] [place] [address] Chronic obstructive pulmonary disease, unspecified COPD type [...] pulmonary disease, unspecified COPD type (CMS/HCC) ([facility]) Obesity (BMI 30-39.9) documented in this encounter Additional Health Concerns Assessment Noted Time PHQ-9 Depression Total Score: 0 07/26/19 24 1:55 PM EDT documented as of this encounter Care Teams Interactive Developer Relationship Specialty Start Date End Date Perlita Garza MD [address] [place] [address] PCP - General Internal Medicine 03/04/18 documented as of this encounter
--- OUTSIDE RECORDS SUMMARY | 2025-04-26 17:55 | XMS_ITS | Data Portability ---
Author Organization [facility], [address] Address [address] [place] [address] Care Team Providers Care Flight Attendant Inflight Services Name Role Phone [facility] Primary Care Provider Assessment No assessment recorded. Plan of Treatment Reminders Order Date Submit Date Provider Last Modified By Organization Details Last Modified Time Details Appointments None recorded. Lab None recorded. Referral None recorded. Procedures None recorded. Surgeries None recorded. Imaging None recorded. Medication Orders cyclobenzap rine 10 mg tablet 2022 023 [facility][id number], [address] [facility] [place], [place], [id number], 10:03:09 Patient TargetsNo targets recorded. Patient Instructions Encounter Date Encounter Id Patient Instructions Last Modified By Organization Details Last Modified Time 11/12/2022 [id number] getting back to normal after low back pain: care instructions [email or web address] Not available 11/12/2022 10:03:00 Reason for Referral None Reported. Problems Name Problem SNOMED Code Status Onset Date Resolution Date Notes Provider Name and Address Organization Details Recorded Time Asthma 374350144 Active [facility] 11/12/2022 09:48:11 Problem [...] Updated DateTime 3 167.64 cm 32.3 kg/m2 66244.4 7 g 8 100 % 63 /min [...] ICD10 Code Diagnosis IMO Codes Diagnosis Note [id number] [address] [place] [address] 03/02/2020 09:25:16 03/02/2020 10:46:50 [id number] [address] [address] [place] [address] 01/22/2017 10:56:01 01/22/2017 12:05:50 [id number] Surendra Pitts DO [address] [place] [address] 11/12/2022 08:21:16 11/12/2022 10:05:32 Low back pain 113755449 M54.50 Likely muscular originc/w NSAID. recommend alternate [...] Pineda Member ID Guarantor Name 12/16/2022 1 [place] [facility] Christina Gonzalez [id number] Christina Gonzalez Notes Date Note Type Note Provider Name and Address Organization Details Recorded Time 11/12/2022 text/html Back Pain/Injury UCReported by [id number] yo female c/o LBP x 2 days started after bending over No numbness/tinglingNo weaknessNo foot dropNo saddle anesthesiaNo incontinenceNo traumaNo rash ROS as noted in the HPI Surendra Pitts DO [address] [place], [address], [place] - [facility] 11/12/2022 10:04:16 OBGyn Episode No OBEpisode recorded.
--- OUTSIDE RECORDS SUMMARY | 2025-04-26 17:55 | XMS_ITS | Encounter Summary ---
Author Organization [employer] Address [address] [facility] 7 [place] [address] Care Team Providers Care Tape Calender Name Role Phone Perlita Garza MD Primary Care Provider [phone] Encounter Details Date Type Department Care Team ([facility] st Contact Info) Description 03/10/2024 Orders Only [facility] CHC MED & PEDS [address] [place] [address] Perlita Garza MD [address] [place] [address] Social History Tobacco Use Types Packs/Day Years [...] documented as of this encounter Care Teams Tape Calender Relationship Specialty Start Date End Date Perlita Garza MD [address] [place] [address] PCP - General Internal Medicine 03/04/18 documented as of this encounter
--- OUTSIDE RECORDS SUMMARY | 2025-04-26 17:55 | XMS_ITS | Encounter Summary ---
Author Organization [employer] Address [address] [place] [address] 7 [place] [address] Care Team Providers Care Pipe Supervisor Name Role Phone Perlita Garza MD Primary Care Provider [phone]- [phone] Reason for Referral * Imaging (Routine) - Closed Specialty Diagnoses / Procedures Referred By Contac t Referred To Contact Radiology Diagnoses Elevated prolactin level Procedures Mr Brain w/ and w/o Contrast Perlita Garza MD [address] [place] [address] Phone: tel: fax: [address] [address] Phone: tel: fax: Referral ID Status Reason Start Date Expiration Date Visits Re quested Visits Authorized [id number] Closed 08/17/2023 08/16/2024 1 1 Encounter Details Date Type Department Care Team (Late st Contact Info) Description 08/17/2023 Orders Only [facility] CHC MED & PEDS [address] [place], [place] [phone] Perlita Garza MD [address] [place] [phone] Elevated prolactin level (Primary Dx) Social History [...] documented as of this encounter Care Teams Pipe Supervisor Relationship Specialty Start Date End Date Perlita Garza MD [address] [place] [address] PCP - General Internal Medicine 03/04/18 documented as of this encounter
--- OUTSIDE RECORDS SUMMARY | 2025-04-26 17:55 | XMS_ITS | Encounter Summary ---
Author Organization [employer] Address [address] [place] [address] 7 [place] [address] Care Team Providers Care Dry Cleaning Machine Operator Name Role Phone Perlita Garza MD Primary Care Provider [phone]- [phone] Encounter Details Date Type Department Care Team ([facility] st Contact Info) Description 10/11/2023 Orders Only [facility] CHC MED & PEDS [address] [facility] [place] [address] Perlita Garza MD [address] [place] [address] Obesity (BMI 30-39.9) (Primary Dx) Social History [...] documented as of this encounter Care Teams Dry Cleaning Machine Operator Relationship Specialty Start Date End Date Perlita Garza MD [address] [place] [address] PCP - General Internal Medicine 03/04/18 documented as of this encounter
--- OUTSIDE RECORDS SUMMARY | 2025-04-26 17:55 | XMS_ITS | Encounter Summary ---
Author Organization [employer] Address [address] [place] [address] 7 [place] [address] Care Team Providers Care Key Sander Name Role Phone Perlita Garza MD Primary Care Provider [phone]- [phone] Reason for Visit * Reason Comments Med Refill Encounter Details Date Type Department Care Team ([facility] Contact Info) Description 11/06/2023 Refill [facility] CHC MED & PEDS [address] [facility] [place] [address] Perlita Garza MD [address] [place] [address] Obesity (BMI 30-39.9) Social History Tobacco Use [...] documented as of this encounter Care Teams Key Sander Relationship Specialty Start Date End Date Perlita Garza MD [address] [place] [address] PCP - General Internal Medicine 03/04/18 documented as of this encounter
--- OUTSIDE RECORDS SUMMARY | 2025-04-26 17:55 | XMS_ITS | Encounter Summary ---
Author Organization [employer] Address [address] [place] [address] 7 [place] [address] Care Team Providers Care Speedboat Driver Name Role Phone Perlita Garza MD Primary Care Provider +[phone]- [phone] Encounter Details Date Type Department Care Team ([facility] st Contact Info) Description 01/22/2024 Orders Only [facility] CHC MED & PEDS 505 [facility] [place], [place] [phone] Perlita Garza MD [address] [place] [address] Obesity (BMI 30-39.9) (Primary Dx) Social History [...] documented as of this encounter Care Teams Speedboat Driver Relationship Specialty Start Date End Date Perlita Garza MD [address] [place] [address] PCP - General Internal Medicine 03/04/18 documented as of this encounter
--- OUTSIDE RECORDS SUMMARY | 2025-04-26 17:55 | XMS_ITS | Clinical Summary ---
Author Organization [employer] Address [address] [facility] 7[address] [place] [address] Care Team Providers Care Product Safety Consultant Name Role Phone Perlita Garza MD Primary [...] Description 04/17/2025 9:30 AM EST Clinical Support [facility] [address] [place] [address] Audrey Parker RN Encounter for immunization 04/17/2025 Travel 04/10/2025 Travel 01/29/2025 Refill [facility] [address] [place] [address] Mini Shrestha MD from Last 3 Months [...] AM EDT Narrative 11/18/2024 8:47 PM EDT [facility] [address] [place] [address] Mammography Report Signed Patient: Christina Gonzalez MR#: [id number] 2 : 1980 Acct:[id number] Age/Sex: 44 / F ADM Date: 11/06/24 Loc: HO.MAMMO Attending Dr: Kunal Bales MD Ordering Physician: Kunal Bales MD Results: 1Negativ e Date of Service: 11/06/24 Follow Up: 1 Year From Orig ina Mammogram Procedure(s): MM tomosynthesis screening BI Accession Number(s): [id number] cc: Perlita Garza MD; Kunal Bales MD [...] OV> 11/18/242043 DD/ 0847 TD/TT: 11/06/24 0906 Pumper Helper: Procedure Note Donotuseinterpreter, Image - 11/18/2024 [facility] [address] [place] [address] Mammography Report Signed Patient: Radha Gonzalez#: [id number] 2 : 1980Acct:[id number] Age/Sex: 44 / FADM Date: 11/06/24 Loc: HO.MAMMO Attending Dr: Kunal Bales MD Ordering Physician: Kunal Bales MDResults: 1Negativ e Date of Service: 11/06/24Follow Up: 1 Year From Orig inal Mammogram Procedure(s): MM tomosynthesis screening BI Accession Number(s): [id number] cc: Perlita Garza MD; Kunal Bales MD [...] Pathak MD 11/18/2024 08:44 PM EDT Workstation: [id number] Dictated By: Vijay Pathak MD Signed By: <Electronically signed by Vijay Pathak MD in OV> 11/18/242043 DD/ 0847 TD/TT: 11/06/24 0906 Pumper Helper: [facility] External Provider IMG BI PROCEDURES Final Result * Hepatitis C Antibody with Reflex to HCV, RNA, Quantitative, Real-Time PCR (10/23/2024 11:50 AM EDT) Hepatitis C Antibody Nonreactive Nonreactive [facility] Comment:Antibodies to HCV no t detected; does not exclude early acuteHCV infection. Blood Venous blood specimen / Unknown 10/23/2024 11:50 AM EDT 10/23/2024 2:24 PM EDT Perlita Garza MD LAB BLOOD ORDERABLES Final Result [facility] [address] [place] [phone] * HIV-1/2 Antigen and Antibodies, Fourth Generation, with Reflexes (10/23/2024 11:50 AM EDT) HIV AB/AG Nonreactive Nonreactive [facility] Comment:HIV-1 p24 Ag and/or HIV-1/HIV-2 Ab not detected.A test result that is nonreactive does not exclude thepossibility of exposure to or infection with HIV-1 and/orHIV-2. Nonreactive results in this assay for individualswith prior exposure to HIV-1 and/or HIV-2 may be due toantigen and antibody levels that are below the limit ofdetection of this assay.The ChowNow HIV Ag/Ab Combo assay result andsupplemental assay results should be interpreted inconjunction with the patient's clinical presentation,history and other laboratory results. If the results areinconsistent with clinical evidence, additional testing issuggested to confirm the result. Blood Venous blood specimen / Unknown 10/23/2024 11:50 AM EDT 10/23/2024 2:24 PM EDT us Perlita Garza MD LAB BLOOD ORDERABLES Final Result Performing Organization Address [facility] Co de Phone Number [facility] [address] [place] [phone] * (ABNORMAL) Lipid Panel, Standard (10/23/2024 11:50 AM EDT) Triglycerides 81 <150 mg/dL [facility] Comment:Desirable Triglyceri de: less than 150 mg/dLBorderline High Triglyceride 150-199 mg/dLHigh Triglyceride: 200-499 mg/dLVery High Triglyceride: greater than or equal to 5OO mg/dL Cholesterol 173 <200 mg/dL [facility] Comment:Desirable Cholestero l: less than 200 mg/dLBorderline High Cholesterol: 200-239 mg/dLHigh Cholesterol: greater than 239 mg/dL LDL Cholesterol Calculated 103(H) <100 mg/dL [facility] Comment:Desirable LDL: less than 100 mg/dLNear Optimal/Above Optimal LDL: 110- 129 mg/dLBorderline High LDL: 130-159 mg/dLHigh LDL: 160-189 mg/dLVery High LDL: greater than or equal to 190 mg/dL HDL Cholesterol 54 >40 mg/dL [facility] Comment:Desirable HDL: great er than 40 mg/dL Note: This HDL assay may give artificially low results in patients with liver disease. Blood Venous blood specimen / Unknown 10/23/2024 11:50 AM EDT 10/23/2024 2:24 PM EDT us Perlita Garza MD LAB BLOOD ORDERABLES Final Result [facility] [address] [place] [phone] * ThinPrep Imaging System Pap (12/06/2023 7:52 AM EDT) SOURCE: SEE NOTE [facility] Comment:None given Report Status: TNP [facility] Clinical Information: SEE NOTE [facility] Comment:None given LMP: SEE NOTE [facility] Comment:NONE GIVEN Prev. PAP: SEE NOTE [facility] Comment:NONE GIVEN Prev. BX: SEE NOTE [facility] Comment:NONE GIVEN Statement Of Adequacy: SEE NOTE [facility] Comment:Satisfactory for felicia luation.Endocervical/transformation zone componentpresent. General Categorization: CTP [facility] Interpretation/Result: SEE NOTE [facility] Comment:Cytology Results: Ne gative for intraepitheliallesion or malignancy. Cytology Comment SEE NOTE [facility] Comment:This Pap test has be en evaluated with computerassisted technology. Railroad Wheels And Axle Inspector: SEE NOTE [facility] Comment:DMK, CT(ASCP)CT scre ening location: [facility] [address] preparation performed at: [facility] [address] CLIA No. [id number] Review [employer] Axle Inspector: CTP [facility] Pathologist [facility] PAP Infection [facility] See Note SEE NOTE [facility] Comment:EXPLANATORY NOTE:The Pap is a screening test for cervical cancer. It isnot a diagnostic test and is subject to false negativeand false positive results. It is most reliable when asatisfactory sample, regularly obtained, is submittedwith relevant clinical findings and history, and whenthe Pap result is evaluated along with historic andcurrent clinical information.THIS TEST WAS PERFORMED AT:[employer] [address] [phone] MERATI,MD 12/06/2023 7:52 AM EDT 12/06/2023 3:40 PM EDT Narrative [facility] - 12/11/2023 1:37 PM EDT SEE SCANNED RESULTS IN EMRWas previous PAP abnormal? UnknownClinical Information: routineCollection Date: 12/06/23igh risk HPV with 16 18 genotyping? NReflex HPV any abnormal diagnosis? NReflex HPV if ASCUS only? NHigh Risk HPV (any diagnosis)? [facility]23Date of previous PAP [id number] by: : cervical us Generic External Data Provider LAB PATHOLOGY ORD ERABLES Final Result [facility] [address] [place] [phone] * HPV mRNA E6/E7 w/Reflex to HPV Genotypes 16, 18/45 (10/10/2023 11:39 AM EDT) HPV nRNA E6/E7 Not Detected Not Detected [facility] Comment:Methodology: Transcr iption-Mediated AmplificationThis assay detects E6/E7 viral messenger RNA (mRNA) from 14high-risk HPV types (16,18,31,33,35,39,45,51,52,56,58,59,66,68).Cervical sources are required for HPV testing.If a vaginal source from a patient who has had atotal hysterectomy with removal of cervix wassubmitted, please contact the testing laboratoryfor alternative testing options.For additional information, please refer [email or web address].DDRdrive/faq/HOO659r5(This link if provided for information/educational purposes only.)THIS TEST WAS PERFORMED AT:[facility] [place] [phone] SANCHEZ MD HPV mRNA E6/E7 [facility] HPV 16 RNA [facility] HPV 18/45 RNA [facility] 10/10/2023 11:3 9 AM EDT 10/11/2023 8:00 AM EDT us Perlita Garza MD LAB CYTOLOGY ORDERABLES Fin al Result [facility] [address] [place] [phone] from Last 3 Months or Most Recently Relevant to Health Maintenance Insurance [facility] Care Teams Product Safety Consultant Relationship Specialty Start Date End Date Perlita Garza MD [address] [place] [address] [place] PCP - General Internal Medicine 03/04/18
--- OUTSIDE RECORDS SUMMARY | 2025-04-26 17:55 | XMS_ITS | Encounter Summary ---
Author Organization [employer] Address [address] [place] [address] [address] [place] [address] Care Team Providers Care Transitional Kindergarten Teacher Name Role Phone Perlita Garza MD Primary Care Provider [phone] Encounter Details Date Type Department Care Team ([facility] st Contact Info) Description 12/10/2023 Orders Only [facility] [address] [facility] [place], [place] [phone] Perlita Garza MD [address] [place] [address] Obesity (BMI 30-39.9) (Primary Dx) Social History [...] documented as of this encounter Care Teams Transitional Kindergarten Teacher Relationship Specialty Start Date End Date Perlita Garza MD [address] [place] [phone] PCP - General Internal Medicine 03/04/18 documented as of this encounter
--- OUTSIDE RECORDS SUMMARY | 2025-04-26 17:55 | XMS_ITS | Encounter Summary ---
Author Organization [employer] Address [address] [place] [address] [address] [place] [address] Care Team Providers Care Cab Driver Name Role Phone Perlita Garza MD Primary Care Provider [phone]- [phone] Reason for Visit * Reason Comments Med Refill Encounter Details Date Type Department Care Team ([facility] Contact Info) Description 04/05/2024 Refill [facility] [address] [facility] [place] [phone] Perlita Garza MD [address] [place] [address] Chronic obstructive pulmonary disease, unspecified COPD type [...] documented as of this encounter Care Teams Cab Driver Relationship Specialty Start Date End Date Perlita Garza MD [address] [place] [phone] PCP - General Internal Medicine 03/04/18 documented as of this encounter
--- NOTE | 2025-04-26 18:00 | ED.GENADULT ---
HPI - General Adult General Chief complaint: Abdominal Pain Stated complaint: LRQ pain Time Seen by Provider: 04/26/25 17:32 Source: patient Mode of arrival: ambulatory Limitations: no limitations History of Present Illness ED Provider: Waylon Luu HPI narrative: 44-year-old female presents to ED for RLQ/right hip pain with nausea and vomiting that began todayl. patient states no diarrhea or symptoms. Related Data Home Medications ?Medication ?Instructions ?Recorded ?Confirmed albuterol sulfate 90 mcg/actuation 2 puff inhalation Q4-6H PRN yes 01/12/22 11/16/23 aerosol inhaler (ProAir HFA) Previous Rx's ?Medication ?Instructions ?Recorded fluticasone 500 mcg-salmeterol 50 1 ea inhalation Q12H #60 ea 11/20/24 mcg/dose blistr powdr for inhalation (Advair Diskus) naproxen 500 mg tablet 500 mg PO BID PRN pain #14 tabs 04/26/25 oxycodone 5 mg capsule 5 mg PO Q8H PRN pain #9 caps 04/26/25 prednisone 20 mg tablet 40 mg (2 x 20 mg) PO DAILY 5 days 04/26/25 #10 tabs tamsulosin 0.4 mg capsule 0.4 mg PO DAILY #7 caps 04/26/25 Allergies Allergy/AdvReac Type Severity Reaction Status Date / Time No Known Allergies Allergy Mild NOT Verified 04/26/25 17:36 APPLICABLE Review of Systems Review of Systems: Right lower quadrant right hip pain Yes all other systems are reviewed and are negative [facility] Past Medical History Medical History Asthma Family History Family History Mother Diabetes Social History Social History Household Members: Spouse and Children Housing: House Alcohol intake: former Comment: social Patient Tobacco Use Status: Former Tobacco user Tobacco use type: Cigarette Years Smoked: 10 Substance Use Type: Marijuana service: No Current occupational status: employed Current occupation: [employer] Sexual orientation: Straight/Heterosexual Gender identity: Female Physical Exam ED Vital Signs: Vital Signs - 24 hr 04/27/25 00:08 Temperature 97.6 F Pulse Rate 86 Respiratory Rate 16 Blood Pressure 118/73 Pulse Oximetry 99 Oxygen Delivery Method Room Air BMI result Body Mass Index 28.2 Const General: cooperative, healthy appearing, comfortable, no acute distress, well developed, alert, awake and Physically active Orientation/consciousness: patient oriented x3 [facility] Head: Yes normal to inspection, Yes No palpable skull fracture present and Yes normocephalic Eyes General: appearance normal, both eyes and all related structures Neck Neck: Yes normal visual inspection, Yes full ROM, Yes no lymphadenopathy, Yes no meningeal signs, Yes trachea midline, Yes supple, No anterior neck swelling and No tender Chest Chest palpation & inspection: normal inspection of the chest and normal palpation of entire chest wall Resp Effort & Inspection: normal respiratory effort and able to speak in complete sentences Auscultation: clear to auscultation bilaterally Cardio Jugular venous distension: no JVD Heart sounds: S1 normal heart sound present and S2 normal heart sound present GI Inspection: Yes normal to inspection Palpation (GI): Soft to palpation, not firm, Tenderness to palpation present (GI) in the RLQ, no guarding and not rigid General: Yes no CVA tenderness Back/Spine/Pelvis Back: no CVA tenderness and No back tenderness Skin General skin exam: no rashes or lesions noted, elasticity normal and turgor normal Neuro General: patient oriented x3, gait normal, tone normal, moves all extremities, Normal light touch and pain sensation, no meningeal signs, CN's II-XI intact bilaterally and normal sensation to monofilament Extrem General: Yes normal to inspection, Yes full ROM and Yes capillary refill normal Upper/lower leg/hip images:  1. Positive for tenderness on palpation. Negative for crepitus, ecchymosis, deformity erythema, red streaks, pus discharge, foul odor, hotness, or coldness. Rest of extremity normal. Motor neurovascular exam and Psych Appearance: grossly normal, well kempt and not disheveled Course Course Course Narrative: [age] year female with right lower quadrant right hip pain that began suddenly around 20:00. We will order labs pain medication. Medications Administered Discontinued Medications Generic Name Dose Route Start Last Admin Trade Name Freq PRN Reason Stop Dose Admin Sodium Chloride 1,000 mls @ 999 mls/hr 04/26/25 17:45 04/26/25 19:09 Ns IV 04/26/25 18:45 Infused .Q1H1M STA Infusion Iohexol 85 ml 04/26/25 19:42 04/26/25 19:47 Iohexol 350 Mg/Ml 100 Ml Infus..Btl IV 04/26/25 19:43 85 ml ONCE ONE Administration Morphine Sulfate 4 mg 04/26/25 18:08 04/26/25 18:17 Morphine Sulfate 4 Mg/Ml Cartridge IVPUSH 04/26/25 18:09 4 mg ONCE ONE Administration Protocol Ondansetron HCl 4 mg 04/26/25 17:45 04/26/25 18:08 Ondansetron Hcl 4 Mg/2 Ml Vial IVPUSH 04/26/25 17:46 4 mg ONCE ONE Administration Medical Decision Making Medical Decision Making [facility] Narrative: 44 year female presents to ED for right-sided lower quadrant right hip pain. Patient was given morphine for pain. Cat scan shows cholecystitis with also right 6 mm ureter stone with hydronephrosis. Negative for elevated white blood cell count. Liver enzymes normal. Case was discussed with surgeon Dr. Roberts who does not believe patient is having cholecystis and beleives it just edema from hydronephrosis. He examined patient's abdomen and stated it was soft and benign nontender. patient has passed p.o. challenge he states patient can be discharged follow-up outpatient. Spoke with Dr. Somers patient does not have any pain no signs of infection or PRICILLA pain patient will able to be discharged with pain med steroids and Flomax. Recommend outpatient treatment. Differential Diagnosis Differential Diagnoses: The differential diagnosis associated with the presentation includes (kidney stones, UTI, appendicitis) Admission/Observation Consideration of admission/observation: Escalation of care including admission/observation considered Lab Data [facility] Lab Attestation statement: I reviewed the patient's lab results. 04/26/25 17:59 04/26/25 17:59 Labs: Lab Results 04/26/25 04/26/25 Range/Units 17:59 18:59 WBC 9.1 (4.8-10.8) X10*3/uL RBC 4.82 (4.20-5.50) X10*6/uL Hgb 12.9 (12.0-16.0) g/dl Hct 39.3 (37.0-47.0) % MCV 81.5 (80.0-98.0) fL MCH 26.8 L (27.0-33.0) pg MCHC 32.8 (31.0-35.0) g/dl RDW 12.3 (11.0-16.0) % Plt Count 147 L (160-400) X10*3/uL MPV 11.1 (9.4-12.3) fL Immature Gran % (Auto) 0.4 (0.0-0.4) % Neut % (Auto) 90.8 H (45-73) % Lymph % (Auto) 5.8 L (20-40) % [place] % (Auto) 2.4 (2-11) % Eos % (Auto) 0.2 (0-4) % Baso % (Auto) 0.4 (0-2) % Lymph # (Auto) 0.5 L (1.2-4.9) X10*3/uL [place] # (Auto) 0.2 (0.1-1.2) X10*3/uL Eos # (Auto) 0.0 (0.0-0.4) X10*3/uL Baso # (Auto) 0.0 (0.0-0.2) X10*3/uL Abs Immat Gran (auto) 0.04 H (0.00-0.03) X10*3/uL Absolute Neuts (auto) 8.2 (2.0-8.3) x10*3/uL Absolute Nucleated RBC 0.000 (0.0-0.012) X10*3/uL Nucleated RBC % (auto) 0.0 (0.0-0.2) /100WBC Smear Tech's Comments VERIFIED Sodium 143 (135-145) mmol/L Potassium 4.0 (3.3-5.1) mmol/L Chloride 109 H (96-108) mmol/L Carbon Dioxide 27 (22-29) mmol/L Anion Gap 11 L (12-20) BUN 10 (9-16) mg/dL Creatinine 0.63 (0.5-1.4) mg/dL Estim Creat Clear Calc 125.2 Estimated GFR > 60 Random Glucose 114 (60-115) mg/dL Calcium 8.8 (8.4-10.2) mg/dL Total Bilirubin 0.4 (0.0-1.0) mg/dL AST 18 (5-31) U/L ALT 12 (0-31) U/L Alkaline Phosphatase 66 (39-117) U/L Total Protein 7.5 (6.5-8.0) g/dL Albumin 4.5 (3.5-5.0) g/dL Lipase 98 H (8-78) U/L Beta HCG, Quant < 2 mIU/mL Urine Color Yellow Urine Appearance Turbid Urine pH >= 9.0 (5.0-9.0) Ur Specific Bronson 1.015 (1.005-1.025) Urine Protein Trace (Neg-Trace) mg/dL Urine Glucose (UA) Negative (Negative) mg/dL Urine Ketones Negative (Negative) mg/dL Urine Blood Large (3+) H (Negative) Urine Nitrite Negative (Negative) Ur Leukocyte Esterase Trace H (Negative) Urine RBC >20 H (0-2) /HPF Urine WBC 0-5 (0-5) /HPF Ur Squamous Epith Cells 0-2 (0-2) /HPF Urine Bacteria None Seen (None Seen) Hyaline Casts 0-2 (0-2) /LPF Independent Interpretation I performed an independent interpretation of an: CT Scan Radiology Impression Discussion of test interpretation with radiology: I have reviewed the radiologist's reading. Prescription Management I considered prescription management with: Pain Medication Critical Care Time Critical Care Time Critical Care Time: Yes Total Critical Care Time: 60 Attestation: Morphine, IV fluids, CT scan Surgery and Urology Consult Discharge Plan Discharge Clinical Impression: Calculus, ureteral, Kidney stone Patient Disposition: Home, Self-Care Instructions: Kidney Stones (ED), Ureteral Stones (ED) Additional Instructions: recommend follow up with outpatient primary care and urology. Our on-call surgeon Dr. Roberts that is not believe you have cholecystitis and believe your symptoms are more due to your kidney stone with hydronephrosis. He recommends outpatient follow-up. Return to the ED immediately for any abdominal pain, nausea, vomiting, flank pain, fever, chills, dysuria, hematuria, chest pain, shortness of breath, or any other concerning symptoms. Ordering Physician: Waylon Luu Date of Service: 04/26/25 Procedure(s): CT abdomen pelvis w IV con Accession Number(s): [id number] cc: Waylon Luu; Perlita Garza MD~ Report Number: [id number]: Total DLP = 630.00 mGy-cm Reason for Exam: Right lower quadrant right hip pain vomiting CLINICAL HISTORY: Right lower quadrant right hip pain vomiting CT abdomen and pelvis with contrast Comparison: Ultrasound of the pelvis from 10/06/2024 Findings: Mild bibasilar atelectasis and scarring. Borderline cardiomegaly. Fat deposition noted in the liver. Gallbladder wall thickening, pericholecystic fluid, and cholelithiasis are concerning for cholecystitis. Adrenal glands and pancreas partly obscured and otherwise unremarkable. Splenomegaly with spleen measuring 14 cm. Mild to moderate right-sided hydroureteronephrosis with 6 mm stone in the midportion of the right ureter. No left-sided hydronephrosis. Bilateral perinephric stranding, right worse than left. Additional fluid noted including adjacent to right ureter. Mild wall thickening of the mildly distended urinary bladder. Small retroperitoneal lymph nodes likely reactive. No small bowel obstruction. Small hiatal hernia. Severe stool burden present, including the cecum. Imaged appendix within normal limits (61 of series 3). Uterus is anteverted with intrauterine device in place. No adnexal soft tissue mass by CT. Mild free fluid in the pelvis nonspecific and may be reactive. Degenerative changes of the pubic symphysis, hips, SI joints, and spine. Facet arthropathy is multifocal. Vacuum disc phenomenon including L4-L5 and L5-S1. IMPRESSION: 1. 6 mm stone in the midportion of the right ureter with mild-moderate right-sided hydroureteronephrosis. 2. Gallbladder wall thickening, pericholecystic fluid, and cholelithiasis are concerning for cholecystitis. This document has been electronically signed by: Royce Selby MD on 04/26/2025 21:04:28 Prescriptions: New tamsulosin 0.4 mg capsule 0.4 mg PO DAILY Qty: 7 0RF prednisone 20 mg tablet 40 mg PO DAILY 5 Days Qty: 10 0RF naproxen 500 mg tablet 500 mg PO BID PRN (Reason: pain) Qty: 14 0RF oxycodone 5 mg capsule 5 mg PO Q8H PRN (Reason: pain) Qty: 9 0RF Rx Instructions: Partial Fill upon patient request. No Action albuterol sulfate [ProAir HFA] 90 mcg/actuation HFA aerosol inhaler 2 puff inhalation Q4-6H PRN (Reason: yes) fluticasone propion-salmeterol [Advair Diskus] 500-50 mcg/dose blister with device 1 ea inhalation Q12H Qty: 60 6RF Referrals: [facility] [Provider Group, Gastroenterology] - 2 days Referral Note: cat scan shows cholecystitis, but our on-call surgeon does not believe you have cholecystitis but recommend outpatient follow-up [facility] [Provider Group, General Surgery] - 2 days Referral Note: Abdominal pain [facility] [Provider Group, Urology] - 2 days Referral Note: ureteral stone Clinical Impression: Kidney stone; Calculus, ureteral Perlita Garza MD [Primary Care Provider, Medical] - 1 day Referral Note: Kidney stones cholecystitis Clinical Impression: Kidney stone; Calculus, ureteral Stand Alone Forms: Work/School Release Interventions: ED Discharge Assessment Last Done: 04/27/25 00:08 Discharge Date/Time: 04/27/25 00:09 Print Language: Japanese
[2025-04-26 18:06] LABS: Hematocrit 39.3 % (37.0-47.0); Hemoglobin 12.9 g/dl (12.0-16.0); Imm Gran Abs Auto 0.04 X10*3/uL (0.00-0.03); Imm Gran Pct Auto 0.4 % (0.0-0.4); Lymphocytes Absolute Auto 0.5 X10*3/uL (1.2-4.9); MANUAL DIFF FLAG SCAN; Mean Corpuscular HGB Conc 32.8 g/dl (31.0-35.0); Mean Corpuscular Hemoglobin 26.8 pg (27.0-33.0); Mean Corpuscular Volume 81.5 fL (80.0-98.0); NRBC Abs Auto 0.000 X10*3/uL (0.0-0.012); NRBC Pct Auto 0.0 /100WBC (0.0-0.2); Platelet Count 147 X10*3/uL (160-400); Red Blood Count 4.82 X10*6/uL (4.20-5.50); SCAN SMEAR FLAG 1; White Blood Count 9.1 X10*3/uL (4.8-10.8)
[2025-04-26 18:18] VITALS: BP 109/63; PULSE 60; RESP 16; O2SAT 97
[2025-04-26 18:25] LABS: Alanine Aminotransferase 12 U/L (0-31); Albumin Level 4.5 g/dL (3.5-5.0); Alkaline Phosphatase 66 U/L (39-117); Anion Gap 11 (12-20); Aspartate Amino Transferase 18 U/L (5-31); Blood Urea Nitrogen 10 mg/dL (9-16); Calcium 8.8 mg/dL (8.4-10.2); Carbon Dioxide 27 mmol/L (22-29); Chloride 109 mmol/L (96-108); Creatinine Clr Calc Pharmacy 125.2; Estimated Glomerular Filt Rate > 60; Lipase 98 U/L (8-78); Potassium 4.0 mmol/L (3.3-5.1); Sodium 143 mmol/L (135-145); Total Protein 7.5 g/dL (6.5-8.0)
[2025-04-26 19:11] LABS: Appearance Urine Turbid; Glucose Urine UA Negative (Negative); PH >= 9.0 (5.0-9.0); Specific Gravity - Urine 1.015 (1.005-1.025); UMIC TRIGGER UACC YES
[2025-04-26] MEDS: iohexoL 350 MG/ML 100 ML INFUS..BTL 85 ML IV (19:47)
--- NOTE | 2025-04-26 22:01 | PM.HPGS ---
History of Present Illness History of Present Illness Date of Service: 04/26/25 Chief complaint: LRQ pain Narrative: Christina Gonzalez is a 44 year old female with a 1-2 day history of exclusive right flank pain. She has some nausea but no vomiting. She has no history of abdominal surgery. Upon presentation she underwent a battery of laboratory studies which revealed bloody urine. She had a relatively normal CBC, her AST and ALT and alkaline phosphatase were all normal as well as her bilirubins. She then underwent a CT scan which is indicative of mid right ureteral stone with partial obstruction, edema associated with ureter and collection system, fluid in the pelvis and thickening of gallbladder wall with pericholecystic fluid. At the time of my visit, patient also reported that all of her discomfort had been in her right flank and not abdomen and it had since completely resolved and she wanted to go home. Review of Systems Review of Systems: Yes all other systems are reviewed and are negative [facility] Past Medical History Medical History Asthma Family History Family History Mother Diabetes Social History Social History Household Members: Spouse and Children Housing: House Alcohol intake: former Comment: social Patient Tobacco Use Status: Former Tobacco user Tobacco use type: Cigarette Years Smoked: 10 Smoked in Last 30 Days: No Substance Use Type: Marijuana Substance Use Frequency: Occasionally Advance Directives: No Advance Directives Information Provided: No Do you have a plan to hurt others: No Plan service: No Current occupational status: employed Current occupation: [employer] Sexual orientation: Straight/Heterosexual Gender identity: Female Meds Allergies Allergy/AdvReac Type Severity Reaction Status Date / Time No Known Allergies Allergy Mild NOT Verified 04/26/25 17:36 APPLICABLE Home Medications ?Medication ?Instructions ?Recorded ?Confirmed ?Last Taken ?Type albuterol sulfate 90 mcg/actuation 2 puff inhalation Q4-6H PRN yes 01/12/22 11/16/23 Unknown History aerosol inhaler (ProAir HFA) Physical Exam Vital Signs: Vital Signs: Last Vital Signs Temp 94.2 F L 04/26/25 17:34 Pulse 60 04/26/25 18:18 Resp 16 12/28/25 18:18 BP 109/63 04/26/25 18:18 Pulse Ox 97 04/26/25 18:18 O2 Del Method Room Air 04/26/25 18:18 BMI result Body Mass Index 28.2 Const: General: cooperative, healthy appearing, comfortable, no acute distress, well developed, alert and awake Nutritional Appearance: obese Orientation/consciousness: oriented to person, oriented to place and oriented to time HEENT: Head: Yes normal to inspection, Yes normocephalic and Yes atraumatic Ears: hearing grossly normal bilaterally General nose exam: Normal external nose present Eyes: Sclerae: sclerae normal Pupils: Equal, round and reactive pupils present EOM: EOMs intact bilaterally Neck: Neck: Yes normal visual inspection Chest: Chest palpation & inspection: normal inspection of the chest Cardio: Rate: regular rate Rhythm: regular rhythm GI: Other: Obese, soft, nontender, nondistended. No masses. No hernias. No hepatosplenomegaly. No tenderness despite aggressive palpation in epigastrium and RUQ. Neuro: General: oriented to person, oriented to place and oriented to time Cranial nerves: Yes CN's II-XII intact bilaterally and Yes Equal, round and reactive pupils present Results Results Labs: Short CBC 04/26/25 Range/Units 17:59 WBC 9.1 (4.8-10.8) X10*3/uL Hgb 12.9 (12.0-16.0) g/dl Hct 39.3 (37.0-47.0) % Plt Count 147 L (160-400) X10*3/uL BMP 04/26/25 17:59 Sodium 143 Potassium 4.0 Chloride 109 H Carbon Dioxide 27 BUN 10 Creatinine 0.63 Calcium 8.8 Liver Function 04/26/25 Range/Units 17:59 Total Bilirubin 0.4 (0.0-1.0) mg/dL AST 18 (5-31) U/L ALT 12 (0-31) U/L Alkaline Phosphatase 66 (39-117) U/L Albumin 4.5 (3.5-5.0) g/dL Urine 04/26/25 Range/Units 18:59 Urine Color Yellow Urine Appearance Turbid Urine pH >= 9.0 (5.0-9.0) Ur Specific Irving 1.015 (1.005-1.025) Urine Protein Trace (Neg-Trace) mg/dL Urine Glucose (UA) Negative (Negative) mg/dL Assessment and Plan (1) Cholelithiasis: Qualifiers: Biliary obstruction: without biliary obstruction Cholecystitis presence: without cholecystitis Cholelithiasis location: gallbladder Qualified Code(s): K80.20 - Calculus of gallbladder without cholecystitis without obstruction Status: Acute Plan I told the patient her clinical scenario was not consistent with cholecystitis and added that the CT findings were more likely reflective of the process involving her ureteral stone and not primarily involving her gallbladder. She indicated she understood. She said repeatedly that all of her pain had resolved and added that she wanted to go home. I told her that I felt if she tolerated a trial of PO without resumption of pain that cholecystitis would be unlikely and at that point elective follow up for her gallbladder would be appropriate. Quality Stroke Does the patient have a stroke diagnosis?: No VTE Prior VTE?: No VTE Risk Level:: Surgical - low VTE Device Contraindication: Treatment Not Indicated VTE Drug Contraindication: Treatment Not Indicated Procedures Date of Service Date of Service: 04/26/25
[2025-04-26 22:35] VITALS: BP 114/69; PULSE 73; RESP 16; TEMP 36.4; O2SAT 99
--- NOTE | 2025-04-26 22:35 | PC.NURSE ---
Pt able to tolerate ham sandwhich and fluids. FÉLIX Connors made aware. Plan for patient to be DC pending franchise business consultant's responses per Waylon. Patient made aware.
[2025-04-27 00:08] VITALS: BP 118/73; PULSE 86; RESP 16; TEMP 36.4; O2SAT 99
== END 2025-04-27 00:09 | disposition home or self-care (01) ==
PROVIDERS: Physician Assistant; Emergency Provider Emergency Medicine; PCP Internal Medicine
DX: K80.20 Calculus of gallbladder without cholecystitis without obstruction (principal); N13.2 Hydronephrosis with renal and ureteral calculous obstruction; M25.551 Pain in right hip; Z79.899 Other long term (current) drug therapy
CPT/HCPCS: 36415; 74177; 80053; 81001; 83690; 84702; 85025; 96361; 96374; 96375; 99284; 99285; J2270; J2405; Q9967

== ENCOUNTER → 2025-04-26 17:47 | Outpatient (BNV) | payer OTHER, SELFPAY | PROVIDERS: Emergency Provider Emergency Medicine; PCP Internal Medicine; Visit Provider Surgery | DX: K80.20 Calculus of gallbladder without cholecystitis without obstruction (principal) | CPT/HCPCS: 99284 ==

== ENCOUNTER → 2025-04-26 18:38 | Outpatient (BNV) | payer OTHER, SELFPAY | PROVIDERS: Emergency Provider Emergency Medicine; PCP Internal Medicine; Visit Provider Radiology Neuroradiology | DX: N13.2 Hydronephrosis with renal and ureteral calculous obstruction (principal); K80.20 Calculus of gallbladder without cholecystitis without obstruction; K82.8 Other specified diseases of gallbladder | CPT/HCPCS: 74177 ==

== ENCOUNTER 2025-04-28 09:46 | Outpatient (AMB) | payer OTHER, SELFPAY ==
--- NOTE | 2025-04-28 09:47 | A.OFFVIS_ITS ---
Intake Visit Reasons: ultrasound results Global Clinical Leader Required: No Information Interpreted: non-clinical & clinical Allergies No Known Allergies Allergy (Mild, Verified 04/28/25 09:48) NOT APPLICABLE HPI Comments Details: The patient scheduled a telehealth visit for ultrasound follow-up regarding complex ovarian cyst identified on previous ultrasound done in 10/22. 04/27/2025 pelvic ultrasound done showed the following: IMPRESSION: IUD in appropriate position in the endometrial canal. The left ovary is not visualized. Otherwise unremarkable pelvic ultrasound. PFSH Medical History Asthma Family History Mother Diabetes Social History Household Members: Spouse and Children Housing: House Alcohol intake: former Comment: social Patient Tobacco Use Status: Former Tobacco user Tobacco use type: Cigarette Years Smoked: 10 Substance Use Type: Marijuana service: No Current occupational status: employed Current occupation: [employer] Sexual orientation: Straight/Heterosexual Gender identity: Female Female Reproductive History Menstrual Age of Menarche: 9 Review of Systems Const All systems reviewed & are unremarkable except as noted in HPI and below Reports as per HPI and Reports no additional complaints GI Reports no additional complaints Reports no additional complaints Telehealth Telehealth Telehealth Platform: [employer] Location of provider rendering services: practice address Location of patient: address on file Patient Identification confirmed using: Name, : Yes Telehealth method: video Patient verbally consented to treatment: Yes Patient verbally consented to billing insurance company: Yes Patient informed of any privacy concerns related to visit: Yes Minutes spent on Phone/Video with Pt.: 2 Assessment & Plan Assessment & Plan (1) Complex ovarian cyst: Comment: Resolved Code(s): N83.299 - Other ovarian cyst, unspecified side Category: Medical Plan: Discussed with the patient ultrasound findings showing the previously identified complex cyst has resolved. The patient was instructed to call if symptoms recur. All questions were answered the patient verbalized understanding. I spent a total of 20 minutes reviewing the chart, talking to the patient via video and documenting in the medical record. Coding Level of Care Code Tele Est Pt Level 3 (26690) Diagnoses Complex ovarian cyst N83.299
--- OUTSIDE RECORDS SUMMARY | 2025-04-28 12:36 | XMS_ITS | Encounter Summary ---
Author Organization [employer] Address [address] [place] [address] 7 [place] [address] Care Team Providers Care Transportation Department Head Name Role Phone Perlita Garza MD Primary Care Provider [phone] Encounter Details Date Type Department Care Team ([facility] st Contact Info) Description 12/10/2023 Orders Only [facility] CHC MED & PEDS [address] [facility] [place], [place] [phone] Perlita Garza MD [address] [place] [address] Obesity (BMI 30-39.9) (Primary Dx) Social History [...] documented as of this encounter Care Teams Transportation Department Head Relationship Specialty Start Date End Date Perlita Garza MD [address] [place] [address] PCP - General Internal Medicine 03/04/18 documented as of this encounter
--- OUTSIDE RECORDS SUMMARY | 2025-04-28 12:36 | XMS_ITS | Encounter Summary ---
Author Organization [employer] Address [address] [place] [address], [place] [address] Care Team Providers Care Animal Daycare Provider Name Role Phone Perlita Garza MD Primary Care Provider [phone] Reason for Referral * Imaging (Routine) - Canceled Specialty Diagnoses / Procedures Referred By Danny jaeger Referred To Contact Radiology Diagnoses Hyperprolactinemia (CMS/HCC) Procedures MR PITUITARY AND BRAIN, WITH AND WITHOUT Perlita Garza MD [address] [place] [address] Phone: tel: fax: [address] [address] Phone: tel: fax: Referral ID Status Reason Start Date Expiration Date V isits Requested Visits Authorized [id number] Canceled 08/01/2023 07/31/2024 1 1 * Consultation (Routine) - Closed Specialty Diagnoses / Procedures Referred By Danny jaeger Referred To Contact Endocrinology Diagnoses Hyperprolactinemia (CMS/HCC) Perlita Garza MD [address] [place] [address] Phone: tel: fax: [facility] Endocrinology [address] [place], [place] Phone: tel: fax: Referral ID Status Reason Start Date Expiration Date V isits Requested Visits Authorized [id number] Closed Specialty Services Required 07/27/2023 07/26/2024 1 1 Encounter Details Date Type Department Care Team (Latest Contact Info) Description 07/27/2023 Orders Only [facility] CHC MED & PEDS [address] [place] [address] Perlita Garza MD [address] [place] [address] Hyperprolactinemia (CMS/HCC) (Primary Dx) Social History Tobacco [...] BRAIN, WITH AND WITHOUT Imaging Routine Hyperprolactinemia ([facility]/HCC) Expected: 08/01/2023, Expires: 07/31/2024 Scheduled Referrals Name Type Priority Associated Diagnoses Order Schedule Referral to Endocrinology Outpatient Referral Routine Hyperprolactinemia (CMS/HCC) Expected: 07/27/2023 (Approximate), Expires: 07/26/2024 documented as of this encounter Visit Diagnoses Diagnosis Hyperprolactinemia (CMS/[facility])- Primary Other and unspecified anterior pituitary hyperfunction documented in this encounter Additional Health Concerns Assessment Noted Time PHQ-9 Depression Total Score: 0 07/26/19 24 1:55 PM EDT documented as of this encounter Care Teams Animal Daycare Provider Relationship Specialty Start Date End Date Perlita Garza MD [address] [place] [address] PCP - General Internal Medicine 03/04/18 documented as of this encounter
--- OUTSIDE RECORDS SUMMARY | 2025-04-28 12:36 | XMS_ITS | Encounter Summary ---
Author Organization [employer] Address [address] [facility] 7 [place] [address] Care Team Providers Care Body Design Checker Name Role Phone Perlita Garza MD Primary Care Provider [phone] Encounter Details Date Type Department Care Team ([facility] st Contact Info) Description 03/10/2024 Orders Only [facility] CHC MED & PEDS [address] [place] [address] Perlita Garza MD [address] [place] [address] Social History Tobacco Use Types Packs/Day Years [...] documented as of this encounter Care Teams Body Design Checker Relationship Specialty Start Date End Date Perlita Garza MD [address] [place] [address] PCP - General Internal Medicine 03/04/18 documented as of this encounter
--- OUTSIDE RECORDS SUMMARY | 2025-04-28 12:36 | XMS_ITS | Encounter Summary ---
Author Organization [employer] Address [address] [place] [address] 7 [place] [address] Care Team Providers Care Concession Worker Name Role Phone Perlita Garza MD Primary Care Provider [phone] Reason for Visit * Reason Comments Med Refill Encounter Details Date Type Department Care Team ([facility] Contact Info) Description 11/06/2023 Refill [facility] CHC MED & PEDS [address] [facility] [place] [address] Perlita Garza MD [address] [place] [address] Obesity (BMI 30-39.9) Social History Tobacco Use [...] documented as of this encounter Care Teams Concession Worker Relationship Specialty Start Date End Date Perlita Garza MD [address] [place] [address] PCP - General Internal Medicine 03/04/18 documented as of this encounter
--- OUTSIDE RECORDS SUMMARY | 2025-04-28 12:36 | XMS_ITS | Encounter Summary ---
Author Organization [employer] Address [address] [place] [address] 7 [place] [address] Care Team Providers Care Geographic Information Systems Manager Name Role Phone Perlita Garza MD Primary Care Provider [phone] Encounter Details Date Type Department Care Team ([facility] st Contact Info) Description 10/11/2023 Orders Only [facility] CHC MED & PEDS 505 [facility] [place], [place] [phone] Perlita Garza MD [address] [place] [address] Obesity (BMI 30-39.9) (Primary Dx) Social History [...] documented as of this encounter Care Teams Geographic Information Systems Manager Relationship Specialty Start Date End Date Perlita Garza MD [address] [place] [address] PCP - General Internal Medicine 03/04/18 documented as of this encounter
--- OUTSIDE RECORDS SUMMARY | 2025-04-28 12:36 | XMS_ITS | Data Portability ---
Author Organization FÉLIX Kan [facility], [address] Address [address] [place] [address] Care Team Providers Care Battery Hand Name Role Phone [facility] Primary Care Provider [phone] Assessment No assessment recorded. Plan of Treatment Reminders Order Date Submit Date Provider Last Modified By Organization Details Last Modified Time Details Appointments None recorded. Lab None recorded. Referral None recorded. Procedures None recorded. Surgeries None recorded. Imaging None recorded. Medication Orders cyclobenzap rine 10 mg tablet 2022 023 [id number], [address] [facility] [place], [place], [id number], 10:03:09 Patient TargetsNo targets recorded. Patient Instructions Encounter Date Encounter Id Patient Instructions Last Modified By Organization Details Last Modified Time 11/12/2022 [id number] getting back to normal after low back pain: care instructions [email or web address] Not available 11/12/2022 10:03:00 Reason for Referral None Reported. Problems Name Problem SNOMED Code Status Onset Date Resolution Date Notes Provider Name and Address Organization Details Recorded Time Asthma [id number] Active FÉLIX [facility] 11/12/2022 09:48:11 Problem [...] Updated DateTime 3 167.64 cm 32.3 kg/m2 81686.4 7 g 8 100 % 63 /min [...] ICD10 Code Diagnosis IMO Codes Diagnosis Note [id number] [address] [place] [address] 03/02/2020 09:25:16 03/02/2020 10:46:50 [id number] [address] [place] [phone] 01/22/2017 10:56:01 01/22/2017 12:05:50 [id number] Surendra Pitts DO [address] [place] [address] 11/12/2022 08:21:16 11/12/2022 10:05:32 Low back pain [id number] M54.50 Likely muscular originc/w NSAID. recommend alternate [...] Pineda Member ID Guarantor Name 12/16/2022 1 [place]: [facility] Christina Gonzalez [id number] Christina Gonzalez Notes Date Note Type Note Provider Name and Address Organization Details Recorded Time 11/12/2022 text/html Back Pain/Injury UCReported by [id number] yo female c/o LBP x 2 days started after bending over No numbness/tinglingNo weaknessNo foot dropNo saddle anesthesiaNo incontinenceNo traumaNo rash ROS as noted in the HPI Surendra Pitts DO [address] [place], [address], [place] - [facility] 11/12/2022 10:04:16 OBGyn Episode No OBEpisode recorded.
--- OUTSIDE RECORDS SUMMARY | 2025-04-28 12:36 | XMS_ITS | Encounter Summary ---
Author Organization [employer] Address [address] [place] [address] 7 [place] [address] Care Team Providers Care Senior Editor Name Role Phone Perlita Garza MD Primary Care Provider [phone] Reason for Visit * Reason Onset Date Comments Med Refill 03/03/2024 Encounter Details Date Type Department Care Team ([facility] st Contact Info) Description 03/03/2024 Refill [facility] CHC MED & PEDS [address] [facility] [place] [address] Perlita Garza MD [address] [place] [address] Chronic obstructive pulmonary disease, unspecified COPD type [...] obstructive pulmonary disease, unspecified COPD type (CMS/HCC) ([facility]) Obesity (BMI 30-39.9) documented in this encounter Additional Health Concerns Assessment Noted Time PHQ-9 Depression Total Score: 0 07/26/19 24 1:55 PM EDT documented as of this encounter Care Teams Senior Editor Relationship Specialty Start Date End Date Perlita Garza MD [address] [place] [address] PCP - General Internal Medicine 03/04/18 documented as of this encounter
--- OUTSIDE RECORDS SUMMARY | 2025-04-28 12:36 | XMS_ITS | Encounter Summary ---
Author Organization [employer] Address [address] [facility] 7t [place] [address] Care Team Providers Care Telegraph Service Rater Name Role Phone Perlita Garza MD Primary Care Provider [phone] Reason for Visit * Reason Comments Med Refill Encounter Details Date Type Department Care Team ([facility] st Contact Info) Description 06/05/2023 Refill [facility] [address] [place] [address] Alessio Rasheed MD [address] [place] [address] Acute otitis externa of right ear, unspecified [...] type documented in this encounter Care Teams Telegraph Service Rater Relationship Specialty Start Date End Date Perlita aGrza MD [address] [place] [address] PCP - General Internal Medicine 03/04/18 documented as of this encounter
--- OUTSIDE RECORDS SUMMARY | 2025-04-28 12:36 | XMS_ITS | Encounter Summary ---
Author Organization [employer] Address [address] [place] [address] 7 [place] [address] Care Team Providers Care Document Photographer Name Role Phone Perlita Garza MD Primary Care Provider [phone] Reason for Visit * Reason Comments Med Refill Encounter Details Date Type Department Care Team ([facility] Contact Info) Description 04/05/2024 Refill [facility] CHC MED & PEDS [address] [facility] [place] [address] Perlita Garza MD [address] [place] [address] Chronic obstructive pulmonary disease, unspecified COPD type [...] obstructive pulmonary disease, unspecified COPD type (CMS/HCC) ([facility]) Obesity (BMI 30-39.9) documented in this encounter Additional Health Concerns Assessment Noted Time PHQ-9 Depression Total Score: 0 07/26/19 24 1:55 PM EDT documented as of this encounter Care Teams Document Photographer Relationship Specialty Start Date End Date Perlita Garza MD [address] [place] [address] PCP - General Internal Medicine 03/04/18 documented as of this encounter
--- OUTSIDE RECORDS SUMMARY | 2025-04-28 12:36 | XMS_ITS | Encounter Summary ---
Author Organization [employer] Address [address] [place] [address] Care Team Providers Care Typesetting Machine Tender Name Role Phone Perlita Garza MD Primary Care Provider [phone] Encounter Details Date Type Department Care Team (Late st Contact Info) Description 04/24/2025 Orders Only [facility] External Provider, [facility] Social History Tobacco Use Types Packs/Day Years [...] housing situation today? I have emani june 07/18/[address] you [...] on file documented as of this encounter Procedures Procedure Name Priority Date/Time Associated Diagnosis Comments US PELVIS TRANSVAGINAL Routine 04/24/2025 4:15 PM EST documented in this encounter Results * US Pelvis Transvaginal (04/24/2025 4:15 PM EST) Anatomical Region Laterality Modality Pelvis Ultrasound 04/24/2025 4:15 PM EST Narrative 04/27/2025 6:59 AM EST [place] [address] Ultrasound Report Signed Patient: Christina Gonzalez MR#: [id number] 2 : 1980 Acct:[id number] Age/Sex: 44 / F ADM Date: 04/24/25 Loc: HO.US Attending Dr: Kunal Bales MD Ordering Physician: Kunal Bales MD Date of Service: 04/24/25 Procedure(s): US pelvic and transvaginal Accession Number(s): [id number] cc: Perlita Garza MD; Kunal Bales MD Reason for Exam: N83.299 - Other ovarian cyst, unspecified side EXAMINATION: US PELVIS TRANSABDOMINAL AND TRANSVAGINAL HISTORY: N83.299 - Other ovarian cyst, unspecified side COMPARISON: Comparison is made with the prior examination dated 10/06/2024. TECHNIQUE: Transabdominal and endovaginal real-time 2D garcia-scale ultrasound was performed. FINDINGS: Uterus: The uterus is normal in size, measuring 10.7 x 6.3 x 7.5 cm. Myometrium has a normal echotexture. No fibroids are identified. Endometrium: The endometrial stripe measures 12 mm in thickness. An IUD is seen in appropriate position in the endometrial cavity. Right ovary: The right ovary measures 3.4 x 2.9 x 2.3 cm. The right ovary is normal in size and echotexture. There is a 10 x 17 x 9 mm dominant follicle. Left ovary: The left ovary is not visualized. Pelvic fluid: none. US/US pelvic and transvaginal IMPRESSION: IUD in appropriate position in the endometrial canal. The left ovary is not visualized. Otherwise unremarkable pelvic ultrasound. Electronically signed by: Brandon Cunningham MD 04/27/2025 06:57 AM EST Dictated By: Brandon Cunningham MD Signed By: <Electronically signed by Brandon Cunningham MD in OV> 04/27/25 0657 DD/ 1615 TD/TT: 04/24/25 1625 [employer] Paralegal: Procedure Note Donotuseinterpreter, Image - 04/27/[address] [address] Ultrasound Report Signed Patient: Radha Gonzalez#: [id number] 2 : 1980Acct:[id number] Age/Sex: 44 / FADM Date: 04/24/25 Loc: HO.US Attending Dr: Kunal Bales MD Ordering Physician: Kunal Bales MD Date of Service: 04/24/25 Procedure(s): US pelvic and transvaginal Accession Number(s): [id number] cc: Perlita Garza MD; Kunal Blaes MD Reason for Exam: N83.299 - Other ovarian cyst, unspecified side EXAMINATION: US PELVIS TRANSABDOMINAL AND TRANSVAGINAL HISTORY: N83.299 - Other ovarian cyst, unspecified side COMPARISON: Comparison is made with the prior examination dated 10/06/2024. TECHNIQUE: Transabdominal and endovaginal real-time 2D garcia-scale ultrasound was performed. FINDINGS: Uterus: The uterus is normal in size, measuring 10.7 x 6.3 x 7.5 cm. Myometrium has a normal echotexture. No fibroids are identified. Endometrium: The endometrial stripe measures 12 mm in thickness. An IUD is seen in appropriate position in the endometrial cavity. Right ovary: The right ovary measures 3.4 x 2.9 x 2.3 cm. The right ovary is normal in size and echotexture. There is a 10 x 17 x 9 mm dominant follicle. Left ovary: The left ovary is not visualized. Pelvic fluid: none. US/US pelvic and transvaginal IMPRESSION: IUD in appropriate position in the endometrial canal. The left ovary is not visualized. Otherwise unremarkable pelvic ultrasound. Electronically signed by: Brandon Cunningham MD 04/27/2025 06:57 AM [facility] Dictated By: Brandon Cunningham MD Signed By: <Electronically signed by Brandon Cunningham MD in OV> 04/27/25 0657 DD/ 1615 TD/TT: 04/24/25 1625 [employer] Paralegal: us [facility] External Provider IMG US PROCEDURES Final Result documented in this encounter Visit Diagnoses Not on filedocumented in this encounter Additional Health Concerns Assessment Noted Time PHQ-9 Depression Total Score: 0 10/24/19 11:34 AM EDT documented as of this encounter Care Teams Typesetting Machine Tender Relationship Specialty Start Date End Date Perlita Garza MD [address] [place] [phone] PCP - General Internal Medicine 03/04/18 documented as of this encounter
--- OUTSIDE RECORDS SUMMARY | 2025-04-28 12:36 | XMS_ITS | Clinical Summary ---
Author Organization [employer] Address [address] [facility] 7[address] [place] [address] Care Team Providers Care Change Management Specialist Name Role Phone Perlita Garza MD Primary Care Provider [phone] Allergies No known active allergies Medications diphenhydrAMINE [...] Encounters Date Type Department Care Team Description 04/28/2025 Telephone [facility] [address] [place] [address] Perlita Garza MD ER Follow-up 04/26/2025 Orders Only GENERIC EXTERNAL DATA DEPARTMENT Provider, Generic External Data 04/24/2025 Orders Only [facility] External Provider, [facility] 04/17/2025 9:30 AM EST Clinical Support [facility] [address] [place] [address] Audrey Parker RN Encounter for immunization 04/17/2025 Travel 04/10/2025 Travel 01/29/2025 Refill [facility] [address] [place] [address] Mini Shrestha MD from Last 3 Months [...] Procedure Name Priority Date/Time Associated Diagnosis Comments CT ABDOMEN PELVIS W CONTRAST Routine 04/26/2025 9:04 PM EST URINALYSIS, COMPLETE, WITH REFLEX TO CULTURE Routine 04/26/2025 6:59 PM EST US PELVIS TRANSVAGINAL Routine 4:15 PM EST BI MAMMOGRAM SCREENING TOMOSYNTHESIS BILATERAL Routine 11/06/2024 [...] Recently Relevant to Health Maintenance Results * CT Abdomen Pelvis w/ Contrast (04/26/2025 9:04 PM EST) Anatomical Region Laterality Modality Body, Pelvis, Abdomen Computed T omography 04/26/2025 9:04 PM EST Narrative 04/26/2025 9:05 PM EST [address] [address] [address] Scan Report Signed Patient: Christina Gonzalez MR#: [id number] 2 : 1980 Acct:[id number] Age/Sex: 44 / F ADM Date: 04/26/25 Loc: HO.ED Attending Dr: Ordering Physician: Waylon Luu Date of Service: 04/26/25 Procedure(s): CT abdomen pelvis w IV con Accession Number(s): [id number] cc: Waylon Luu; Perlita Garza MD Report Number: [id number]: Total DLP = 630.00 mGy-cm Reason for Exam: Right lower quadrant right hip pain vomiting CLINICAL HISTORY: Right lower quadrant right hip pain vomiting CT abdomen and pelvis with contrast Comparison: Ultrasound of the pelvis from 10/06/2024 Findings: Mild bibasilar atelectasis and scarring. Borderline cardiomegaly. Fat deposition noted in the liver. Gallbladder wall thickening, pericholecystic fluid, and cholelithiasis are concerning for cholecystitis. Adrenal glands and pancreas partly obscured and otherwise unremarkable. Splenomegaly with spleen measuring 14 cm. Mild to moderate right-sided hydroureteronephrosis with 6 mm stone in the midportion of the right ureter. No left-sided hydronephrosis. Bilateral perinephric stranding, right worse than left. Additional fluid noted including adjacent to right ureter. Mild wall thickening of the mildly distended urinary bladder. Small retroperitoneal lymph nodes likely reactive. No small bowel obstruction. Small hiatal hernia. Severe stool burden present, including the cecum. Imaged appendix within normal limits (61 of series 3). Uterus is anteverted with intrauterine device in place. No adnexal soft tissue mass by CT. Mild free fluid in the pelvis nonspecific and may be reactive. Degenerative changes of the pubic symphysis, hips, SI joints, and spine. Facet arthropathy is multifocal. Vacuum disc phenomenon including L4-L5 and L5-S1. IMPRESSION: 1. 6 mm stone in the midportion of the right ureter with mild-moderate right-sided hydroureteronephrosis. 2. Gallbladder wall thickening, pericholecystic fluid, and cholelithiasis are concerning for cholecystitis. This document has been electronically signed by: Royce Selby MD on 04/26/2025 21:04:28 Dictated By: Royce Selby MD Signed By: <Electronically signed by Royce Selby MD in OV> 04/26/252103 DD/ 03 TD/TT: 04/26/252103 Top Flavor Attendant: Procedure Note Donotuseinterpreter, Image - 04/26/[address] [place] [address] [address] Scan Report Signed Patient: Radha Gonzalez#: [id number] 2 : 1980Acct:[id number] Age/Sex: 44 / FADM Date: 04/26/25 Loc: HO.ED Attending Dr: Ordering Physician: Waylon Luu Date of Service: 04/26/25 Procedure(s): CT abdomen pelvis w IV con Accession Number(s): [id number] cc: Waylon Luu; Perlita Garza MD Report Number: [id number]: Total DLP = 630.00 mGy-cm Reason for Exam: Right lower quadrant right hip pain vomiting CLINICAL HISTORY: Right lower quadrant right hip pain vomiting CT abdomen and pelvis with contrast Comparison: Ultrasound of the pelvis from 10/06/2024 Findings: Mild bibasilar atelectasis and scarring. Borderline cardiomegaly. Fat deposition noted in the liver. Gallbladder wall thickening, pericholecystic fluid, and cholelithiasis are concerning for cholecystitis. Adrenal glands and pancreas partly obscured and otherwise unremarkable. Splenomegaly with spleen measuring 14 cm. Mild to moderate right-sided hydroureteronephrosis with 6 mm stone in the midportion of the right ureter. No left-sided hydronephrosis. Bilateral perinephric stranding, right worse than left. Additional fluid noted including adjacent to right ureter. Mild wall thickening of the mildly distended urinary bladder. Small retroperitoneal lymph nodes likely reactive. No small bowel obstruction. Small hiatal hernia. Severe stool burden present, including the cecum. Imaged appendix within normal limits (61 of series 3). Uterus is anteverted with intrauterine device in place. No adnexal soft tissue mass by CT. Mild free fluid in the pelvis nonspecific and may be reactive. Degenerative changes of the pubic symphysis, hips, SI joints, and spine. Facet arthropathy is multifocal. Vacuum disc phenomenon including L4-L5 and L5-S1. IMPRESSION: 1. 6 mm stone in the midportion of the right ureter with mild-moderate right-sided hydroureteronephrosis. 2. Gallbladder wall thickening, pericholecystic fluid, and cholelithiasis are concerning for cholecystitis. This document has been electronically signed by: Royce Selby MD on 04/26/2025 21:04:28 Dictated By: Royce Selby MD Signed By: <Electronically signed by Royce Selby MD in OV> 04/26/252103 DD/ 03 TD/TT: 04/26/252103 Top Flavor Attendant: [facility] External Provider IMG CT PROCEDURES Edited Result - Final * (ABNORMAL) Urinalysis, Complete, with Reflex to Culture (04/26/2025 6:59 PM EST) Color Urine Yellow [facility] Appearance Urine Turbid [facility] PH >=9.0 5.0 - 9.0 [facility] Glucose Urine UA Negative Negative mg/dL [facility] Urine Blood Large (3+)(A) Negative [facility] Specific [place] - Urine 1.015 1.005 - 1.025 [facility] Urine Protein Trace Neg-Trace mg/dL [facility] Urine Ketones Negative Negative mg/dL [facility] Nitrite Urine Negative Negative [facility] Leukocyte Esterase Urine Trace(A) Negative [facility] RBC Urine >20(A) 0 - 2 /HPF [facility] Urine WBC 0-5 0 - 5 /HPF [facility] Urine Squamous Epithelial Cell 0-2 0 - 2 /HPF [facility] Urine Bacteria None Seen None Seen [facility] Hyaline Casts, Urine 0-2 0 - 2 /LPF [facility] 04/26/2025 6:59 PM EST 04/26/2025 7:05 PM EST Narrative [facility] - 04/26/2025 7:16 PM EST [id number], Catheterized us Generic External Data Provider LAB URINE ORDERAB LES Final Result [facility] [address] [place] [phone] * US Pelvis Transvaginal (04/24/2025 4:15 PM EST) Anatomical Region Laterality Modality Pelvis Ultrasound 04/24/2025 4:15 PM EST Narrative 04/27/2025 6:59 AM EST [address] [address] Ultrasound Report Signed Patient: Christina Gonzalez MR#: [id number] 2 : 1980 Acct:[id number] Age/Sex: 44 / F ADM Date: 04/24/25 Loc: HO.US Attending Dr: Kunal Bales MD Ordering Physician: Kunal Bales MD Date of Service: 04/24/25 Procedure(s): US pelvic and transvaginal Accession Number(s): [id number] cc: Perlita Garza MD; Kunal Bales MD [...] Brandon Cunningham MD 04/27/2025 06:57 AM EST RP Dictated By: Brandon Cunningham MD Signed By: <Electronically signed by Brandon Cunningham MD in OV> 04/27/25 0657 DD/ 1615 TD/TT: 04/24/25 1625 Top Flavor Attendant: Procedure Note Donotuseinterpreter, Image - 04/27/2025 [place] [address] Ultrasound Report Signed Patient: Radha Gonzalez#: [id number] 2 : 1980Acct:[id number] Age/Sex: 44 / FADM Date: 04/24/25 Loc: .US Attending Dr: Kunal Bales MD Ordering Physician: Kunal Bales MD Date of Service: 04/24/25 Procedure(s): US pelvic and transvaginal Accession Number(s): [id number] cc: Perlita Garza MD; Kunal Bales MD [...] Brandon Cunningham MD 04/27/2025 06:57 AM EST RP Dictated By: Brandon Cunningham MD Signed By: <Electronically signed by Brandon Cunningham MD in OV> 04/27/25 0657 DD/ 1615 TD/TT: 04/24/25 1625 Top Flavor Attendant: us [facility] External Provider IMG US PROCEDURES Final Result * BI Mammogram Screening Tomosynthesis Bilateral (11/06/2024 8:47 AM EDT) Anatomical Region Laterality Modality Breast Bilateral Mammography 11/06/2024 8:47 AM EDT Narrative 11/18/2024 8:47 PM EDT [facility] [address] [place] [address] Mammography Report Signed Patient: Christina Gonzalez MR#: [id number] 2 : 1980 Acct:[id number] Age/Sex: 44 / F ADM Date: 11/06/24 Loc: HO.MAMMO Attending Dr: Kunal Bales MD Ordering Physician: Kunal Bales MD Results: 1Negativ e Date of Service: 11/06/24 Follow Up: 1 Year From [facility] Mamm[facility] Procedure(s): MM tomosynthesis screening BI Accession Number(s): [id number] cc: Perlita Garza MD; Kunal Bales MD [...] Vijay Pathak MD 11/18/2024 08:44 PM EDT RP Dictated By: Vijay Pathak MD Signed By: <Electronically signed by Vijay Pathak MD in OV> 11/18/242043 DD/ 0847 TD/TT: 11/06/24 0906 Top Flavor Attendant: Procedure Note Donotuseinterpreter, Image - 11/18/2024 [facility] [address] [place] [address] Mammography Report Signed Patient: Radha Gonzalez#: [id number] 2 : 1980Acct:[id number] Age/Sex: 44 / FADM Date: 11/06/24 Loc: LILA.MAMMO Attending Dr: Kunal Bales MD Ordering Physician: Kunal Bales MDResults: 1Negativ e Date of Service: 11/06/24Follow Up: 1 Year From Orig inal Mammogram Procedure(s): MM tomosynthesis screening BI Accession Number(s): [id number] cc: Perlita Garza MD; Kunal Bales MD [...] Pathak MD 11/18/2024 08:44 PM EDT Workstation: [employer] Dictated By: Vijay Pathak MD Signed By: <Electronically signed by Vijay Pathak MD in OV> 11/18/242043 DD/ 0847 TD/TT: 11/06/24 0906 Top Flavor Attendant: [facility] External Provider IMG BI PROCEDURES Final Result * Hepatitis C Antibody with Reflex to HCV, RNA, Quantitative, Real-Time PCR (10/23/2024 11:50 AM EDT) Hepatitis C Antibody Nonreactive Nonreactive [facility] Comment:Antibodies to HCV no t detected; does not exclude early acuteHCV infection. Blood Venous blood specimen / Unknown 10/23/2024 11:50 AM EDT 10/23/2024 2:24 PM EDT Perlita Garza MD LAB BLOOD ORDERABLES Final Result [facility] [address] [place] [phone] * HIV-1/2 Antigen and Antibodies, Fourth Generation, with Reflexes (10/23/2024 11:50 AM EDT) HIV AB/AG Nonreactive Nonreactive [facility] Comment:HIV-1 p24 Ag and/or HIV-1/HIV-2 Ab not detected.A test result that is nonreactive does not exclude thepossibility of exposure to or infection with HIV-1 and/orHIV-2. Nonreactive results in this assay for individualswith prior exposure to HIV-1 and/or HIV-2 may be due toantigen and antibody levels that are below the limit ofdetection of this assay.The [employer] HIV Ag/Ab Combo assay result andsupplemental assay results should be interpreted inconjunction with the patient's clinical presentation,history and other laboratory results. If the results areinconsistent with clinical evidence, additional testing issuggested to confirm the result. Blood Venous blood specimen / Unknown 10/23/2024 11:50 AM EDT 10/23/2024 2:24 PM EDT us Perlita Garza MD LAB BLOOD ORDERABLES Final Result [facility] [address] [place] [phone] * (ABNORMAL) Lipid Panel, Standard (10/23/2024 11:50 AM EDT) Triglycerides 81 <150 mg/dL [facility] Comment:Desirable Triglyceri de: less than 150 mg/dLBorderline High Triglyceride 150-199 mg/dLHigh Triglyceride: 200-499 mg/dLVery High Triglyceride: greater than or equal to 5OO mg/dL Cholesterol 173 <200 mg/dL [facility] Comment:Desirable Cholestero l: less than 200 mg/dLBorderline High Cholesterol: 200-239 mg/dLHigh Cholesterol: greater than 239 mg/dL LDL Cholesterol Calculated 103(H) <100 mg/dL [facility] Comment:Desirable LDL: less than 100 mg/dLNear Optimal/Above Optimal LDL: 110- 129 mg/dLBorderline High LDL: 130-159 mg/dLHigh LDL: 160-189 mg/dLVery High LDL: greater than or equal to 190 mg/dL HDL Cholesterol 54 >40 mg/dL [facility] Comment:Desirable HDL: great er than 40 mg/dL Note: This HDL assay may give artificially low results in patients with liver disease. Blood Venous blood specimen / Unknown 10/23/2024 11:50 AM EDT 10/23/2024 2:24 PM EDT us Perlita Garza MD LAB BLOOD ORDERABLES Final Result [facility] [address] [place] [phone] * ThinPrep Imaging System Pap (12/06/2023 7:52 AM EDT) SOURCE: SEE [facility] Comment:None given Report Status: [facility] Clinical Information: SEE NOTE [facility] Comment:None given LMP: SEE [facility] Comment:NONE GIVEN Prev. PAP: SEE NOTE [facility] Comment:NONE GIVEN Prev. BX: SEE NOTE [facility] Comment:NONE GIVEN Statement Of Adequacy: SEE [facility] Comment:Satisfactory for felicia luation.Endocervical/transformation zone componentpresent. General Categorization: [facility] Interpretation/Result: SEE [facility] Comment:Cytology Results: Ne gative for intraepitheliallesion or malignancy. Cytology Comment SEE NOTE [facility] Comment:This Pap test has be en evaluated with computerassisted technology. Cloth Reeler: SEE NOTE [facility] Comment:DMK, CT(ASCP)CT scre ening location: [facility] [address]Xlayg preparation performed at: [facility] [address] CLIA No. [id number] Review Cloth Reeler: [facility] Pathologist [facility] PAP Infection TNP [facility] See Note SEE NOTE [facility] Comment:EXPLANATORY NOTE:The Pap is a screening test for cervical cancer. It isnot a diagnostic test and is subject to false negativeand false positive results. It is most reliable when asatisfactory sample, regularly obtained, is submittedwith relevant clinical findings and history, and whenthe Pap result is evaluated along with historic andcurrent clinical information.THIS TEST WAS PERFORMED AT:[facility] [address] [id number] MERATI,MD 12/06/2023 7:52 AM EDT 12/06/2023 3:40 PM EDT Narrative [facility] - 12/11/2023 1:37 PM EDT SEE SCANNED RESULTS IN EMRWas previous PAP abnormal? UnknownClinical Information: routineCollection Date: 12/06/23igh risk HPV with 16 18 genotyping? NReflex HPV any abnormal diagnosis? NReflex HPV if ASCUS only? NHigh Risk HPV (any diagnosis)? NLMP: 12/05/23Date of previous PAP [id number] by: : cervical us Generic External Data Provider LAB PATHOLOGY ORD ERABLES Final Result [facility] [address] [place] [phone] * HPV mRNA E6/E7 w/Reflex to HPV Genotypes 16, 18/45 (10/10/2023 11:39 AM EDT) HPV nRNA E6/E7 Not Detected Not Detected [facility] Comment:Methodology: Transcr iption-Mediated AmplificationThis assay detects E6/E7 viral messenger RNA (mRNA) from 14high-risk HPV types (16,18,31,33,35,39,45,51,52,56,58,59,66,68).Cervical sources are required for HPV testing.If a vaginal source from a patient who has had atotal hysterectomy with removal of cervix wassubmitted, please contact the testing laboratoryfor alternative testing options.For additional information, please refer [email or web address]/faq/QEV386o7(This link if provided for information/educational purposes only.)THIS TEST WAS PERFORMED AT:[facility] [place] [phone] SANCHEZ MD HPV mRNA E6/E7 [facility] HPV 16 RNA [facility] HPV 18/45 RNA [facility] 10/10/2023 11:3 9 AM EDT 10/11/2023 8:00 AM EDT us Perlita Garza MD LAB CYTOLOGY ORDERABLES Fin al Result [facility] [address] [place] [phone] from Last 3 Months or Most Recently Relevant to Health Maintenance Insurance [facility] [place] [id number] [place] [address] Care Teams Change Management Specialist Relationship Specialty Start Date End Date Perlita Garza MD [address] [facility] [place] [address] PCP - General Internal Medicine 03/04/18
--- OUTSIDE RECORDS SUMMARY | 2025-04-28 12:36 | XMS_ITS | Encounter Summary ---
Author Organization [employer] Address [address] [place] [address] [address] [place] [address] Care Team Providers Care Kitchenwhere Maker Name Role Phone Perlita Garza MD Primary Care Provider [phone] Reason for Referral * Imaging (Routine) - Closed Specialty Diagnoses / Procedures Referred By Contac t Referred To Contact Radiology Diagnoses Elevated prolactin level Procedures Mr Brain w/ and w/o Contrast Perlita Garza MD [address] [place] [address] Phone: tel: fax: [address] [phone] Phone: tel: fax: Referral ID Status Reason Start Date Expiration Date Visits Re quested Visits Authorized [id number] Closed 08/17/2023 08/16/2024 1 1 Encounter Details Date Type Department Care Team (Late st Contact Info) Description 08/17/2023 Orders Only [facility] [address] [place], [place] [phone] Perlita Garza MD [address] [place] [phone] Elevated prolactin level (Primary Dx) Social History [...] documented as of this encounter Care Teams Kitchenwhere Maker Relationship Specialty Start Date End Date Perlita Garza MD [address] [place] [phone] PCP - General Internal Medicine 03/04/18 documented as of this encounter
--- OUTSIDE RECORDS SUMMARY | 2025-04-28 12:36 | XMS_ITS | Encounter Summary ---
Author Organization [employer] Address [address] [place] [address] Care Team Providers Care Banjo Repair Person Name Role Phone Perlita Garza MD Primary Care Provider [phone] Encounter Details Date Type Department Care Team (Late st Contact Info) Description 04/26/2025 Orders Only GENERIC EXTERNAL DATA DEPARTMENT [...] TO CULTURE Routine 04/26/2025 6:59 PM EST documented in this encounter Results * CT Abdomen Pelvis w/ Contrast (04/26/2025 9:04 PM EST) Anatomical Region Laterality Modality Body, Pelvis, Abdomen Computed T omography 04/26/2025 9:04 PM EST Narrative 04/26/2025 9:05 PM EST [place] [address] CT Scan Report Signed Patient: Christina Gonzalez MR#: [id number] 2 : 1980 Acct:[id number] Age/Sex: 44 / F ADM Date: 04/26/25 Loc: .ED Attending Dr: Ordering Physician: Waylon Luu Date of Service: 04/26/25 Procedure(s): CT abdomen pelvis w IV con Accession Number(s): [id number] cc: Waylon Luu; Perlita Garza MD Report Number: [id number]: Total DLP = 630.00 mGy-cm Reason for [...] in OV> 04/26/252103 DD/ 03 TD/TT: 04/26/252103 Train Announcer: Procedure Note Donotuseinterpreter, Image - 04/26/[address] [address] [address] Scan Report Signed Patient: Radha Gonzalez#: [id number] 2 : 1980Acct:[id number] Age/Sex: 44 / FADM Date: 04/26/25 Loc: HO.ED Attending Dr: Ordering Physician: Waylon Luu Date of Service: 04/26/25 Procedure(s): CT abdomen pelvis w IV con Accession Number(s): [id number] cc: Waylon Luu; Perlita Garza MD Report Number: [id number]: Total DLP = 630.00 mGy-cm Reason for [...] in OV> 04/26/252103 DD/ 03 TD/TT: 04/26/252103 Train Announcer: [facility] External Provider IMG CT PROCEDURES Edited Result - Final * (ABNORMAL) Urinalysis, Complete, with Reflex to Culture (04/26/2025 6:59 PM EST) Color Urine Yellow [facility] Appearance Urine Turbid [facility] PH >=9.0 5.0 - 9.0 [facility] Glucose Urine UA Negative Negative mg/dL [facility] Urine Blood Large (3+)(A) Negative [facility] Specific [place] - Urine 1.015 1.005 - 1.025 [facility] Urine Protein Trace Neg-Trace mg/dL [facility] Urine Ketones Negative Negative mg/dL [facility] Nitrite Urine Negative Negative [facility] Leukocyte Esterase Urine Trace(A) Negative [facility] RBC Urine >20(A) 0 - 2 /HPF [facility] Urine WBC 0-5 0 - 5 /HPF [facility] Urine Squamous Epithelial Cell 0-2 0 - 2 /HPF [facility] Urine Bacteria None Seen None Seen [facility] Hyaline Casts, Urine 0-2 0 - 2 /LPF [facility] 04/26/2025 6:59 PM EST 04/26/2025 7:05 PM EST Narrative [facility] - 04/26/2025 7:16 PM EST [id number], Catheterized Generic External Data Provider LAB URINE ORDERAB LES Final Result [facility] [address] [place] [phone] documented in this encounter Visit Diagnoses Not on filedocumented in this encounter Additional Health Concerns Assessment Noted Time PHQ-9 Depression Total Score: 0 10/24/19 25 11:34 AM EDT documented as of this encounter Care Teams Banjo Repair Person Relationship Specialty Start Date End Date Perlita Garza MD [address] [place] [id number] PCP - General Internal Medicine 03/04/18 documented as of this encounter
--- OUTSIDE RECORDS SUMMARY | 2025-04-28 12:36 | XMS_ITS | Encounter Summary ---
Author Organization [employer] Address [address] [place] [address] [address] [place] [address] Care Team Providers Care General Office Worker Name Role Phone Perlita Garza MD Primary Care Provider [phone] Reason for Visit * Reason Onset Date Comments ER Follow-up 04/28/2025 Encounter Details Date Type Department Care Team ([facility] Contact Info) Description 04/28/2025 Telephone [facility] MED & PEDS [address] [facility] [place] [address] Perlita Garza MD [address] [place] [address] ER Follow-up Social History Tobacco Use Types Packs/Day Years [...] encounter Miscellaneous Notes * Telephone Encounter - Dameon Funez - 04/28/2025 11:52 AM EST Patient calling to report ED visit on : Date: 04/26 Hospital: [facility] Seen for: kidney stone Symptomatic No *if yes message should go to Triage Patient advised will forward to team nurse for follow up documented in this encounter Plan of Treatment Not on file documented as of this encounter Visit Diagnoses Not on filedocumented in this encounter Additional Health Concerns Assessment Noted Time PHQ-9 Depression Total Score: 0 10/24/19 25 11:34 AM EDT documented as of this encounter Care Teams General Office Worker Relationship Specialty Start Date End Date Perlita Garza MD [address] [place] [phone] PCP - General Internal Medicine 03/04/18 documented as of this encounter
--- OUTSIDE RECORDS SUMMARY | 2025-04-28 12:36 | XMS_ITS | Encounter Summary ---
Author Organization [employer] Address [address] [place] [address] [address] [place] [address] Care Team Providers Care Arranger Assembler Name Role Phone Perlita Garza MD Primary Care Provider [phone]- [phone] Encounter Details Date Type Department Care Team ([facility] st Contact Info) Description 01/22/2024 Orders Only [facility] MED & PEDS [address] [facility] [place], [place] [phone] Perlita Garza MD [address] [place] [address] Obesity (BMI 30-39.9) (Primary Dx) Social History [...] documented as of this encounter Care Teams Arranger Assembler Relationship Specialty Start Date End Date Perlita Garza MD [address] [place] [phone] PCP - General Internal Medicine 03/04/18 documented as of this encounter
== END 2025-04-28 10:23 | disposition home or self-care (01) ==
LOC: HO.HWS 09:46
PROVIDERS: PCP Internal Medicine; Visit Provider Obstetrics & Gynecology
DX: N83.299 Other ovarian cyst, unspecified side (principal)
CPT/HCPCS: 98005